=== PATIENT | female | born 1975 | race Caucasian/White ===

== ENCOUNTER 2017-05-15 07:39 | Inpatient (IN) ==
--- NOTE | 2017-05-15 08:02 | Emergency Department Note ---
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 Chest pain Qualifiers: Chest pain type: precordial pain Qualified Code(s): R07.2 - Precordial pain Disposition: Admitted As Inpatient Condition: Fair General Adult HPI - General Chief complaint: ED Chest Pain Stated complaint: CP/Rotator cuff torn Time Seen by Provider: 05/15/17 07:44 Source: patient Mode of arrival: private vehicle Limitations: no limitations Nursing Notes Reviewed: Yes Vital Signs Reviewed: Yes - History of Present Illness Pt Subjective Complaint: chest pain Onset (ago): day(s) (since yesterday morning) Location: chest Radiation: neck Pain Severity: moderate Pain Scale: 8 Quality: aching, dull Consistency: constant Improves with: nothing Worsens with: nothing Associated symptoms: Reports: malaise, nausea/vomiting (nausea). Denies: confusion, cough, diaphoresis, fever/chills, headaches, loss of appetite, rash, seizure, shortness of breath, syncope, weakness Treatments Prior to Arrival: other (percocet) - Related Data Home Medications Medication Instructions Recorded Confirmed Gabapentin [Neurontin] 1,800 mg PO HS 05/15/17 05/15/17 Gabapentin [Neurontin] 600 mg PO BID 05/15/17 05/15/17 Insulin ASPART [Novolog Flexpen] 10 unit SQ TID 05/15/17 05/15/17 Insulin Glargine [Lantus] 40 unit PO QAM 05/15/17 05/15/17 Oxycodone HCl 10 mg PO BID PRN 05/15/17 05/15/17 Allergies Allergy/AdvReac Type Severity Reaction Status Date / Time metformin AdvReac See Verified 05/15/17 11:17 Comments All systems ED: reviewed and negative except as stated. Constitutional: Denies: fever, chills, weakness Eyes: Denies: eye pain, eye discharge, vision change ENT ED: Denies: ear pain, throat pain, congestion, dysphagia Cardiovascular: Reports: as per HPI, chest pain. Denies: palpitations, dyspnea on exertion, orthopnea, edema, syncope Respiratory: Denies: cough, dyspnea, wheezes, hemoptysis, stridor, sputum production Gastrointestinal: Reports: nausea. Denies: abdominal pain, vomiting, diarrhea Musculoskeletal: Reports: arthralgia ("Rotator cuff injury") Integumentary: Denies: rash Neurological: Denies: headache, weakness, numbness, paresthesias, confusion, vertigo Hematological/Lymphatic: Denies: easy bleeding, easy bruising Past Medical History - Past Medical History Attestation: Yes The following information was validated with the patient. Source: patient Medical history: Reports: diabetes, fibromyalgia, hypertension Surgical history: Reports: hysterectomy Psychiatric history: Reports: depression - Social History Smoking Status: Never smoker Smokeless Tobacco Status: No Alcohol use: Reports: none Drug use: Reports: none Physical Exam - General Limitations: no limitations General appearance: alert, in no apparent distress - Head Head exam: atraumatic, normocephalic, normal inspection - Eye Eye exam: Present: normal appearance, PERRL, EOMI. Absent: scleral icterus, conjunctival injection, periorbital swelling - ENT ENT exam: normal exam, normal oropharynx, mucous membranes dry - Neck Neck exam: Present: normal inspection, full ROM, trachea midline. Absent: tenderness, meningismus, lymphadenopathy - Chest Chest inspection: Present: normal inspection, symmetric chest wall rise. Absent : tenderness - Respiratory Respiratory exam: Present: normal lung sounds bilaterally. Absent: respiratory distress, wheezes, stridor - Cardiovascular Cardiovascular exam: Present: regular rate, normal rhythm, normal heart sounds - Abdominal Exam Abdominal exam: Present: soft, Non-Tender. Absent: distention, guarding, rebound, rigidity, mass - Extremities Exam Extremities exam: Present: normal inspection - Back Exam Back exam: Present: normal inspection - Neurological Exam Neurological exam: Present: alert, oriented X3, CN II-XII intact, normal gait - Psychiatric Psychiatric exam: Present: normal affect, normal mood - Skin Skin exam: Present: warm, dry, intact, normal color Course Course Narrative: Patient presents from home for evaluation of chest pain x 24 hours. She has mild dyspnea and cough along with generalized malaise and nausea. She did no take her insulin this morning citing that she did not feel well. She states that her sugar has been high the past week. She denies hemoptysis, dizziness, syncope, headache, weakness, leg swelling or pain. She has no hx of DVT, PE or IL. She denies every having a stress test or heart cath. She denies known family hx of ACS at a young age. ECG is normal. Labs, CXR and pain meds have been ordered. Labs show a glucose of almost 500 with 0.32 serum ketones. Anion gap is 10. More fluids ordered. Insulin ordered. CXR shows Right lung pneumonia v/s effusion. ABX ordered. Case discussed with Dr. Holloway. He has had face to face time with the patient and agrees with the assessment and plan. He recommends admission. Hospitalist contacted. He has accepted the patient. Given the patient's 24 hours of unchanging, constant chest pain with a normal EKG and a normal troponin, I feel it is unlikely that she is experiencing chest pain from ACS. She is being admitted for further evaluation of the pain and pneumonia. Serial troponins will most likely be ordered. - Reevaluation(s) Reevaluation #1: PAtient is still having pain. No RADHA/SOB at this time. Sats are 100% on room air. Pain pill ordered. Time: 10:02 Reevaluation #2: repeat accu check 259 Time: 13:55 Vital Signs Temperature 97.7 F 05/15/17 07:39 Pulse Rate 90 05/15/17 07:39 Respiratory Rate 16 05/15/17 07:39 Blood Pressure 156/106 05/15/17 07:39 O2 Sat by Pulse Oximetry 99 05/15/17 07:39 Temperature 97.7 F 05/15/17 07:39 Pulse Rate 96 05/15/17 11:35 Respiratory Rate 16 05/15/17 11:35 Blood Pressure 128/81 05/15/17 11:35 O2 Sat by Pulse Oximetry 96 05/15/17 11:35 Oxygen Delivery Oxygen Delivery Room Air Medical Decision Making - Lab Data Result diagrams: 05/15/17 08:30 05/15/17 08:30 Lab Results 05/15/17 05/15/17 05/15/17 Range/Units 08:30 08:30 08:30 WBC (4.3-11.1) K/mcL RBC (3.82-4.97) M/mcL Hgb (11.5-15.4) g/dL Hct (35.3-44.9) % MCV (83.0-100.0) fL MCH (28.0-33.3) pg MCHC (31.6-35.5) g/dL RDW (11.5-14.5) % Plt Count (140-400) K/mcL MPV (9.4-12.4) fL Immature Gran % (0-4) % Seg Neutrophils % % Lymphocytes % % Monocytes % % Eosinophils % % Basophils % % Neutrophils # (1.6-8.9) K/mcL Lymphocytes # (0.6-4.6) K/mcL Monocytes # (0.0-1.3) K/mcL Eosinophils # (0.0-0.6) K/mcL Basophils # (0.0-0.2) K/mcL PT 11.0 (9.4-12.1) Seconds INR 1.0 APTT 28.7 (26.0-36.0) Seconds Sodium (136-145) mEq/L Potassium (3.5-4.5) mEq/L Chloride (98-109) mEq/L Carbon Dioxide (19-29) mEq/L BUN (7-20) mg/dL Creatinine (0.57-1.11) mg/dL Est GFR ( Amer) (> 60) Est GFR (Non-Af Amer) (> 60) BUN/Creatinine Ratio (6-26) Glucose (70-99) mg/dL Calculated Osmolality (280-300) Calcium (8.6-10.8) mg/dL Total Bilirubin 0.4 (0.2-1.2) mg/dL Direct Bilirubin 0.2 (0.0-0.5) mg/dL Indirect Bilirubin 0.2 (0.0-1.2) mg/dL AST 10 (5-34) Units/L ALT 14 (0-55) Units/L Alkaline Phosphatase 79 (38-126) Units/L Troponin I (0-0.03) ng/mL Serum Total Protein 6.5 (6.0-8.3) g/dL Albumin 3.1 L (3.5-5.0) g/dL Globulin 3.4 (2.4-3.5) g/dL Albumin/Globulin Ratio 0.9 L (1.1-2.2) Lipase 34 (8-78) Units/L Beta-Hydroxybutyric Acd (0.02-0.27) mmol/L 05/15/17 05/15/17 05/15/17 Range/Units 08:30 08:30 08:30 WBC 6.7 (4.3-11.1) K/mcL RBC 4.99 H (3.82-4.97) M/mcL Hgb 14.8 (11.5-15.4) g/dL Hct 43.2 (35.3-44.9) % MCV 86.6 (83.0-100.0) fL MCH 29.7 (28.0-33.3) pg MCHC 34.3 (31.6-35.5) g/dL RDW 13.9 (11.5-14.5) % Plt Count 198 (140-400) K/mcL MPV 11.1 (9.4-12.4) fL Immature Gran % 0.3 (0-4) % Seg Neutrophils % 70.4 % Lymphocytes % 23.6 % Monocytes % 3.1 % Eosinophils % 2.2 % Basophils % 0.4 % Neutrophils # 4.7 (1.6-8.9) K/mcL Lymphocytes # 1.6 (0.6-4.6) K/mcL Monocytes # 0.2 (0.0-1.3) K/mcL Eosinophils # 0.2 (0.0-0.6) K/mcL Basophils # 0.0 (0.0-0.2) K/mcL PT (9.4-12.1) Seconds INR APTT (26.0-36.0) Seconds Sodium 135 L (136-145) mEq/L Potassium 4.2 (3.5-4.5) mEq/L Chloride 100 (98-109) mEq/L Carbon Dioxide 25 (19-29) mEq/L BUN 14 (7-20) mg/dL Creatinine 0.95 (0.57-1.11) mg/dL Est GFR ( Amer) > 60 (> 60) Est GFR (Non-Af Amer) > 60 (> 60) BUN/Creatinine Ratio 15 (6-26) Glucose 492 H (70-99) mg/dL Calculated Osmolality 302 H (280-300) Calcium 9.0 (8.6-10.8) mg/dL Total Bilirubin (0.2-1.2) mg/dL Direct Bilirubin (0.0-0.5) mg/dL Indirect Bilirubin (0.0-1.2) mg/dL AST (5-34) Units/L ALT (0-55) Units/L Alkaline Phosphatase (38-126) Units/L Troponin I 0.00 (0-0.03) ng/mL Serum Total Protein (6.0-8.3) g/dL Albumin (3.5-5.0) g/dL Globulin (2.4-3.5) g/dL Albumin/Globulin Ratio (1.1-2.2) Lipase (8-78) Units/L Beta-Hydroxybutyric Acd 0.32 H (0.02-0.27) mmol/L
[2017-05-15] MEDS ORDERED: Ondansetron 4 MG/2 ML VIAL IVP ONE (08:20)
[2017-05-15] MEDS ORDERED: Aspirin 81 MG TAB.CHEW PO ONE (08:20)
[2017-05-15] MEDS ORDERED: *HR* Morphine 2 MG/ML SYRINGE IVP ONE (08:20)
[2017-05-15] MEDS ORDERED: Nitroglycerin 0.4 MG TAB.SUBL SL PRN (08:22)
[2017-05-15 08:39] LABS: Basophils % 0.4 %; Eosinophils # 0.2 K/mcL (0.0-0.6); Eosinophils % 2.2 %; Hematocrit 43.2 % (35.3-44.9); Hemoglobin 14.8 g/dL (11.5-15.4); Immature Granulocytes % 0.3 % (0-4); Lymphocytes # 1.6 K/mcL (0.6-4.6); Lymphocytes % 23.6 %; Mean Corpuscular HGB Conc 34.3 g/dL (31.6-35.5); Mean Corpuscular Hemoglobin 29.7 pg (28.0-33.3); Mean Corpuscular Volume 86.6 fL (83.0-100.0); Mean Platelet Volume 11.1 fL (9.4-12.4); Monocytes # 0.2 K/mcL (0.0-1.3); Monocytes % 3.1 %; Neutrophils # 4.7 K/mcL (1.6-8.9); Platelet Count 198 K/mcL (140-400); Red Blood Count 4.99 M/mcL (3.82-4.97); Red Cell Distribution Width 13.9 % (11.5-14.5); Segmented Neutrophils % 70.4 %
[2017-05-15 08:46] LABS: Activated Partial Thrombo Time 28.7 Seconds (26.0-36.0)
[2017-05-15 08:52] LABS: BUN/Creatinine Ratio 15 (6-26); Blood Urea Nitrogen 14 mg/dL (7-20); Carbon Dioxide 25 mEq/L (19-29); Chloride 100 mEq/L (98-109); Glucose 492 mg/dL (70-99); Osmolality,Calculated 302 (280-300); Potassium 4.2 mEq/L (3.5-4.5); Sodium 135 mEq/L (136-145); eGFR For African Americans > 60 (> 60); eGFR For Non-African Americans > 60 (> 60)
[2017-05-15 08:54] LABS: Albumin 3.1 g/dL (3.5-5.0); Albumin/Globulin Ratio 0.9 (1.1-2.2); Bilirubin,Direct 0.2 mg/dL (0.0-0.5); Bilirubin,Indirect 0.2 mg/dL (0.0-1.2); Bilirubin,Total 0.4 mg/dL (0.2-1.2); Globulin 3.4 g/dL (2.4-3.5); Total Protein 6.5 g/dL (6.0-8.3)
[2017-05-15] MEDS ORDERED: 0.9 % Sodium Chloride 1,000 ML IVC ONE (09:51)
[2017-05-15] MEDS ORDERED: Insulin Human Regular 10 UNIT in 0.9 % Sodium Chloride 10 ML IV ONE (10:03)
[2017-05-15 10:10] LABS: Beta-Hydroxybutyric Acid 0.32 mmol/L (0.02-0.27)
[2017-05-15] MEDS ORDERED: Azithromycin 250 MG TABLET PO ONE (10:10)
[2017-05-15] MEDS ORDERED: *HR* OxyCODONE/APAP 5/325 TABLET PO ONE (10:11)
--- NOTE | 2017-05-15 11:11 | Emergency Department Note ---
START Narrative - START START: I examined this patient and my medical decision-making was reviewed with the Resident Physician. I agree with the documented findings, disposition and treatment plan as described except to the extent set forth below. 42-year-old female who presented to the ER with chest pain. Discovered that she had elevated blood sugars and had some ketones present concerning for early DKA. Patient is be evaluated for chest pain standpoint. Her troponin was negative. Chest x-ray showed possible right lower lobe infiltrate. In the setting of these findings as well as the elevated sugar will admit the patient overnight for observation.
[2017-05-15] MEDS ORDERED: Acetaminophen 325 MG TABLET PO PRN (14:32)
[2017-05-15] MEDS ORDERED: Ondansetron 4 MG/2 ML VIAL IVP PRN (14:32)
[2017-05-15] MEDS ORDERED: Naloxone 0.4 MG/ML INJ IVP PRN (14:32)
[2017-05-15] MEDS ORDERED: Pantoprazole 40 MG VIAL IVP SCH (14:45)
--- NOTE | 2017-05-15 15:03 | Internal Med History&Physical ---
<Marcelo Corona - Last Filed: 05/15/17 15:42> Date of Encounter: 05/15/17 Time of Encounter: 13:00 Assessment and Plan (1) Chest pain Current visit: Yes Status: Acute Pt. reports chest pain since yesterday that she describes as sharp and stabbing pressure is constant and not relieved or aggravated by anything. Patient denies previous cardiac history or recent stress test or echo. EKG today shows sinus rhythm with normal ECG. Echocardiogram ordered. Continuous cardiac telemetry. Initial troponin 0.00. Trend x2. Nothing by mouth at midnight. Nuclear pharm stress test ordered in a.m. Consider cardiology consult based on echo and stress test results. Patient to be monitored closely for signs of increasing cardiac and/or respiratory distress. Qualifiers: Chest pain type: other chest pain Qualified Code(s): R07.89 - Other chest pain; R07.8 - Other chest pain (2) Pneumonia Current visit: Yes Status: Acute 1-View CXR of the chest today shows findings suggesting a mild right pleural effusion and patchy right lung base atelectasis versus pneumonia. 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 Blood cultures x 2. Lactic acid. IV 0.9 NS 100 mL/HR. Legionella and strep pneumoniae antigens ordered IVPB azithromycin 500 mg daily and Levaquin 750 mg daily for infection coverage. Pt. does not currently meet sepsis criteria but will monitor pt. and f/u labs for signs of increasing infection, cardiac, and/or respiratory distress. Patient at high risk for further morbidity and sepsis based on current symptoms for pneumonia and chest pain, and risk factors. Inpatient. Qualifiers: Pneumonia type: due to unspecified organism Laterality: right Lung location: lower lobe of lung Qualified Code(s): J18.1 - Lobar pneumonia, unspecified organism (3) HTN (hypertension) Current visit: Yes Status: Chronic Hx of chronic HTN. Pt. states she does not take HTN medication at this time since her BP has been WNL. Monitor pt. and VS. Will add lisinopril if pt. becomes hypertensive. Qualifiers: Hypertension type: essential hypertension Qualified Code(s): I10 - Essential (primary) hypertension (4) HLD (hyperlipidemia) Current visit: Yes Status: Chronic Hx of chronic HLD. Pt. reports she does not currently take a statin. Lipid panel in a.m. labs. Add Lipitor 20 mg HS. Qualifiers: Hyperlipidemia type: pure hypercholesterolemia Qualified Code(s): E78.00 - Pure hypercholesterolemia, unspecified; E78.0 - Pure hypercholesterolemia (5) Diabetes Current visit: Yes Status: Chronic Hx of chronic diabetes. BG 492 on admission. Continue patient's insulin and add low-dose correction insulin sliding scale with hyperglycemic protocol. BG checks before meals at bedtime. A1c in a.m. labs. Qualifiers: Diabetes mellitus type: type 2 Diabetes mellitus complication status: with unspecified complications Diabetes mellitus [facility] insulin use: with [facility] use Qualified Code(s): E11.8 - Type 2 diabetes mellitus with unspecified complications; Z79.4 - half-way (current) use of insulin; Z79.4 - half-way ( current) use of insulin; Z79.4 - half-way (current) use of insulin; Z79.4 - half-way (current) use of insulin (6) Fibromyalgia Current visit: Yes Status: Chronic Hx of chronic fibromyalgia. Continue Neurontin. (7) DVT prophylaxis Current visit: Yes Status: Acute Lovenox 40 mg 0600 daily for DVT prophylaxis. Internal Medicine - H&P: HPI Chief complaint: Chest pain Admitted From: Emergency Dept Plans for Post Hospital Care: Home History of present illness: Ms. 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 Pt. reports there were no alleviating or aggravating factors. She also states that she has a lot of stress in her life and has chronic depression but does not take anything for this. She reports no recent hx of echocardiogram or stress test. Patient reports chest pain/pressure , nausea, weakness, and fatigue, but denies recent illness, fever, chills, vomiting, headache, abdominal pain, palpitations, changes in vision, unusual bleeding, shortness of breath, dizziness, lightheadedness, numbness, tingling, pre-syncope, or syncope. Past Med Surg Social Fam HX - Past Medical History Source: patient, old records reviewed Medical history: diabetes, fibromyalgia, hyperlipidemia, hypertension Psychiatric history: depression - Past Surgical History Surgical History: hysterectomy - Social History Smoking Status: Never smoker Smokeless Tobacco Status: No Alcohol use: none Drug use: none Current living situation: Home, With Family Activity Level: Independent ambulation Recent Out of Country Travel Within the Last 8 Weeks: No Exposure or Possible Exposure to Illness During Travel: No - Family History Father History Unknown: Yes Race: Family Member Ethnicity: Non- Living Status: Still Living Mother Race: Family Member Ethnicity: Non- Living Status: Still Living Hx Family Cardiac Disorders: Yes (MS, HTN, HLD) Hx Family Genitourinary Disorders: Yes (CKD on dialysis) Hx Family Endocrine Disorder: Yes (DM) Brother Race: Family Member Ethnicity: Non- Living Status: Still Living Hx Family Endocrine Disorder: Yes (Cirrhosis) Sister Race: Family Member Ethnicity: Non- Living Status: Still Living Hx Family Cardiac Disorders: Yes (MS, HLD, HTN) Hx Family Genitourinary Disorders: Yes (CKD) Hx Family Endocrine Disorder: Yes (DM) Internal Medicine - H&P: Meds Gabapentin [Neurontin] 1,800 mg PO HS 05/15/17 [History] Gabapentin [Neurontin] 600 mg PO BID 05/15/17 [History] Insulin ASPART [Novolog Flexpen] 10 unit SQ TID 05/15/17 [History] Insulin Glargine [Lantus] 40 unit PO QAM 05/15/17 [History] Oxycodone HCl 10 mg PO BID PRN 05/15/17 [History] 3 Allergy/AdvReac Type Severity Reaction Status Date / Time metformin AdvReac See Verified 05/15/17 11:17 Comments All Systems PM: A 10-system review of systems was performed and is negative for pertinent findings except as documented above in the HPI. - Constitutional Constitutional: as per HPI, fatigue, weakness, no chills, no fever(s), no night sweats - EENT Eyes: no change in vision, no discharge, no pain, no photophobia Ears: no ear discharge, no ear pain, no tinnitus Nose, mouth and throat: no dysphagia, no nasal discharge, no neck pain, no sore throat - Breasts Breasts: as per HPI - Cardiovascular Cardiovascular ROS IM: as per HPI, chest pain - Respiratory Respiratory: no cough, no dyspnea, no wheezing, no excessive phlegm production - Gastrointestinal Gastrointestinal: as per HPI, nausea - Genitourinary Genitourinary: no change in urinary stream, no dysuria, no flank pain, no hematuria Menstruation: as per HPI, post hysterectomy - Musculoskeletal Musculoskeletal ROS IM: myalgias, no numbness, no tingling - Integumentary Integumentary IM: no rash, no unusual bruising - Neurological Neurological ROS: no confusion, no convulsions, no focal weakness, no numbness, no tingling, no tremor(s) - Psychiatric Psychiatric: as per HPI, depression - Endocrine Endocrine IM: as per HPI - Hematologic/Lymphatic Hematologic/Lymphatic: no easy bruising - Allergic/Immunologic Allergic/Immunologic: as per HPI - Constitutional Vitals: Temp Pulse Resp BP Pulse Ox 97.7 F 85 18 139/89 96 05/15/17 07:39 05/15/17 13:24 05/15/17 14:35 05/15/17 14:35 05/15/17 13:24 General appearance: Present: cooperative, mild distress, A&O X 3, pleasant, obese, answers questions appropriately - Head Head exam: Present: atraumatic, normal inspection, normocephalic - Eye Eye exam: Present: PERRL, conjuntiva pink, sclera anicteric Pupils: Present: PERRL - ENT ENT exam: Present: normal exam, normal external ear exam - Neck Neck exam general surgery: Present: normal inspection, supple, trachea midline. Absent: lymphadenopathy - Respiratory Respiratory exam: Present: CTAB. Absent: accessory muscle use, rales, rhonchi, wheezes - Cardiovascular Cardiovascular exam: Present: RRR, +S1, +S2. Absent: diastolic murmur, gallop, rubs, systolic murmur - GI/Abdominal GI/Abdominal exam: Present: normal bowel sounds, soft, no peritoneal signs. Absent: distended, tenderness - Rectal Rectal exam: Present: deferred - Additional comments: exam deferred. - Extremities Exam Extremities exam: Present: warm, radial pulses palpable and symmetrical. Absent : calf tenderness, cyanotic, pedal edema - Back Exam Back exam: Present: normal inspection - Neurological Exam Neurological exam: Present: CN II-XII intact, oriented X3, no focal deficits. Absent: pronater drift, facial droop, speech deficit - Psychiatric Psychiatric exam: Present: flat affect - Skin Skin exam: Present: dry, intact Internal Med - H&P Results - Labs CBC & Chem 7: 05/15/17 08:30 05/15/17 08:30 - EKG Data EKG shows normal: sinus rhythm - EKG Data Prior EKG available for review: no Interpretation IM: normal EKG EKG comments: 05/15/17 15:20 EKG dated 05/15/17 shows sinus rhythm and normal ECG. - Diagnostic Studies Chest x-ray Additional comments: Impressions Chest X-Ray 05/15/17 08:20 IMPRESSION: 1. Findings suggesting a mild right pleural effusion and patchy right lung base atelectasis versus pneumonia. 2. Stable right hemidiaphragm elevation. D/ / 05/15/2017 09:04:09 Sterling Witt MD / timothy Interpreting Provider: Sterling Witt MD <George Solomon P - Last Filed: 05/15/17 18:48> Date of Encounter: 05/15/17 Internal Medicine - H&P: HPI History of present illness: Ms. Gu is a 42 year old female All Systems PM: A 10-system review of systems was performed and is negative for pertinent findings except as documented above in the HPI. - Constitutional Vitals: Temp Pulse Resp BP Pulse Ox 97.8 F 81 18 137/85 97 05/15/17 15:03 05/15/17 15:03 05/15/17 15:03 05/15/17 15:03 05/15/17 15:30 Internal Med - H&P Results - Labs CBC & Chem 7: 05/15/17 08:30 05/15/17 08:30 Labs: Cardiac Enzymes 05/15/17 Range/Units 16:33 Troponin I 0.01 (0-0.03) ng/mL - Attending Attestation I examined this patient and my medical decision-making was reviewed with the Resident Physician. I agree with the documented findings, disposition and treatment plan as described except to the extent set forth below. Chest pain to rule out ACS protocol. I agree with assessment and plan drawn above.
[2017-05-15] MEDS: 0.9 % Sodium Chloride 1,000 ML IVC SCH (15:14)
[2017-05-15] MEDS: Levofloxacin 750 MG/150 ML 750 MG/150 ML BAG IVPB SCH (15:14)
[2017-05-15] MEDS ORDERED: *HR* Dextrose 50 % in Water (Syg) 50 ML SYRINGE IVP PRN (15:28)
[2017-05-15] MEDS ORDERED: Dextrose Gel 15 GM PO PRN ×2 (15:28)
[2017-05-15] MEDS ORDERED: D5% in Water 1,000 ML IVC PRN (15:28)
[2017-05-15] MEDS: *HR* Morphine 2 MG/ML SYRINGE IVP PRN ×2 (16:38→22:33)
[2017-05-15] MEDS: Insulin LISPRO 300 UNITS/3 ML VIAL SQ SCH ×2 (16:41→19:48)
--- NOTE | 2017-05-15 19:39 | Electrocardiograph Report ---
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
[2017-05-15] MEDS: *HR* HYDROcodone/Acet 5/325 mg TABLET PO PRN (19:46)
[2017-05-15] MEDS: Gabapentin 300 MG CAPSULE PO SCH (19:46)
[2017-05-15] MEDS ORDERED: NON-FORMULARY MEDICATION 1 EACH EACH (Insulin Aspart [Novolog Flexpen] 10 UNIT) SQ SCH (21:00)
[2017-05-16] MEDS: 0.9 % Sodium Chloride 1,000 ML IVC SCH (03:53)
[2017-05-16] MEDS: *HR* Morphine 2 MG/ML SYRINGE IVP PRN ×4 (03:54→21:47)
[2017-05-16 04:42] LABS: Basophils % 0.4 %; Eosinophils # 0.2 K/mcL (0.0-0.6); Eosinophils % 2.3 %; Hematocrit 42.4 % (35.3-44.9); Hemoglobin 14.2 g/dL (11.5-15.4); Immature Granulocytes % 0.3 % (0-4); Lymphocytes # 2.3 K/mcL (0.6-4.6); Lymphocytes % 33.2 %; Mean Corpuscular HGB Conc 33.5 g/dL (31.6-35.5); Mean Corpuscular Hemoglobin 29.5 pg (28.0-33.3); Mean Platelet Volume 11.2 fL (9.4-12.4); Monocytes # 0.3 K/mcL (0.0-1.3); Monocytes % 4.2 %; Neutrophils # 4.1 K/mcL (1.6-8.9); Platelet Count 180 K/mcL (140-400); Red Blood Count 4.82 M/mcL (3.82-4.97); Red Cell Distribution Width 14.1 % (11.5-14.5); Segmented Neutrophils % 59.6 %
[2017-05-16 04:53] LABS: Hemoglobin A1C 9.6 %
[2017-05-16 04:59] LABS: Alanine Aminotransferase 11 Units/L (0-55); Albumin 2.7 g/dL (3.5-5.0); Albumin/Globulin Ratio 0.9 (1.1-2.2); Alkaline Phosphatase 69 Units/L (38-126); Aspartate Amino Transferase 9 Units/L (5-34); BUN/Creatinine Ratio 20 (6-26); Bilirubin,Total 0.3 mg/dL (0.2-1.2); Blood Urea Nitrogen 16 mg/dL (7-20); Calcium 8.4 mg/dL (8.6-10.8); Carbon Dioxide 25 mEq/L (19-29); Chloride 107 mEq/L (98-109); Chol/HDL Ratio 6.1 (0-4.9); Cholesterol 208 mg/dL (< 200); Globulin 3.1 g/dL (2.4-3.5); Glucose 297 mg/dL (70-99); HDL Cholesterol 34 mg/dL (40-59); LDL Cholesterol,Calculated 134 mg/dL (0-99); Magnesium 1.5 mg/dL (1.6-2.6); Osmolality,Calculated 304 (280-300); Potassium 3.9 mEq/L (3.5-4.5); Sodium 141 mEq/L (136-145); Total Protein 5.8 g/dL (6.0-8.3); Triglycerides 201 mg/dL (< 150); eGFR For African Americans > 60 (> 60); eGFR For Non-African Americans > 60 (> 60)
[2017-05-16] MEDS: *HR* Enoxaparin 40 MG/0.4 ML SYRINGE SQ SCH (05:37)
[2017-05-16] MEDS ORDERED: Regadenoson 0.4 MG/5 ML SYRINGE IVP ONE (06:30)
[2017-05-16] MEDS ORDERED: NON-FORMULARY MEDICATION 1 EACH EACH (Insulin Glargine [Lantus] 40 UNIT) PO SCH (09:00)
[2017-05-16] MEDS ORDERED: Azithromycin 500 MG in D5% in Water 250 ML IVPB SCH (10:00)
[2017-05-16] MEDS: Levofloxacin 750 MG/150 ML 750 MG/150 ML BAG IVPB SCH (10:05)
[2017-05-16] MEDS: Insulin DETEMIR 100 UNIT/ML X5UNITS SQ SCH (10:07)
[2017-05-16] MEDS: Insulin LISPRO 300 UNITS/3 ML VIAL SQ SCH ×6 (10:07→21:48)
[2017-05-16] MEDS: Aspirin Enteric Coated 81 MG Tablet PO SCH (10:09)
[2017-05-16] MEDS: Gabapentin 300 MG CAPSULE PO SCH ×3 (10:09→21:43)
[2017-05-16] MEDS ORDERED: Fluconazole 100 MG TABLET PO ONE (10:46)
--- NOTE | 2017-05-16 15:27 | Internal Med Progress Note ---
Date of Encounter: 05/16/17 Time of Encounter: 15:25 - Assessment and plan (1) Pneumonia Current Visit: Yes Status: Acute Qualifiers: Pneumonia type: due to unspecified organism Laterality: right Lung location: lower lobe of lung Qualified Code(s): J18.1 - Lobar pneumonia, unspecified organism (2) COPD exacerbation Current Visit: Yes Status: Acute (3) Chest pain Current Visit: Yes Status: Acute Qualifiers: Chest pain type: other chest pain Qualified Code(s): R07.89 - Other chest pain; R07.8 - Other chest pain (4) HTN (hypertension) Current Visit: Yes Status: Chronic Qualifiers: Hypertension type: essential hypertension Qualified Code(s): I10 - Essential (primary) hypertension (5) HLD (hyperlipidemia) Current Visit: Yes Status: Chronic Qualifiers: Hyperlipidemia type: pure hypercholesterolemia Qualified Code(s): E78.00 - Pure hypercholesterolemia, unspecified; E78.0 - Pure hypercholesterolemia (6) Diabetes Current Visit: Yes Status: Chronic Qualifiers: Diabetes mellitus type: type 2 Diabetes mellitus complication status: with unspecified complications Diabetes mellitus [facility] insulin use: with industry consultant use Qualified Code(s): E11.8 - Type 2 diabetes mellitus with unspecified complications; 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 Negative troponin. Echocardiogram showed EF of 60% with normal LV systolic function but diastolic dysfunction and no wall motion abnormality or valvular abnormality. A stress test has been done and results are pending. Also noted to have right-sided pneumonia with right middle lobe infiltrates and effusion. Continue IV antibiotics. Magnesium was noted to low and will be supplemented and recheck. Patient diabetes seems quite uncontrolled with elevated hemoglobin A1c. I will increase her Lantus and Humalog. At this time patient is asymptomatic but she did not describe her chest pain as pleuritic. - Constitutional Vitals: Temp Pulse Resp BP Pulse Ox 98.4 F 82 18 108/72 94 05/16/17 11:00 05/16/17 11:00 05/16/17 11:00 05/16/17 11:00 05/16/17 11:00 General appearance: Present: cooperative, mild distress, A&O X 3, pleasant, obese, answers questions appropriately - Head Head exam: Present: atraumatic, normocephalic - Eye Eye exam: Present: PERRL, conjuntiva pink, sclera anicteric Pupils: Present: PERRL - Neck Neck exam general surgery: Present: supple, trachea midline. Absent: lymphadenopathy - Respiratory Respiratory exam: Present: CTAB. Absent: accessory muscle use, rales, rhonchi, wheezes - Cardiovascular Cardiovascular exam: Present: RRR, +S1, +S2. Absent: diastolic murmur, gallop, rubs, systolic murmur - GI/Abdominal GI/Abdominal exam: Present: normal bowel sounds, soft, no peritoneal signs. Absent: distended, tenderness - Extremities Exam Extremities exam: Present: warm, radial pulses palpable and symmetrical. Absent : calf tenderness, cyanotic, pedal edema - Neurological Exam Neurological exam: Present: CN II-XII intact, oriented X3, no focal deficits. Absent: pronater drift, facial droop, speech deficit - Skin Skin exam: Present: dry, intact Internal Medicine: Result - Labs CBC & Chem 7: 05/16/17 03:50 05/16/17 03:50 Labs: Short CBC 05/16/17 Range/Units 03:50 WBC 6.9 (4.3-11.1) K/mcL Hgb 14.2 (11.5-15.4) g/dL Hct 42.4 (35.3-44.9) % Plt Count 180 (140-400) K/mcL Neutrophils # 4.1 (1.6-8.9) K/mcL BMP 05/16/17 03:50 Sodium 141 Potassium 3.9 Chloride 107 Carbon Dioxide 25 BUN 16 Creatinine 0.81 Glucose 297 H Calcium 8.4 L Cardiac Enzymes 05/15/17 05/15/17 Range/Units 16:33 22:18 Troponin I 0.01 0.00 (0-0.03) ng/mL Liver Function 05/16/17 Range/Units 03:50 Total Bilirubin 0.3 (0.2-1.2) mg/dL AST 9 (5-34) Units/L ALT 11 (0-55) Units/L Alkaline Phosphatase 69 (38-126) Units/L Albumin 2.7 L (3.5-5.0) g/dL - ABG Interpretation ABG results: PT/INR, D-dimer PT 11.0 Seconds (9.4-12.1) 05/15/17 08:30 - Impressions Impressions Echocardiogram 05/16/17 14:38 Impressions: LVEF 60%. Mild left ventricular diastolic dysfunction. Normal right ventricular structure and function. No significant valvular dysfunction. No pulmonary hypertension. Left Ventricular Wall Motion: Rest Echo Findings All wall segments showed normal motion. Findings: Study Quality * Technically adequate exam. ECG Findings * Normal sinus rhythm. Left Ventricle * LVEF 60%. * Normal LV chamber size, wall thickness and function. * Mild left ventricular diastolic dysfunction. Right Ventricle * Normal right ventricular structure and function. Left Atrium * Normal left atrial size. Right Atrium * Normal right atrial size. Aortic Valve * No aortic regurgitation. * Trileaflet aortic valve. * Normal aortic valve structure. * No aortic stenosis. Mitral Valve * Normal mitral valve structure. * No mitral stenosis. * Trace mitral regurgitation. Tricuspid Valve * Tricuspid valve not well visualized. * No tricuspid regurgitation. * Estimated RA pressure is 3 mmHg. Pulmonic Valve * Pulmonic valve is not well visualized. * No pulmonic stenosis. * No pulmonic regurgitation. Pulmonary Artery * Pulmonary artery not well visualized. Aorta * Normally sized aortic root. Pericardium * There is no pericardial effusion present. Interatrial Septum * No evidence of PFO by color Doppler. IVC * Normal IVC dimensions and inspiratory collapse. Consult Discharge Plan - Plan Referrals: NONE,PCP [Primary Care Provider] -
[2017-05-16] MEDS: *HR* HYDROcodone/Acet 5/325 mg TABLET PO PRN (20:11)
[2017-05-17 03:36] LABS: Basophils % 0.3 %; Eosinophils # 0.2 K/mcL (0.0-0.6); Eosinophils % 2.8 %; Hematocrit 36.9 % (35.3-44.9); Immature Granulocytes % 0.3 % (0-4); Lymphocytes # 2.3 K/mcL (0.6-4.6); Lymphocytes % 35.9 %; Mean Corpuscular HGB Conc 33.6 g/dL (31.6-35.5); Mean Corpuscular Hemoglobin 29.6 pg (28.0-33.3); Mean Corpuscular Volume 88.1 fL (83.0-100.0); Mean Platelet Volume 11.7 fL (9.4-12.4); Monocytes # 0.3 K/mcL (0.0-1.3); Monocytes % 4.7 %; Neutrophils # 3.5 K/mcL (1.6-8.9); Platelet Count 199 K/mcL (140-400); Red Blood Count 4.19 M/mcL (3.82-4.97)
[2017-05-17 03:38] LABS: Hemoglobin 12.4 g/dL (11.5-15.4)
[2017-05-17 03:53] LABS: Alanine Aminotransferase 7 Units/L (0-55); Albumin 2.5 g/dL (3.5-5.0); Alkaline Phosphatase 60 Units/L (38-126); Aspartate Amino Transferase 8 Units/L (5-34); BUN/Creatinine Ratio 22 (6-26); Bilirubin,Total 0.2 mg/dL (0.2-1.2); Blood Urea Nitrogen 17 mg/dL (7-20); Calcium 8.3 mg/dL (8.6-10.8); Carbon Dioxide 22 mEq/L (19-29); Chloride 109 mEq/L (98-109); Globulin 2.6 g/dL (2.4-3.5); Glucose 415 mg/dL (70-99); Osmolality,Calculated 303 (280-300); Potassium 4.2 mEq/L (3.5-4.5); Sodium 137 mEq/L (136-145); Total Protein 5.1 g/dL (6.0-8.3); eGFR For African Americans > 60 (> 60); eGFR For Non-African Americans > 60 (> 60)
[2017-05-17] MEDS: *HR* Morphine 2 MG/ML SYRINGE IVP PRN (04:45)
[2017-05-17] MEDS: 0.9 % Sodium Chloride 1,000 ML IVC SCH (04:46)
[2017-05-17] MEDS: *HR* Enoxaparin 40 MG/0.4 ML SYRINGE SQ SCH (06:47)
[2017-05-17] MEDS: Gabapentin 300 MG CAPSULE PO SCH ×2 (07:35→11:48)
[2017-05-17] MEDS: *HR* HYDROcodone/Acet 5/325 mg TABLET PO PRN ×2 (07:35→11:48)
[2017-05-17] MEDS: Aspirin Enteric Coated 81 MG Tablet PO SCH (07:35)
[2017-05-17] MEDS: Insulin LISPRO 300 UNITS/3 ML VIAL SQ SCH ×4 (07:36→11:40)
[2017-05-17] MEDS: Levofloxacin 750 MG/150 ML 750 MG/150 ML BAG IVPB SCH (07:38)
[2017-05-17] MEDS: Insulin DETEMIR 100 UNIT/ML X5UNITS SQ SCH (08:14)
[2017-05-17 10:44] VITALS: BP 136/85
--- NOTE | 2017-05-17 14:20 | Discharge Summary ---
Date of Encounter: 05/17/17 Time of Encounter: 14:04 - Discharge Diagnosis (1) Pneumonia Priority: Primary Status: Acute Qualifiers: Pneumonia type: due to unspecified organism Laterality: right Lung location: lower lobe of lung Qualified Code(s): J18.1 - Lobar pneumonia, unspecified organism (2) COPD exacerbation Priority: Primary Status: Acute (3) Chest pain Priority: Primary Status: Acute Qualifiers: Chest pain type: other chest pain Qualified Code(s): R07.89 - Other chest pain; R07.8 - Other chest pain (4) HTN (hypertension) Priority: Secondary Status: Chronic Qualifiers: Hypertension type: essential hypertension Qualified Code(s): I10 - Essential (primary) hypertension (5) HLD (hyperlipidemia) Priority: Secondary Status: Chronic Qualifiers: Hyperlipidemia type: pure hypercholesterolemia Qualified Code(s): E78.00 - Pure hypercholesterolemia, unspecified; E78.0 - Pure hypercholesterolemia (6) Diabetes Priority: Secondary Status: Chronic Qualifiers: Diabetes mellitus type: type 2 Diabetes mellitus complication status: with unspecified complications Diabetes mellitus nursing home insulin use: with adjunct faculty for medical terminology use Qualified Code(s): E11.8 - Type 2 diabetes mellitus with unspecified complications; 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; Z79.4 - [facility] ( current) use of insulin; Z79.4 - [facility] (current) use of insulin; 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 05/17/17 [Rx] Atorvastatin [Lipitor] 20 mg PO HS #30 tablet 05/17/17 [Rx] Metoprolol [Lopressor] 12.5 mg PO BID #30 tablet 05/17/17 [Rx] Nitroglycerin 0.4 mg SL Q5MIN PRN #25 tab.subl 05/17/17 [Rx] levoFLOXacin [Levaquin] 750 mg PO Q24H #7 tablet 05/17/17 [Rx] Allergies/Adverse Reactions: 3 Allergy/AdvReac Type Severity Reaction Status Date / Time metformin AdvReac See Verified 05/15/17 11:17 Comments Date of admission: 05/15/17 14:58 Primary care physician: PCP NONE Consults: 05/15/17 15:29 Consult to Nutrition [CONS] Routine Comment: Consulting Provider: NUTRITION Reason for Dietary Consult: MST Score Discharging clinician: Jennifer Lyn Anticipated date of discharge: 05/17/17 - Patient Status Disposition: Home, Self-Care Condition: Fair Functional capacity at discharge: independent ambulation Overall status at discharge: patient is progressing back to baseline - Discharge Instructions Instructions: Metoprolol (By mouth), Nitroglycerin (By mouth), Atorvastatin ( By mouth), Levofloxacin (By mouth), Chest Pain (DC), Pneumonia (DC) Follow Up With: Marcelo Molina CNP [Advanced Practice Nurse] - 05/22/17 1:00 pm (Please follow up with your primary care in a week) Vinny Russell [Partnered Physician] - 05/23/17 1:00 pm (please follow up as schedule...) - Diet and Activity Activity: resume usual activities as tolerated Diet: advance to your usual diet Hospital course: Ms. Gu is a 42 year old female Admitted for chest pain. Negative troponin. Echocardiogram showed EF of 60% with normal LV systolic function but diastolic dysfunction and no wall motion abnormality or valvular abnormality. A stress test has been done and perfusion scan is negative as well as the stress portion however there is an apical defect of unclear significance. Patient symptoms have resolved. She will be started on beta michell and aspirin when necessary nitrates for now. She will be referred to cardiology for outpatient consultation for further assessment.. Also noted to have right- sided pneumonia with right middle lobe infiltrates and effusion. Continue antibiotics. Patient diabetes seems quite uncontrolled with elevated hemoglobin A1c. I will increase her Lantus and Humalog. At this time patient is asymptomatic . - Time Spent with Patient Total time spent providing and/or coordinating discharge services: Greater than 30 minutes - Constitutional Vitals: Temp Pulse Resp BP Pulse Ox 98.5 F 90 18 136/85 91 05/17/17 10:36 05/17/17 10:36 05/17/17 10:36 05/17/17 10:36 05/17/17 10:36 General appearance: Present: cooperative, mild distress, A&O X 3, pleasant, obese, answers questions appropriately - Head Head exam: Present: atraumatic, normocephalic - Eye Eye exam: Present: PERRL, conjuntiva pink, sclera anicteric Pupils: Present: PERRL - Neck Neck exam general surgery: Present: supple, trachea midline. Absent: lymphadenopathy - Respiratory Respiratory exam: Present: CTAB. Absent: accessory muscle use, rales, rhonchi, wheezes - Cardiovascular Cardiovascular exam: Present: RRR, +S1, +S2. Absent: diastolic murmur, gallop, rubs, systolic murmur - GI/Abdominal GI/Abdominal exam: Present: normal bowel sounds, soft, no peritoneal signs. Absent: distended, tenderness - Extremities Exam Extremities exam: Present: warm, radial pulses palpable and symmetrical. Absent : calf tenderness, cyanotic, pedal edema - Neurological Exam Neurological exam: Present: CN II-XII intact, oriented X3, no focal deficits. Absent: pronater drift, facial droop, speech deficit - Skin Skin exam: Present: dry, intact
[2017-05-17] MEDS ORDERED: Insulin DETEMIR 100 UNIT/ML X5UNITS SQ SCH (21:00)
[2017-05-18] MEDS ORDERED: levoFLOXacin 750 MG TABLET PO SCH (09:00)
[2017-05-18 19:30] LABS: APTT (LE Anticoag) 38 sec (32-48); Diluted Russell Viper Venom 32 sec (33-44); PT (LE-Anticoag) 11.9 sec (12.0-15.5)
[2017-05-20 08:44] LABS: ANA IgG by ELISA NONE DETECTED (None Detected)
== END 2017-05-17 15:01 | disposition home or self-care (01) | DRG 194 ==
LOC: EMEROO 07:39 → 2NENU 07:39 → 2ANU 14:57
PROVIDERS: ADMIT Internal Medicine; ATTEND Internal Medicine

== ENCOUNTER 2017-05-23 12:44 | Inpatient (IN) ==
--- NOTE | 2017-05-23 13:00 | Emergency Department Note ---
Disposition Clinical Impression: Diabetic ketoacidosis Qualifiers: Diabetes mellitus type: type 1 Diabetes mellitus complication detail: without coma Qualified Code(s): E10.10 - Type 1 diabetes mellitus with ketoacidosis without coma Syncope Qualifiers: Syncope type: unspecified Qualified Code(s): R55 - Syncope and collapse Disposition: Admitted As Inpatient Condition: Fair Referrals: Marcelo Molina CNP [Primary Care Provider] - Forms: ED Satisfaction Letter Time of Disposition: 15:10 General Adult HPI - General Chief complaint: ED Fall Stated complaint: SYNCOPE,CP,HYPERGLYCEMIA Time Seen by Provider: 05/23/17 12:45 Nursing Notes Reviewed: Yes Vital Signs Reviewed: Yes - History of Present Illness HPI Narrative: She has a history of type 1 diabetes and I did review her previous records and recent admission for treatment of pneumonia and presents after she was at a store and had a syncopal episode after she left the store and was sitting in her car. No injuries. Did have preceding lightheadedness. Afterwards she developed a sharp and pleuritic chest pain. Her chest pain is not exertional. It does radiate to the neck. No diaphoresis or dyspnea. Did have some blurred vision. No fever. Does have rhinorrhea and a frothy clear colored sputum cough , no sneezing. No blood in the urine or stool. No pain or swelling of the lower extremities. Does have lower extremity weakness and does feel weak generally but no lateral weakness or numbness of the extremities. No slurred speech or facial droop. She said she does feel confused for the last several days. Her blood sugar was checked prior to arrival which was too high to register. Social history: She did drive here, no smoking or alcohol - Related Data Home Medications Medication Instructions Recorded Confirmed Gabapentin [Neurontin] 1,800 mg PO HS 05/15/17 05/23/17 Gabapentin [Neurontin] 600 mg PO BID 05/15/17 05/23/17 Insulin ASPART [Novolog Flexpen] 10 unit SQ TID 05/15/17 05/23/17 Insulin Glargine [Lantus] 40 unit PO QAM 05/15/17 05/23/17 Previous Rx's Medication Instructions Recorded Aspirin Enteric Coated [Aspirin EC] 81 mg PO DAILY tablet. 05/17/17 Atorvastatin [Lipitor] 20 mg PO HS #30 tablet 05/17/17 Metoprolol [Lopressor] 12.5 mg PO BID #30 tablet 05/17/17 Nitroglycerin 0.4 mg SL Q5MIN PRN #25 tab.subl 05/17/17 levoFLOXacin [Levaquin] 750 mg PO Q24H #7 tablet 05/17/17 Allergies Allergy/AdvReac Type Severity Reaction Status Date / Time metformin AdvReac See Verified 05/15/17 11:17 Comments Review of Systems: As Per HPI Past Medical History - Past Medical History Medical history: Reports: diabetes, fibromyalgia, hyperlipidemia, hypertension Surgical history: Reports: hysterectomy Psychiatric history: Reports: depression - Social History Smoking Status: Never smoker Smokeless Tobacco Status: No Alcohol use: Reports: none Drug use: Reports: none Physical Exam CONSTITUTIONAL: Tired and ill-appearing, well-nourished; A&O X3, in no apparent distress, breathing comfortably HEAD: Normocephalic; atraumatic. EYES: PERRL, EOMI, no scleral icterus NOSE: The nose is normal in appearance without rhinorrhea NECK: Supple without rigidity, no ROSA M RESP: Normal chest excursion with respiration; breath sounds clear and equal bilaterally; no wheezes, rhonchi, or rales CARD: Regular rhythm, without murmurs, rub or gallop ABD: Non-distended; non-tender, soft, without rigidity, rebound or guarding SKIN: Normal for age and race; warm and dry; no apparent lesions, no rash NEUROLOGICAL: Patient is alert and oriented times three. Cranial nerves III- XII are intact. Sensory and motor functions are intact. Strength is 5/5 for flexion and extension in all 4 extremities. Finger to nose testing is equal and normal bilaterally. extremities: Pulses 2+ and equal in all 4 extremities Course Vital Signs Temperature 98.3 F 05/23/17 12:45 Pulse Rate 91 05/23/17 12:45 Respiratory Rate 18 05/23/17 12:45 Blood Pressure 170/90 05/23/17 12:45 O2 Sat by Pulse Oximetry 100 05/23/17 12:45 Temperature 98.3 F 05/23/17 12:45 Pulse Rate 81 05/23/17 14:11 Respiratory Rate 20 05/23/17 14:11 Blood Pressure 164/78 05/23/17 14:11 O2 Sat by Pulse Oximetry 100 05/23/17 12:45 Medical Decision Making - MDM Narrative Medical decision making narrative: IV fluids, labs, CTA of the chest to look for pulmonary embolism with the syncope and pleuritic chest pain after the recent admission. She is mentating well. Is able to give a good history. 1300 I did review the patient's EKG showing normal sinus rhythm with rate of 87. There is some T-wave inversion inferiorly which was present on the previous EKG that I compared it to previous EKG was from 8 days ago. No evidence of arrhythmia. 1302 I did discuss with the community pharmacist who felt the patient could likely blow to the floor depending on a VBG and if the pH was about 7.2 so I did perform the VBG with a pH 7.37 I did speak with Dr. Tapia who accepts the patient for admission to [facility]. and I also did review the CT scan which did not show pulmonary embolism or any evidence of new onset pneumonia so I do not feel that the hyperglycemia is from sepsis. She does have elevated lactate level which is likely from lactic acidosis from her underlying process of diabetic ketoacidosis and the lactate level certainly could be repeated as an inpatient. All the labs were reviewed with both the community pharmacist and the hospitalist and the patient did receive IV fluids, insulin drip and will be admitted. 1509 - Medical Records Medical records reviewed: Yes I reviewed the patient's medical records. - Lab Data Lab results reviewed: Yes I reviewed the patient's lab results. Result diagrams: 05/23/17 13:24 05/23/17 13:24 Lab Results 05/23/17 05/23/17 05/23/17 Range/Units 12:48 12:49 13:24 WBC 5.8 (4.3-11.1) K/mcL RBC 4.78 (3.82-4.97) M/mcL Hgb 14.0 D (11.5-15.4) g/dL Hct 44.2 (35.3-44.9) % MCV 92.5 (83.0-100.0) fL MCH 29.3 (28.0-33.3) pg MCHC 31.7 (31.6-35.5) g/dL RDW 13.7 (11.5-14.5) % Plt Count 163 (140-400) K/mcL MPV 11.4 (9.4-12.4) fL VBG pH (7.32-7.42) pH Units VBG pCO2 (41-51) mmHg VBG pO2 (25-50) mmHg VBG HCO3 (21-27) mEq/L Sodium (136-145) mEq/L Potassium (3.5-4.5) mEq/L Chloride (98-109) mEq/L Carbon Dioxide (19-29) mEq/L BUN (7-20) mg/dL Creatinine (0.57-1.11) mg/dL Est GFR ( Amer) (> 60) Est GFR (Non-Af Amer) (> 60) BUN/Creatinine Ratio (6-26) Glucose (70-99) mg/dL POC Glucose > 600 H* > 600 H* (58-89) Calculated Osmolality (280-300) Lactic Acid (0.5-2.2) mmol/L Calcium (8.6-10.8) mg/dL Total Bilirubin (0.2-1.2) mg/dL Direct Bilirubin (0.0-0.5) mg/dL Indirect Bilirubin (0.0-1.2) mg/dL AST (5-34) Units/L ALT (0-55) Units/L Alkaline Phosphatase (38-126) Units/L Serum Total Protein (6.0-8.3) g/dL Albumin (3.5-5.0) g/dL Globulin (2.4-3.5) g/dL Albumin/Globulin Ratio (1.1-2.2) 05/23/17 05/23/17 05/23/17 Range/Units 13:24 13:40 14:36 WBC (4.3-11.1) K/mcL RBC (3.82-4.97) M/mcL Hgb (11.5-15.4) g/dL Hct (35.3-44.9) % MCV (83.0-100.0) fL MCH (28.0-33.3) pg MCHC (31.6-35.5) g/dL RDW (11.5-14.5) % Plt Count (140-400) K/mcL MPV (9.4-12.4) fL VBG pH 7.37 (7.32-7.42) pH Units VBG pCO2 41 (41-51) mmHg VBG pO2 96 H (25-50) mmHg VBG HCO3 24 (21-27) mEq/L Sodium 133 L (136-145) mEq/L Potassium 4.4 (3.5-4.5) mEq/L Chloride 102 (98-109) mEq/L Carbon Dioxide 18 L (19-29) mEq/L BUN 13 (7-20) mg/dL Creatinine 1.11 (0.57-1.11) mg/dL Est GFR ( Amer) > 60 (> 60) Est GFR (Non-Af Amer) 54 L (> 60) BUN/Creatinine Ratio 12 (6-26) Glucose 746 H* (70-99) mg/dL POC Glucose (58-89) Calculated Osmolality 312 H (280-300) Lactic Acid 4.7 H* (0.5-2.2) mmol/L Calcium 8.6 (8.6-10.8) mg/dL Total Bilirubin 0.2 (0.2-1.2) mg/dL Direct Bilirubin 0.1 (0.0-0.5) mg/dL Indirect Bilirubin 0.1 (0.0-1.2) mg/dL AST 12 (5-34) Units/L ALT 18 (0-55) Units/L Alkaline Phosphatase 83 (38-126) Units/L Serum Total Protein 6.5 (6.0-8.3) g/dL Albumin 3.0 L (3.5-5.0) g/dL Globulin 3.5 (2.4-3.5) g/dL Albumin/Globulin Ratio 0.9 L (1.1-2.2) 05/23/17 Range/Units 15:01 WBC (4.3-11.1) K/mcL RBC (3.82-4.97) M/mcL Hgb (11.5-15.4) g/dL Hct (35.3-44.9) % MCV (83.0-100.0) fL MCH (28.0-33.3) pg MCHC (31.6-35.5) g/dL RDW (11.5-14.5) % Plt Count (140-400) K/mcL MPV (9.4-12.4) fL VBG pH (7.32-7.42) pH Units VBG pCO2 (41-51) mmHg VBG pO2 (25-50) mmHg VBG HCO3 (21-27) mEq/L Sodium (136-145) mEq/L Potassium (3.5-4.5) mEq/L Chloride (98-109) mEq/L Carbon Dioxide (19-29) mEq/L BUN (7-20) mg/dL Creatinine (0.57-1.11) mg/dL Est GFR ( Amer) (> 60) Est GFR (Non-Af Amer) (> 60) BUN/Creatinine Ratio (6-26) Glucose (70-99) mg/dL POC Glucose 590 H* (58-89) Calculated Osmolality (280-300) Lactic Acid (0.5-2.2) mmol/L Calcium (8.6-10.8) mg/dL Total Bilirubin (0.2-1.2) mg/dL Direct Bilirubin (0.0-0.5) mg/dL Indirect Bilirubin (0.0-1.2) mg/dL AST (5-34) Units/L ALT (0-55) Units/L Alkaline Phosphatase (38-126) Units/L Serum Total Protein (6.0-8.3) g/dL Albumin (3.5-5.0) g/dL Globulin (2.4-3.5) g/dL Albumin/Globulin Ratio (1.1-2.2) - Radiology Data Radiology results reviewed: Yes I reviewed the patient's radiology results. Critical Care Time Critical Care Time: Yes Total Critical Care Time: 30 Attestation: 30 minutes of critical care time spent with the patient who came in with significant weakness post-syncopal episode, blood sugar above 700, diabetic ketoacidosis, insulin drip, cardiac monitoring and EKG and multiple consultations 1511
[2017-05-23] MEDS: 0.9 % Sodium Chloride 1,000 ML IVC SCH ×6 (13:04→18:22)
[2017-05-23 13:33] LABS: Hematocrit 44.2 % (35.3-44.9); Mean Corpuscular HGB Conc 31.7 g/dL (31.6-35.5); Mean Corpuscular Hemoglobin 29.3 pg (28.0-33.3); Mean Corpuscular Volume 92.5 fL (83.0-100.0); Mean Platelet Volume 11.4 fL (9.4-12.4); Platelet Count 163 K/mcL (140-400); Red Blood Count 4.78 M/mcL (3.82-4.97); Red Cell Distribution Width 13.7 % (11.5-14.5)
[2017-05-23 13:44] LABS: Alanine Aminotransferase 18 Units/L (0-55); Albumin/Globulin Ratio 0.9 (1.1-2.2); Alkaline Phosphatase 83 Units/L (38-126); Aspartate Amino Transferase 12 Units/L (5-34); BUN/Creatinine Ratio 12 (6-26); Bilirubin,Direct 0.1 mg/dL (0.0-0.5); Bilirubin,Indirect 0.1 mg/dL (0.0-1.2); Bilirubin,Total 0.2 mg/dL (0.2-1.2); Blood Urea Nitrogen 13 mg/dL (7-20); Calcium 8.6 mg/dL (8.6-10.8); Carbon Dioxide 18 mEq/L (19-29); Chloride 102 mEq/L (98-109); Globulin 3.5 g/dL (2.4-3.5); Osmolality,Calculated 312 (280-300); Potassium 4.4 mEq/L (3.5-4.5); Sodium 133 mEq/L (136-145); Total Protein 6.5 g/dL (6.0-8.3); eGFR For African Americans > 60 (> 60); eGFR For Non-African Americans 54 (> 60)
[2017-05-23 13:48] LABS: Glucose 746 mg/dL (70-99)
[2017-05-23] MEDS ORDERED: *HR* HYDROmorphone (PF) 1 MG/ML SYRINGE IVP ONE (13:54)
[2017-05-23] MEDS ORDERED: Ondansetron 4 MG/2 ML VIAL IVP ONE (13:54)
[2017-05-23] MEDS ORDERED: Insulin Human Regular 100 UNIT in 0.9 % Sodium Chloride 100 ML IVC SCH ×2 (14:00→19:15)
[2017-05-23] MEDS ORDERED: Insulin Human Regular 150 UNIT in 0.9 % Sodium Chloride 150 ML IVC SCH (14:15)
[2017-05-23 14:41] LABS: VBG HCO3 24 mEq/L (21-27); VBG PCO2 41 mmHg (41-51); VBG PH 7.37 pH Units (7.32-7.42); VBG PO2 96 mmHg (25-50)
[2017-05-23] MEDS ORDERED: *HR* Dextrose 50 % in Water (Syg) 50 ML SYRINGE IVP PRN ×2 (17:33→19:09)
[2017-05-23] MEDS ORDERED: D5% in 0.45% NACL w KCl 20 MEQ/1,000 ML MLS IVC PRN (17:33)
[2017-05-23] MEDS ORDERED: D5% in 0.45% NACL 1,000 ML IVC PRN (17:33)
[2017-05-23] MEDS ORDERED: Nitroglycerin 0.4 MG TAB.SUBL SL PRN (17:40)
[2017-05-23] MEDS ORDERED: Ondansetron 4 MG/2 ML VIAL IVP PRN (17:42)
[2017-05-23] MEDS ORDERED: *HR* HYDROcodone/Acet 5/325 mg TABLET PO PRN (17:42)
[2017-05-23] MEDS ORDERED: Naloxone 0.4 MG/ML INJ IVP PRN (17:42)
[2017-05-23] MEDS ORDERED: 0.45 % Sodium Chloride w/KCl 20 MEQ/1,000 ML MLS IVC SCH (17:45)
[2017-05-23] MEDS ORDERED: levoFLOXacin 750 MG TABLET PO SCH (17:45)
--- NOTE | 2017-05-23 17:58 | Internal Med History&Physical ---
<Jose Eduardo Bradley - Last Filed: 05/23/17 21:59> Date of Encounter: 05/23/17 Time of Encounter: 17:57 Assessment and Plan (1) Type 2 diabetes mellitus with hyperosmolarity without nonketotic hyperglycemic-hyperosmolar coma (N[facility]HC) Current visit: Yes Status: Acute Hyperglycemia, anion gap of 21 initially. Corrected sodium of 141 and potassium is 4.4 start 0.45 saline with 20 of potassium per protocol start insulin drip, with appropriate IV fluid replacement per protocol Electrolytes panel now Electrolyte replacement protocol every 4 hours Nothing by mouth Every hour Accu-Cheks Start subcutaneous insulin once blood glucose stable Continuous telemetry, continuous O2 monitoring (2) Syncope Current visit: Yes Status: Acute Suspected syncopal event this afternoon. Reports that she was shopping and began to feel fatigued. She went to her car to rest and believes she may have passed out. Denies any prior syncopal events, currently hemodynmically stable , no focal neurological deficits Carotid Doppler ultrasound bilateral Orthostatic vital signs Continuous telemetry to monitor for arrhythmic events Qualifiers: Syncope type: unspecified Qualified Code(s): R55 - Syncope and collapse (3) Chest pain Current visit: Yes Status: Acute Continues to endorse nonexertional sharp chest pain exacerbated with respirations. Reports chest pain radiating bilateral neck, no prior cardiac history. Recent stress test 05/24 negative for ischemia, echocardiogram 05/24 mild diastolic dysfunction with an EF of 60%. Will continue further workup due to continued chest pain. Serial troponins Continuous telemetry CTA completed, negative for PE Morphine for chest pain, oxygen when necessary, sublingual nitroglycerin when necessary,ASA already taken this morning Qualifiers: Chest pain type: other chest pain Qualified Code(s): R07.89 - Other chest pain; R07.8 - Other chest pain (4) HTN (hypertension) Current visit: Yes Status: Chronic Stable, continue beta michell Qualifiers: Hypertension type: essential hypertension Qualified Code(s): I10 - Essential (primary) hypertension (5) HLD (hyperlipidemia) Current visit: Yes Status: Chronic Continue statin Discussed lifestyle modification Qualifiers: Hyperlipidemia type: pure hypercholesterolemia Qualified Code(s): E78.00 - Pure hypercholesterolemia, unspecified; E78.0 - Pure hypercholesterolemia (6) Diabetes Current visit: Yes Status: Chronic Stop home sliding scale insulin coverage while on insulin drip. Resume sliding scale coverage when anion gap less than 11. See plan above Qualifiers: Diabetes mellitus type: type 2 Diabetes mellitus complication status: with unspecified complications Diabetes mellitus psychiatric social worker insulin use: with jail use Qualified Code(s): E11.8 - Type 2 diabetes mellitus with unspecified complications; Z79.4 - alarm mechanism adjuster (current) use of insulin; Z79.4 - group home ( current) use of insulin; Z79.4 - group home (current) use of insulin; Z79.4 - group home (current) use of insulin (7) DVT prophylaxis Current visit: Yes Status: Acute Lovenox 40 mg subcutaneous daily Internal Medicine - H&P: HPI Chief complaint: DK, chest pain, syncopal event today Admitted From: Home Plans for Post Hospital Care: Home History of present illness: Ms. Gu is a 42 year old female with a PMH of 10 2 diabetes, fibromyalgia, HLD, HTN, gastroparesis. She was recently admitted and discharged for pneumonia. She presents today for nausea/vomiting, syncope, chest pain and shortness of breath. She reports that nausea and vomiting began yesterday and has continued throughout today. Chest pain is described as nonexertional, experiences a slight increase in SOB. She was out shopping today and began to feel very fatigued when the car. She reports while in the car she became syncopal. Patient states that she had a previously scheduled PCP appointment today. While at PCP appointment she mentioned her symptoms, she was found to be hyperglycemic with an unmeasurably high blood sugar and was sent to emergency Department. While in the emergency department she was found to be in DKA. Past Med Surg Social Fam HX - Past Medical History Medical history: diabetes, fibromyalgia, GERD, hyperlipidemia, hypertension, migraine Psychiatric history: anxiety, depression, prior suicide attempt - Past Surgical History Surgical History: hysterectomy - Social History Smoking Status: Never smoker Smokeless Tobacco Status: No Alcohol use: none Drug use: none - Family History Father Family Member Ethnicity: Non- Living Status: Still Living Mother Family Member Ethnicity: Non- Living Status: Still Living Hx Family Cardiac Disorders: Yes (OR, HTN, HLD) Hx Family Endocrine Disorder: Yes (DM) Brother Family Member Ethnicity: Non- Living Status: Still Living Hx Family Endocrine Disorder: Yes (Cirrhosis) Sister Family Member Ethnicity: Non- Living Status: Still Living Hx Family Cardiac Disorders: Yes (OR, HLD, HTN) Hx Family Endocrine Disorder: Yes (DM) Internal Medicine - H&P: Meds Gabapentin [Neurontin] 1,800 mg PO HS 05/15/17 [History] Gabapentin [Neurontin] 600 mg PO BID 05/15/17 [History] Insulin ASPART [Novolog Flexpen] 10 unit SQ TID 05/15/17 [History] Insulin Glargine [Lantus] 40 unit PO QAM 05/15/17 [History] Aspirin Enteric Coated [Aspirin EC] 81 mg PO DAILY tablet. 05/17/17 [Rx] Atorvastatin [Lipitor] 20 mg PO HS #30 tablet 05/17/17 [Rx] Metoprolol [Lopressor] 12.5 mg PO BID #30 tablet 05/17/17 [Rx] Nitroglycerin 0.4 mg SL Q5MIN PRN #25 tab.subl 05/17/17 [Rx] levoFLOXacin [Levaquin] 750 mg PO Q24H #7 tablet 05/17/17 [Rx] 3 Allergy/AdvReac Type Severity Reaction Status Date / Time metformin AdvReac See Verified 05/15/17 11:17 Comments All Systems PM: A 10-system review of systems was performed and is negative for pertinent findings except as documented above in the HPI. - Constitutional Constitutional: chills, night sweats, weakness, no fatigue, no fever(s), no falls, no weight gain, no weight loss - EENT Nose, mouth and throat: dry mouth, sore throat, no nasal congestion, no nasal discharge, no post-nasal drip, no throat swelling - Cardiovascular Cardiovascular ROS IM: as per HPI, chest pain, dyspnea, lightheadedness, syncope , no claudication, no diaphoresis, no dyspnea on exertion, no edema, no irregular heart rhythm, no orthopnea, no palpitations, no paroxysmal nocturnal dyspnea - Respiratory Respiratory: cough, dyspnea, no hemoptysis, no wheezing, no stridor, no chest congestion, no excessive phlegm production, no pain with cough - Gastrointestinal Gastrointestinal: abdominal pain, nausea, vomiting, no coffee ground emesis, no diarrhea, no hematemesis, no hematochezia, no melena - Genitourinary Genitourinary: no dysuria, no flank pain - Musculoskeletal Musculoskeletal ROS IM: back pain - Integumentary Integumentary IM: no rash, no unusual bruising - Constitutional Vitals: Temp Pulse Resp BP Pulse Ox 98.4 F 89 14 133/86 96 05/23/17 17:21 05/23/17 17:21 05/23/17 17:21 05/23/17 17:21 05/23/17 17:21 General appearance: Present: cooperative, mild distress, A&O X 3, answers questions appropriately - Head Head exam: Present: atraumatic, normocephalic - Neck Neck exam general surgery: Present: supple, trachea midline. Absent: lymphadenopathy - Respiratory Respiratory exam: Present: CTAB. Absent: accessory muscle use, rales, rhonchi, wheezes - Cardiovascular Cardiovascular exam: Present: RRR, +S1, +S2. Absent: diastolic murmur, gallop, rubs, systolic murmur - GI/Abdominal GI/Abdominal exam: Present: normal bowel sounds, soft, tenderness. Absent: distended, firm, guarding, mass, rebound - Extremities Exam Extremities exam: Present: warm, radial pulses palpable and symmetrical. Absent : calf tenderness, cyanotic, pedal edema - Skin Skin exam: Present: dry, intact Internal Med - H&P Results - Labs CBC & Chem 7: 05/23/17 13:24 05/23/17 19:56 - ABG Interpretation Interpretation: ABG interpreted by me Interpretation: normal - EKG Data -: EKG Interpreted by Myself EKG shows normal: sinus rhythm - EKG Data Prior EKG available for review: no When compared to previous EKG: there is no significant change Interpretation IM: normal EKG - Diagnostic Studies CT scan - chest Status: image reviewed by me Additional comments: CT chest reveals no PE or pulmonary abnormalities <Nacho Anderson - Last Filed: 05/23/17 23:00> Date of Encounter: 05/23/17 Assessment and Plan (1) Diabetes mellitus with hyperosmolarity without hyperglycemic hyperosmolar nonketotic coma Current visit: Yes Status: Acute Internal Medicine - H&P: HPI History of present illness: Ms. Gu is a 42 year old female All Systems PM: A 10-system review of systems was performed and is negative for pertinent findings except as documented above in the HPI. - Constitutional Vitals: Temp Pulse Resp BP Pulse Ox 97.8 F 77 16 126/73 98 05/23/17 19:27 05/23/17 19:27 05/23/17 19:27 05/23/17 19:27 05/23/17 19:27 Internal Med - H&P Results - Labs CBC & Chem 7: 05/23/17 13:24 05/23/17 19:56 Labs: BMP 05/23/17 17:57 Sodium 139 Potassium 4.3 Chloride 109 Carbon Dioxide 22 Cardiac Enzymes 05/23/17 Range/Units 17:57 Troponin I 0.00 (0-0.03) ng/mL - Attending Attestation 42 F Seen and evaluated at bedside with LARON Admitted and being managed for Syncope, HHS with lactic acidosis VBG is normal, PH is normal Patient is not in DKA Overall, she is improving Recent negative cardiac work up Agree with cycling troponin, insulin drip, syncope work up Rest of details as in LARON Bradley' documentation
[2017-05-23 18:55] LABS: Potassium 4.3 mEq/L (3.5-4.5)
[2017-05-23] MEDS ORDERED: Insulin Regular, Human 100 UNIT/ML IV PRN (19:09)
[2017-05-23] MEDS: *HR* Promethazine 25 MG/ML VIAL IVP PRN (19:46)
[2017-05-23] MEDS: *HR* Morphine 2 MG/ML SYRINGE IVP PRN (19:47)
[2017-05-23 20:22] LABS: BUN/Creatinine Ratio 18 (6-26); Blood Urea Nitrogen 13 mg/dL (7-20); Calcium 8.6 mg/dL (8.6-10.8); Carbon Dioxide 19 mEq/L (19-29); Chloride 115 mEq/L (98-109); Glucose 102 mg/dL (70-99); Osmolality,Calculated 294 (280-300); Sodium 142 mEq/L (136-145); eGFR For African Americans > 60 (> 60); eGFR For Non-African Americans > 60 (> 60)
[2017-05-23 20:23] LABS: Potassium 5.5 mEq/L (3.5-4.5)
[2017-05-23] MEDS ORDERED: GABAPENTIN 1800 MG PO SCH (21:00)
[2017-05-23] MEDS ORDERED: D5% in Water 1,000 ML IVC PRN (21:01)
[2017-05-23] MEDS: Insulin DETEMIR 100 UNIT/ML X5UNITS SQ ONE ×2 (21:52→21:59)
[2017-05-23] MEDS: Insulin Human Regular 100 UNIT in 0.9 % Sodium Chloride 100 ML IVC SCH (22:45)
[2017-05-24 01:25] LABS: BUN/Creatinine Ratio 17 (6-26); Blood Urea Nitrogen 13 mg/dL (7-20); Calcium 7.9 mg/dL (8.6-10.8); Carbon Dioxide 23 mEq/L (19-29); Chloride 109 mEq/L (98-109); Glucose 233 mg/dL (70-99); Osmolality,Calculated 294 (280-300); Sodium 138 mEq/L (136-145); eGFR For African Americans > 60 (> 60); eGFR For Non-African Americans > 60 (> 60)
[2017-05-24 01:27] LABS: Potassium 4.1 mEq/L (3.5-4.5)
[2017-05-24] MEDS: *HR* Morphine 2 MG/ML SYRINGE IVP PRN ×2 (03:06→08:49)
[2017-05-24 06:08] LABS: Basophils # 0.1 K/mcL (0.0-0.2); Basophils % 0.7 %; Eosinophils # 0.3 K/mcL (0.0-0.6); Eosinophils % 3.7 %; Hematocrit 39.9 % (35.3-44.9); Hemoglobin 13.3 g/dL (11.5-15.4); Immature Granulocytes % 0.4 % (0-4); Lymphocytes # 2.6 K/mcL (0.6-4.6); Lymphocytes % 38.3 %; Mean Corpuscular HGB Conc 33.3 g/dL (31.6-35.5); Mean Corpuscular Hemoglobin 29.4 pg (28.0-33.3); Mean Corpuscular Volume 88.1 fL (83.0-100.0); Mean Platelet Volume 10.8 fL (9.4-12.4); Monocytes # 0.3 K/mcL (0.0-1.3); Monocytes % 4.6 %; Neutrophils # 3.5 K/mcL (1.6-8.9); Platelet Count 182 K/mcL (140-400); Red Blood Count 4.53 M/mcL (3.82-4.97); Red Cell Distribution Width 14.2 % (11.5-14.5); Segmented Neutrophils % 52.3 %
[2017-05-24] MEDS: Gabapentin 300 MG CAPSULE PO SCH ×2 (06:19→16:51)
[2017-05-24 06:20] LABS: BUN/Creatinine Ratio 18 (6-26); Blood Urea Nitrogen 12 mg/dL (7-20); Calcium 7.9 mg/dL (8.6-10.8); Carbon Dioxide 22 mEq/L (19-29); Chloride 111 mEq/L (98-109); Glucose 107 mg/dL (70-99); Osmolality,Calculated 288 (280-300); Potassium 4.2 mEq/L (3.5-4.5); Sodium 139 mEq/L (136-145); eGFR For African Americans > 60 (> 60); eGFR For Non-African Americans > 60 (> 60)
[2017-05-24] MEDS: *HR* Enoxaparin 40 MG/0.4 ML SYRINGE SQ SCH (06:20)
[2017-05-24] MEDS: Aspirin Enteric Coated 81 MG Tablet PO SCH (08:48)
[2017-05-24] MEDS: *HR* Promethazine 25 MG/ML VIAL IVP PRN (08:49)
[2017-05-24] MEDS ORDERED: Insulin DETEMIR 100 UNIT/ML X5UNITS SQ SCH (09:00)
[2017-05-24] MEDS ORDERED: Dextrose Gel 15 GM PO PRN ×2 (09:48)
[2017-05-24] MEDS ORDERED: D5% in Water 1,000 ML IVC PRN (09:48)
[2017-05-24] MEDS ORDERED: *HR* Dextrose 50 % in Water (Syg) 50 ML SYRINGE IVP PRN (09:48)
[2017-05-24] MEDS: Insulin LISPRO 300 UNITS/3 ML VIAL SQ SCH ×4 (10:25→20:52)
[2017-05-24] MEDS: *HR* OxyCODONE/APAP 5/325 TABLET PO PRN ×2 (16:56→23:56)
--- NOTE | 2017-05-24 17:27 | Internal Med Progress Note ---
<Oscar Murphy - Last Filed: 05/24/17 17:41> Date of Encounter: 05/24/17 Time of Encounter: 11:30 - Assessment and plan (1) Type 2 diabetes mellitus with hyperosmolarity without nonketotic hyperglycemic-hyperosmolar coma (N[facility]) Current Visit: Yes Status: Acute Assessment and plan: Gap on admission 21. Fluids and insulin administered until BS < 250, Gap closed, Co2 > 18. Pt was transitioned to q4h accuchecks med dose SSI, no levemir basal after DKA due to allergy (pt reports weakness and nausea) Continue telemetry (2) Chest pain Current Visit: Yes Status: Acute Assessment and plan: Currently denies chest pain, though feels general fatigue, less than day prior. Negative PE workup, x2 troponins WNL Cont on telemetry Qualifiers: Chest pain type: other chest pain Qualified Code(s): R07.89 - Other chest pain; R07.8 - Other chest pain (3) Syncope Current Visit: Yes Status: Acute Assessment and plan: Carotid Doppler WNL Telemetry has no shows arrhythmias throughout hospital course. Qualifiers: Syncope type: unspecified Qualified Code(s): R55 - Syncope and collapse (4) Diabetes Current Visit: Yes Status: Chronic Qualifiers: Diabetes mellitus type: type 2 Diabetes mellitus complication status: with unspecified complications Diabetes mellitus exterminator helper termite insulin use: with exterminator helper termite use Qualified Code(s): E11.8 - Type 2 diabetes mellitus with unspecified complications; Z79.4 - exterminator helper termite (current) use of insulin; Z79.4 - exterminator helper termite ( current) use of insulin; Z79.4 - exterminator helper termite (current) use of insulin; Z79.4 - detention (current) use of insulin (5) HLD (hyperlipidemia) Current Visit: Yes Status: Chronic Assessment and plan: Takes Atorvastatin 20mg, continue. Qualifiers: Hyperlipidemia type: pure hypercholesterolemia Qualified Code(s): E78.00 - Pure hypercholesterolemia, unspecified; E78.0 - Pure hypercholesterolemia (6) HTN (hypertension) Current Visit: Yes Status: Chronic Assessment and plan: Continue Metoprolol 12.5mg BID Normotensive for past 24 hours. Qualifiers: Hypertension type: essential hypertension Qualified Code(s): I10 - Essential (primary) hypertension (7) DVT prophylaxis Current Visit: Yes Status: Acute Assessment and plan: On lovenox 40mg sq daily - Subjective Interval history: PMH: type 2 diabetic, HLD, HTN, recent admission/discharge for PNA Interval: Presented to ED with N/V, suspected syncope, unwitnessed, shortness of breath. ED found her with elevated gap, non-ketotic, with >600 blood sugar. Worked up for HHS, gap closed. Today: Pt complains of abdominal pain but significant improvement. Does not feel ready to go home, but will try tomorrow morning. - Constitutional Vitals: Temp Pulse Resp BP Pulse Ox 98.4 F 74 14 120/74 96 05/24/17 16:46 05/24/17 16:46 05/24/17 16:46 05/24/17 16:46 05/24/17 16:46 General appearance: Present: cooperative, mild distress, A&O X 3, answers questions appropriately - Head Head exam: Present: atraumatic - Neck Neck exam general surgery: Present: full ROM - Respiratory Respiratory exam: Present: CTAB. Absent: respiratory distress - Cardiovascular Cardiovascular exam: Present: RRR, +S1, +S2. Absent: JVD - GI/Abdominal GI/Abdominal exam: Present: tenderness, no peritoneal signs Internal Medicine: Result - Labs CBC & Chem 7: 05/24/17 05:58 05/24/17 05:58 Labs: Short CBC 05/24/17 Range/Units 05:58 WBC 6.7 (4.3-11.1) K/mcL Hgb 13.3 (11.5-15.4) g/dL Hct 39.9 (35.3-44.9) % Plt Count 182 (140-400) K/mcL Neutrophils # 3.5 (1.6-8.9) K/mcL BMP 05/23/17 05/23/17 05/24/17 17:57 19:56 00:24 Sodium 139 142 138 Potassium 4.3 5.5 H D 4.1 D Chloride 109 115 H 109 Carbon Dioxide 22 19 23 BUN 13 13 Creatinine 0.73 0.75 Glucose 102 H 233 H Calcium 8.6 7.9 L 05/24/17 05:58 Sodium 139 Potassium 4.2 Chloride 111 H Carbon Dioxide 22 BUN 12 Creatinine 0.65 Glucose 107 H Calcium 7.9 L Cardiac Enzymes 05/23/17 05/24/1705/24/17 Range/Units 17:57 00:24 05:58 Troponin I 0.00 0.00 0.01 (0-0.03) ng/mL Consult Discharge Plan - Plan Referrals: Hazel Garcia [Advanced Practice Nurse] - 05/28/17 4:30 pm <Marty Spivey - Last Filed: 05/24/17 18:51> Date of Encounter: 05/24/17 - Assessment and plan (1) Diabetes mellitus with hyperosmolarity without hyperglycemic hyperosmolar nonketotic coma Current Visit: Yes Status: Acute Assessment and plan: Transitioned to subqu insulin today. Continue IV fluids. (2) HTN (hypertension) Current Visit: Yes Status: Chronic Qualifiers: Hypertension type: essential hypertension Qualified Code(s): I10 - Essential (primary) hypertension (3) HLD (hyperlipidemia) Current Visit: Yes Status: Chronic Qualifiers: Hyperlipidemia type: pure hypercholesterolemia Qualified Code(s): E78.00 - Pure hypercholesterolemia, unspecified; E78.0 - Pure hypercholesterolemia (4) Fibromyalgia Current Visit: No Status: Chronic (5) Syncope Current Visit: Yes Status: Acute Qualifiers: Syncope type: unspecified Qualified Code(s): R55 - Syncope and collapse - Constitutional Vitals: Temp Pulse Resp BP Pulse Ox 98.4 F 74 14 120/74 96 05/24/17 16:46 05/24/17 16:46 05/24/17 16:46 05/24/17 16:46 05/24/17 16:46 Internal Medicine: Result - Labs CBC & Chem 7: 05/24/17 05:58 05/24/17 05:58 Labs: Short CBC 05/24/17 Range/Units 05:58 WBC 6.7 (4.3-11.1) K/mcL Hgb 13.3 (11.5-15.4) g/dL Hct 39.9 (35.3-44.9) % Plt Count 182 (140-400) K/mcL Neutrophils # 3.5 (1.6-8.9) K/mcL BMP 05/23/17 05/23/17 05/24/17 17:57 19:56 00:24 Sodium 139 142 138 Potassium 4.3 5.5 H D 4.1 D Chloride 109 115 H 109 Carbon Dioxide 22 19 23 BUN 13 13 Creatinine 0.73 0.75 Glucose 102 H 233 H Calcium 8.6 7.9 L 05/24/17 05:58 Sodium 139 Potassium 4.2 Chloride 111 H Carbon Dioxide 22 BUN 12 Creatinine 0.65 Glucose 107 H Calcium 7.9 L Cardiac Enzymes 05/24/17 05/24/17 Range/Units 00:24 05:58 Troponin I 0.00 0.01 (0-0.03) ng/mL - Attending Attestation I examined this patient and my medical decision-making was reviewed with the Resident Physician on 05/24/17. I agree with the documented findings, disposition and treatment plan as described except to the extent set forth below. Ms Gu is currently admitted for HHNK and hyperglycemia. She remains moderate to high risk due to potential for worsening clinical symptoms. Ms Gu feels "like crud." She has no fever or chills. No dyspnea. Stomach achy. Has been transitioned off insulin drip but cannot get her Lantus in. Tolerating diet at this time. Exam Alert. Comfortable Mucus membranes dry Heart reg No wheeze Abd soft - nontender No edema I/P 1. HHNK 2. Hyperglycemia Further diagnoses and plan as above.
--- NOTE | 2017-05-24 17:57 | Electrocardiograph Report ---
[place] [id number] Test Date: 2017-05-23 Pat Name: Gaby Gu Department: 102 Room: 11 Gender: F Associate Engineer: Edvin : [id number] Requested By: Marty Spivey Order Number: [id number] Reading MD: Juvenal Alvarez MD Measurements Intervals [place] Rate: 87 P: 18 NH: 159 QRS: -7 QRSD: 85 T: -5 QT: 380 QTc: 424 Interpretive Statements SINUS RHYTHM Electronically Signed On 05-24-2017 17:56:05 EST by Juvenal Alvarez MD
[2017-05-24] MEDS: Insulin Human Regular 100 UNIT in 0.9 % Sodium Chloride 100 ML IVC SCH (20:53)
[2017-05-25] MEDS: *HR* Morphine 2 MG/ML SYRINGE IVP PRN (00:36)
[2017-05-25] MEDS: Insulin LISPRO 300 UNITS/3 ML VIAL SQ SCH ×3 (00:37→08:34)
[2017-05-25] MEDS: Gabapentin 300 MG CAPSULE PO SCH (06:09)
[2017-05-25] MEDS: *HR* Enoxaparin 40 MG/0.4 ML SYRINGE SQ SCH (06:09)
[2017-05-25 08:12] LABS: BUN/Creatinine Ratio 23 (6-26); Blood Urea Nitrogen 17 mg/dL (7-20); Calcium 8.6 mg/dL (8.6-10.8); Carbon Dioxide 25 mEq/L (19-29); Chloride 109 mEq/L (98-109); Glucose 137 mg/dL (70-99); Osmolality,Calculated 292 (280-300); Sodium 139 mEq/L (136-145); eGFR For African Americans > 60 (> 60); eGFR For Non-African Americans > 60 (> 60)
[2017-05-25] MEDS: Aspirin Enteric Coated 81 MG Tablet PO SCH (08:35)
[2017-05-25] MEDS ORDERED: LANTUS SQ SCH (09:00)
--- NOTE | 2017-05-25 11:07 | Discharge Summary ---
<CecilioNicolás - Last Filed: 05/25/17 18:27> Date of Encounter: 05/25/17 Time of Encounter: 10:30 - Discharge Diagnosis (1) Type 2 diabetes mellitus with hyperosmolarity without nonketotic hyperglycemic-hyperosmolar coma ([facility]) Priority: Primary Status: Acute Comments: Labs have normalized; DC on home meds (2) Chest pain Priority: Secondary Status: Acute Comments: Repeat EKG and troponin negative this morning Qualifiers: Chest pain type: other chest pain Qualified Code(s): R07.89 - Other chest pain; R07.8 - Other chest pain (3) Syncope Priority: Secondary Status: Acute Qualifiers: Syncope type: unspecified Qualified Code(s): R55 - Syncope and collapse (4) Diabetes Priority: Secondary Status: Chronic Qualifiers: Diabetes mellitus type: type 2 Diabetes mellitus complication status: with unspecified complications Diabetes mellitus terminal clerk insulin use: with senior living use Qualified Code(s): E11.8 - Type 2 diabetes mellitus with unspecified complications; Z79.4 - assisted (current) use of insulin; Z79.4 - moth exterminator ( current) use of insulin; Z79.4 - assisted (current) use of insulin; Z79.4 - moth exterminator (current) use of insulin (5) HLD (hyperlipidemia) Priority: Secondary Status: Chronic Qualifiers: Hyperlipidemia type: pure hypercholesterolemia Qualified Code(s): E78.00 - Pure hypercholesterolemia, unspecified; E78.0 - Pure hypercholesterolemia (6) HTN (hypertension) Priority: Secondary Status: Chronic Qualifiers: Hypertension type: essential hypertension Qualified Code(s): I10 - Essential (primary) hypertension - Discharge Medications Prescriptions: Cefdinir [Omnicef] 300 mg PO BID #10 capsule Home Medications: Gabapentin [Neurontin] 1,800 mg PO HS 05/15/17 [History] Gabapentin [Neurontin] 600 mg PO BID 05/15/17 [History] Insulin ASPART [Novolog Flexpen] 10 unit SQ TID 05/15/17 [History] Insulin Glargine [Lantus] 40 unit PO QAM 05/15/17 [History] Aspirin Enteric Coated [Aspirin EC] 81 mg PO DAILY tablet. 05/17/17 [Rx] Atorvastatin [Lipitor] 20 mg PO HS #30 tablet 05/17/17 [Rx] Metoprolol [Lopressor] 12.5 mg PO BID #30 tablet 05/17/17 [Rx] Nitroglycerin 0.4 mg SL Q5MIN PRN #25 tab.subl 05/17/17 [Rx] levoFLOXacin [Levaquin] 750 mg PO Q24H #7 tablet 05/17/17 [Rx] Cefdinir [Omnicef] 300 mg PO BID #10 capsule 05/25/17 [Rx] Allergies/Adverse Reactions: 3 Allergy/AdvReac Type Severity Reaction Status Date / Time metformin AdvReac See Verified 05/15/17 11:17 Comments Procedures/tests Complete & Pending: Procedures Performed prior 72 hours Category Date Time Status ECG 12 lead ECG [ECG] Routine Y 05/23/17 12:54 Completed EKG [ECG 12 lead ECG] [ECG] Routine Y 05/25/17 10:58 Ordered EV carotid duplex imaging BI Routine Y 05/23/17 17:56 Completed Date of admission: 05/23/17 15:16 Primary care physician: Marcelo Molina CNP Consults: 05/23/17 17:57 Consult to Nutrition [CONS] Routine Comment: Consulting Provider: NUTRITION Reason for Dietary Consult: MST Score Consult to Squadron Worker [CONS] Routine Reason for SW Consult: Advanced Directive Discharging clinician: Nicolás Hernandes Anticipated date of discharge: 05/25/17 - Patient Status Disposition: Home, Self-Care Condition: Fair Functional capacity at discharge: independent ambulation Overall status at discharge: patient is progressing back to baseline - Discharge Instructions Instructions: Cefdinir (By mouth), Diabetes Mellitus Type 2 in Adults (DC) Follow Up With: Hazel Garcia [Advanced Practice Nurse] - 05/28/17 4:30 pm Additional Instructions: Please follow up with her primary care physician within the next week please complete your antibiotics as they have been prescribed may use [id number] medications for symptom relief during this time Please emphasize adequate fluid intake return to the emergency department for further evaluation if you have any new or worsening symptoms as we have discussed resume all home medications please adhere to adequate diabetic diet - Diet and Activity Activity: resume usual activities as tolerated Diet: diabetic diet Interval History: Patient continues to fill generally unwell and has subjective fever despite no documented fever overnight. Patient also states has recurrence of retrosternal chest pressure. Troponins trended negative thus far and EKGs also have been negative. We will repeat the studies this a.m. prior to discharge. Patient is anxious to go home. All lab abnormalities associated with acute complication of diabetes have normalized and I feel the patient is a viable candidate for discharge home at this time. Patient will be discharged today on new course of Cefdinir despite having completed previous course of Levaquin as patient continues to have symptoms. Hospital course: Ms. Gu is a 42 year old female who was recently discharged from the hospital for acute community acquired pneumonia; was treated with course of Levaquin which was completed on readmission date. Prior to admission, patient states continued to feel unwell, fatigued, short of air, and had stated single episode of syncope in her car. Patient presented to the emergency department following aforementioned syncopal episode. Patient also stated she had been having some ongoing retrosternal chest pressure had no apparent palliative or provocative factors. In ED, patient was given IV fluids, CTA of the chest was completed and negative, EKG showed some nonspecific changes, troponin was negative, white count was normal, the VBG showed normal pH/CO2, pseudo- hyponatremia, borderline anion gap, normal osmolality and otherwise unremarkable workup. Patient was admitted to step down unit on insulin drip. Labs normalized over the next 24 hours patient was transitioned to subcutaneous insulin. Though patient does continue to feel generally unwell, patient does not have any concerning indicators of unstable illness/sepsis including variant vital signs or abnormalities on exam. Symptoms prior to discharge include same midline chest pressure; did recheck EKG and troponin prior to discharge both of which were negative. Patient eager to go home and was in good and stable condition overall, despite symptomatology; discharged patient on 5 day alternative course of antibiotics as well as with strict return precautions. Will need close follow-up and reassessment by primary care physician on outpatient basis. - Time Spent with Patient Total time spent providing and/or coordinating discharge services: Less than 30 minutes - Constitutional Vitals: Temp Pulse Resp BP Pulse Ox 98.2 F 72 16 137/88 97 05/25/17 07:33 05/25/17 07:33 05/25/17 07:33 05/25/17 07:33 05/25/17 07:33 General appearance: Present: cooperative, mild distress, A&O X 3, answers questions appropriately Exam: CONSTITUTIONAL: Alert and oriented X3, well-nourished, well appearing, in no apparent distress HEAD: Normocephalic; atraumatic. EYES: PERRL, no scleral icterus. NOSE: The nose is normal in appearance without rhinorrhea RESP: Normal chest excursion with respiration; breath sounds clear and equal bilaterally; no wheezes, rhonchi, or rales CARD: Regular rhythm, without murmurs, rub or gallop ABD: Non-distended; non-tender, soft,without rigidity, rebound or guarding SKIN: Normal for age and race; warm and dry; no apparent lesions <Marty Spivey - Last Filed: 05/25/17 18:52> Date of Encounter: 05/25/17 - Discharge Diagnosis (1) Diabetes mellitus with hyperosmolarity without hyperglycemic hyperosmolar nonketotic coma Priority: Primary Status: Acute (2) HTN (hypertension) Status: Chronic Qualifiers: Hypertension type: essential hypertension Qualified Code(s): I10 - Essential (primary) hypertension (3) HLD (hyperlipidemia) Status: Chronic Qualifiers: Hyperlipidemia type: pure hypercholesterolemia Qualified Code(s): E78.00 - Pure hypercholesterolemia, unspecified; E78.0 - Pure hypercholesterolemia (4) Fibromyalgia Priority: Secondary Status: Chronic (5) Syncope Status: Acute Qualifiers: Syncope type: unspecified Qualified Code(s): R55 - Syncope and collapse Procedures/tests Complete & Pending: Procedures Performed prior 72 hours Category Date Time Status ECG 12 lead ECG [ECG] Routine Y 05/23/17 12:54 Completed EKG [ECG 12 lead ECG] [ECG] Routine Y 05/25/17 10:58 Ordered EV carotid duplex imaging BI Routine Y 05/23/17 17:56 Completed Date of admission: 05/23/17 15:16 Primary care physician: Marcelo Molina CNP Consults: 05/23/17 17:57 Consult to Nutrition [CONS] Routine Comment: Consulting Provider: NUTRITION Reason for Dietary Consult: MST Score Consult to Squadron Worker [CONS] Routine Reason for SW Consult: Advanced Directive Hospital course: Ms. Gu is a 42 year old female - Time Spent with Patient Total time spent providing and/or coordinating discharge services: 39min - Constitutional Vitals: Temp Pulse Resp BP Pulse Ox 98.4 F 75 18 117/79 97 05/25/17 11:38 05/25/17 11:38 05/25/17 11:38 05/25/17 11:38 05/25/17 11:38 - Attending Attestation I examined this patient and my medical decision-making was reviewed with the Resident Physician on 05/25/17. I agree with the documented findings, disposition and treatment plan as described except to the extent set forth below. Ms Gu has been admitted for NK. She has improved and blood sugars are better. She is afebrile with stable vitals and ready for discharge home. Exam Alert. Comfortable Heart reg No wheeze Abd soft Plan D/C home today
[2017-05-25 11:40] VITALS: BP 117/79
--- NOTE | 2017-05-26 19:45 | Electrocardiograph Report ---
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
== END 2017-05-25 13:22 | disposition home or self-care (01) | DRG 638 ==
LOC: EMEROO 12:44 → 2NNU 15:16
PROVIDERS: ADMIT Internal Medicine; ATTEND Internal Medicine

== ENCOUNTER 2017-08-17 16:07 | Inpatient (IN) ==
[2017-08-17] MEDS ORDERED: Aspirin 81 MG TAB.CHEW PO ONE (16:14)
--- NOTE | 2017-08-17 16:20 | Emergency Department Note ---
Disposition Clinical Impression: Chest pain Qualifiers: Chest pain type: unspecified Qualified Code(s): R07.9 - Chest pain, unspecified Diabetes Qualifiers: Diabetes mellitus type: type 2 Diabetes mellitus complication status: without complication Diabetes mellitus jail insulin use: with exterminator termite use Qualified Code(s): E11.9 - Type 2 diabetes mellitus without complications Disposition: Admitted As Inpatient Condition: Fair Referrals: Marcelo Molina CNP [Primary Care Provider] - Forms: ED Satisfaction Letter, Work/School Release Time of Disposition: 17:41 General Adult HPI - General Chief complaint: ED General Medical Stated complaint: RADHA,CP,cough Time Seen by Provider: 08/17/17 16:14 Source: patient Mode of arrival: ambulatory Limitations: no limitations Nursing Notes Reviewed: Yes Vital Signs Reviewed: Yes - History of Present Illness HPI Narrative: 42-year-old female who comes in with cough chest pain shortness of breath. Patient states she's been nauseated and vomited. Patient notes multiple risk factors for coronary artery disease. Patient did not get a flu shot this year. Pt Subjective Complaint: Chest pain shortness of breath cough Onset (ago): day(s) Location: chest Radiation: non-radiation Pain Severity: moderate Pain Scale: 9 Quality: burning, aching Consistency: constant Improves with: nothing Associated symptoms: Reports: chest pain, cough - Related Data Home Medications Medication Instructions Recorded Confirmed Gabapentin [Neurontin] 1,800 mg PO HS 05/15/17 05/23/17 Gabapentin [Neurontin] 600 mg PO BID 05/15/17 05/23/17 Insulin ASPART [Novolog Flexpen] 10 unit SQ TID 05/15/17 05/23/17 Insulin Glargine [Lantus] 40 unit PO QAM 05/15/17 05/23/17 Previous Rx's Medication Instructions Recorded Aspirin Enteric Coated [Aspirin EC] 81 mg PO DAILY tablet. 05/17/17 Atorvastatin [Lipitor] 20 mg PO HS #30 tablet 05/17/17 Metoprolol [Lopressor] 12.5 mg PO BID #30 tablet 05/17/17 Nitroglycerin 0.4 mg SL Q5MIN PRN #25 tab.subl 05/17/17 levoFLOXacin [Levaquin] 750 mg PO Q24H #7 tablet 05/17/17 Cefdinir [Omnicef] 300 mg PO BID #10 capsule 05/25/17 Allergies Allergy/AdvReac Type Severity Reaction Status Date / Time metformin AdvReac See Verified 06/19/17 21:12 Comments All systems ED: reviewed and negative except as stated. Constitutional: Denies: fever, chills, weakness, weight change Eyes: Denies: eye pain, eye discharge, vision change ENT ED: Denies: ear pain, throat pain, dental pain, hearing loss, epistaxis, congestion, dysphagia Cardiovascular: Reports: chest pain, palpitations, dyspnea on exertion. Denies : edema, syncope Respiratory: Denies: cough, dyspnea, wheezes, hemoptysis, stridor Gastrointestinal: Denies: abdominal pain, nausea, vomiting, diarrhea, constipation, hematemesis, melena, hematochezia Genitourinary: Denies: dysuria, frequency, hematuria, discharge Musculoskeletal: Denies: back pain, neck pain, arthralgia, myalgia Integumentary: Denies: rash, abrasion, lesions Neurological: Denies: headache, weakness, numbness, paresthesias, confusion, abnormal gait, vertigo Psychiatric: Denies: anxiety, depression, suicidal thoughts, homicidal thoughts , auditory hallucinations, visual hallucinations Endocrine: Denies: fatigue Hematological/Lymphatic: Denies: easy bleeding, easy bruising Allergic/Immunologic: Denies: facial swelling, urticaria Past Medical History - Past Medical History Medical history: Reports: diabetes, fibromyalgia, GERD, hyperlipidemia, hypertension, migraine Surgical history: Reports: hysterectomy Psychiatric history: Reports: anxiety, depression, prior suicide attempt BUSINESS OFFICE DIRECTOR history: Reports: non-contributory - Social History Smoking Status: Never smoker Smokeless Tobacco Status: No Alcohol use: Reports: none Drug use: Reports: none Physical Exam - General Limitations: no limitations General appearance: alert, in no apparent distress - Head Head exam: atraumatic, normocephalic, normal inspection - Eye Eye exam: Present: normal appearance, PERRL, EOMI - ENT ENT exam: normal exam, normal oropharynx, mucous membranes moist - Neck Neck exam: Present: normal inspection, full ROM, trachea midline - Chest Chest inspection: Present: normal inspection, symmetric chest wall rise - Respiratory Respiratory exam: Present: wheezes, accessory muscle use - Cardiovascular Cardiovascular exam: Present: regular rate, normal rhythm, normal heart sounds - Abdominal Exam Abdominal exam: Present: soft, Non-Tender. Absent: tenderness, distention, guarding, rebound, rigidity - Extremities Exam Extremities exam: Present: normal inspection, full ROM. Absent: tenderness, pedal edema - Expanded Lower Extremity Exam Neurovascular/Tendon exam: Absent: motor deficit, sensory deficit, tendon deficit Gait: observed and normal - Back Exam Back exam: Present: normal inspection, full ROM. Absent: tenderness - Neurological Exam Neurological exam: Present: alert, oriented X3 - Psychiatric Psychiatric exam: Present: normal affect, normal mood - Skin Skin exam: Present: warm, dry, intact, normal color Course - Reevaluation(s) Reevaluation #1: 42-year-old diabetic comes in complaining of chest pain shortness of breath. Workup for her chest pain was negative. However her glucose level is 600 range. We will admit her for IV insulin. Time: 17:38 - Consultations Consultation #1: Discussed with Dr. Bhakta, admit. Time: 17:39 Vital Signs Temperature 98.7 F 08/17/17 16:08 Pulse Rate 100 08/17/17 16:08 Respiratory Rate 18 08/17/17 16:08 Blood Pressure 145/85 08/17/17 16:08 O2 Sat by Pulse Oximetry 98 08/17/17 16:08 Temperature 98.7 F 08/17/17 16:08 Pulse Rate 102 08/17/17 16:57 Respiratory Rate 17 08/17/17 16:57 Blood Pressure 118/85 08/17/17 16:57 O2 Sat by Pulse Oximetry 98 08/17/17 16:57 Oxygen Delivery Oxygen Delivery Room Air Medical Decision Making - Lab Data Result diagrams: 08/17/17 16:38 08/17/17 16:38 Lab Results 08/17/17 08/17/17 08/17/17 Range/Units 16:38 16:38 16:38 WBC 8.5 (4.3-11.1) K/mcL RBC 4.84 (3.82-4.97) M/mcL Hgb 14.3 (11.5-15.4) g/dL Hct 41.4 (35.3-44.9) % MCV 85.5 (83.0-100.0) fL MCH 29.5 (28.0-33.3) pg MCHC 34.5 (31.6-35.5) g/dL RDW 13.3 (11.5-14.5) % Plt Count 215 (140-400) K/mcL MPV 10.9 (9.4-12.4) fL Immature Gran % 0.5 (0-4) % Seg Neutrophils % 76.8 % Lymphocytes % 16.8 % Monocytes % 4.0 % Eosinophils % 1.5 % Basophils % 0.4 % Neutrophils # 6.5 (1.6-8.9) K/mcL Lymphocytes # 1.4 (0.6-4.6) K/mcL Monocytes # 0.3 (0.0-1.3) K/mcL Eosinophils # 0.1 (0.0-0.6) K/mcL Basophils # 0.0 (0.0-0.2) K/mcL PT 10.2 (9.4-12.1) Seconds INR 1.0 APTT 29.2 (26.0-36.0) Seconds Sodium (136-145) mEq/L Potassium (3.5-5.1) mEq/L Chloride (98-107) mEq/L Carbon Dioxide (23-29) mEq/L BUN (6-20) mg/dL Creatinine (0.60-1.20) mg/dL Est GFR ( Amer) (> 60) Est GFR (Non-Af Amer) (> 60) BUN/Creatinine Ratio (6-26) Glucose (70-105) mg/dL Calculated Osmolality (280-300) Lactic Acid (0.5-2.2) mmol/L Calcium (8.6-10.3) mg/dL Troponin I (< 0.04) ng/mL B-Natriuretic Peptide 30 (Less than 100) pg/mL Urine Color (Yellow) Urine Clarity (Clear) Urine pH (5.0-8.0) pH Units Ur Specific [place] (1.010-1.025) Urine Protein (Neg-Trace) mg/dL Urine Glucose (UA) (Normal) mg/dL Urine Ketones (Negative) mg/dL Urine Blood (Negative) Urine Nitrite (Negative) Urine Bilirubin (Negative) Urine Urobilinogen (Normal) mg/dL Ur Leukocyte Esterase (Negative) Urine Microscopic RBC (0-3) per hpf Urine Microscopic WBC (0-3) per hpf Ur Squamous Epith Cells (None-Few) per lpf Urine Bacteria (None-Few) per hpf Hyaline Casts (None-Few) per lpf Ur Culture Indicated? (NO) 08/17/17 08/17/17 08/17/17 Range/Units 16:38 16:38 16:38 WBC (4.3-11.1) K/mcL RBC (3.82-4.97) M/mcL Hgb (11.5-15.4) g/dL Hct (35.3-44.9) % MCV (83.0-100.0) fL MCH (28.0-33.3) pg MCHC (31.6-35.5) g/dL RDW (11.5-14.5) % Plt Count (140-400) K/mcL MPV (9.4-12.4) fL Immature Gran % (0-4) % Seg Neutrophils % % Lymphocytes % % Monocytes % % Eosinophils % % Basophils % % Neutrophils # (1.6-8.9) K/mcL Lymphocytes # (0.6-4.6) K/mcL Monocytes # (0.0-1.3) K/mcL Eosinophils # (0.0-0.6) K/mcL Basophils # (0.0-0.2) K/mcL PT (9.4-12.1) Seconds INR APTT (26.0-36.0) Seconds Sodium 131 L (136-145) mEq/L Potassium 4.4 (3.5-5.1) mEq/L Chloride 100 (98-107) mEq/L Carbon Dioxide 23 (23-29) mEq/L BUN 19 (6-20) mg/dL Creatinine 0.86 (0.60-1.20) mg/dL Est GFR ( Amer) > 60 (> 60) Est GFR (Non-Af Amer) > 60 (> 60) BUN/Creatinine Ratio 22 (6-26) Glucose 657 H* (70-105) mg/dL Calculated Osmolality 305 H (280-300) Lactic Acid 2.0 (0.5-2.2) mmol/L Calcium 8.8 (8.6-10.3) mg/dL Troponin I < 0.03 (< 0.04) ng/mL B-Natriuretic Peptide (Less than 100) pg/mL Urine Color (Yellow) Urine Clarity (Clear) Urine pH (5.0-8.0) pH Units Ur Specific [place] (1.010-1.025) Urine Protein (Neg-Trace) mg/dL Urine Glucose (UA) (Normal) mg/dL Urine Ketones (Negative) mg/dL Urine Blood (Negative) Urine Nitrite (Negative) Urine Bilirubin (Negative) Urine Urobilinogen (Normal) mg/dL Ur Leukocyte Esterase (Negative) Urine Microscopic RBC (0-3) per hpf Urine Microscopic WBC (0-3) per hpf Ur Squamous Epith Cells (None-Few) per lpf Urine Bacteria (None-Few) per hpf Hyaline Casts (None-Few) per lpf Ur Culture Indicated? (NO) 08/17/17 Range/Units 17:00 WBC (4.3-11.1) K/mcL RBC (3.82-4.97) M/mcL Hgb (11.5-15.4) g/dL Hct (35.3-44.9) % MCV (83.0-100.0) fL MCH (28.0-33.3) pg MCHC (31.6-35.5) g/dL RDW (11.5-14.5) % Plt Count (140-400) K/mcL MPV (9.4-12.4) fL Immature Gran % (0-4) % Seg Neutrophils % % Lymphocytes % % Monocytes % % Eosinophils % % Basophils % % Neutrophils # (1.6-8.9) K/mcL Lymphocytes # (0.6-4.6) K/mcL Monocytes # (0.0-1.3) K/mcL Eosinophils # (0.0-0.6) K/mcL Basophils # (0.0-0.2) K/mcL PT (9.4-12.1) Seconds INR APTT (26.0-36.0) Seconds Sodium (136-145) mEq/L Potassium (3.5-5.1) mEq/L Chloride (98-107) mEq/L Carbon Dioxide (23-29) mEq/L BUN (6-20) mg/dL Creatinine (0.60-1.20) mg/dL Est GFR ( Amer) (> 60) Est GFR (Non-Af Amer) (> 60) BUN/Creatinine Ratio (6-26) Glucose (70-105) mg/dL Calculated Osmolality (280-300) Lactic Acid (0.5-2.2) mmol/L Calcium (8.6-10.3) mg/dL Troponin I (< 0.04) ng/mL B-Natriuretic Peptide (Less than 100) pg/mL Urine Color Yellow (Yellow) Urine Clarity Clear (Clear) Urine pH 6.0 (5.0-8.0) pH Units Ur Specific [place] > 1.030 H (1.010-1.025) Urine Protein Negative (Neg-Trace) mg/dL Urine Glucose (UA) >=1000 H (Normal) mg/dL Urine Ketones Negative (Negative) mg/dL Urine Blood Small H (Negative) Urine Nitrite Negative (Negative) Urine Bilirubin Negative (Negative) Urine Urobilinogen Normal (Normal) mg/dL Ur Leukocyte Esterase Negative (Negative) Urine Microscopic RBC 3-5 H (0-3) per hpf Urine Microscopic WBC 0-3 (0-3) per hpf Ur Squamous Epith Cells Moderate H (None-Few) per lpf Urine Bacteria None Seen (None-Few) per hpf Hyaline Casts None Seen (None-Few) per lpf Ur Culture Indicated? NO (NO) - EKG Data EKG #1 EKG attestation: Yes I reviewed and interpreted this EKG. EKG shows normal: sinus rhythm Rate: normal Rhythm: NSR [place]/QRS: normal Interpretation: no acute changes
[2017-08-17 16:50] LABS: Basophils % 0.4 %; Eosinophils # 0.1 K/mcL (0.0-0.6); Eosinophils % 1.5 %; Hematocrit 41.4 % (35.3-44.9); Hemoglobin 14.3 g/dL (11.5-15.4); Immature Granulocytes % 0.5 % (0-4); Lymphocytes # 1.4 K/mcL (0.6-4.6); Lymphocytes % 16.8 %; Mean Corpuscular HGB Conc 34.5 g/dL (31.6-35.5); Mean Corpuscular Hemoglobin 29.5 pg (28.0-33.3); Mean Corpuscular Volume 85.5 fL (83.0-100.0); Mean Platelet Volume 10.9 fL (9.4-12.4); Monocytes # 0.3 K/mcL (0.0-1.3); Neutrophils # 6.5 K/mcL (1.6-8.9); Platelet Count 215 K/mcL (140-400); Red Blood Count 4.84 M/mcL (3.82-4.97); Red Cell Distribution Width 13.3 % (11.5-14.5); Segmented Neutrophils % 76.8 %
[2017-08-17] MEDS: Ipratropium/Albuterol Neb 3 ML IH ONE ×2 (16:50→16:51)
[2017-08-17 16:58] LABS: Prothrombin Time 10.2 Seconds (9.4-12.1)
[2017-08-17 17:00] LABS: Activated Partial Thrombo Time 29.2 Seconds (26.0-36.0)
[2017-08-17 17:12] LABS: BUN/Creatinine Ratio 22 (6-26); Blood Urea Nitrogen 19 mg/dL (6-20); Calcium 8.8 mg/dL (8.6-10.3); Carbon Dioxide 23 mEq/L (23-29); Chloride 100 mEq/L (98-107); Glucose 657 mg/dL (70-105); Osmolality,Calculated 305 (280-300); Potassium 4.4 mEq/L (3.5-5.1); Sodium 131 mEq/L (136-145); eGFR For African Americans > 60 (> 60); eGFR For Non-African Americans > 60 (> 60)
[2017-08-17 17:12] LABS: Bilirubin,Urine Negative (Negative); Blood,Urine Small (Negative); Clarity,Urine Clear (Clear); Color,Urine Yellow (Yellow); Glucose,Urine (UA) >=1000 mg/dL (Normal); Ketones,Urine Negative (Negative); Leukocyte Esterase,Urine Negative (Negative); Nitrite,Urine Negative (Negative); Protein,Urine Negative (Neg-Trace); Specific Gravity,Urine > 1.030 (1.010-1.025); Urobilinogen,Urine Normal (Normal)
[2017-08-17] MEDS ORDERED: Insulin Human Regular 10 UNIT in 0.9 % Sodium Chloride 10 ML IV ONE (17:14)
[2017-08-17] MEDS ORDERED: *HR* Dextrose 50 % in Water (Syg) 50 ML SYRINGE IVP PRN ×2 (17:14→22:29)
[2017-08-17 17:15] LABS: Bacteria,Urine None Seen per hpf (None-Few); Hyaline Casts,Urine None Seen per lpf (None-Few); Squamous Epithelial Cell,Urine Moderate per lpf (None-Few); WBC,Urine 0-3 per hpf (0-3)
[2017-08-17] MEDS ORDERED: Insulin Human Regular 100 UNIT in 0.9 % Sodium Chloride 100 ML IVC SCH (17:15)
[2017-08-17] MEDS ORDERED: Naloxone 0.4 MG/ML INJ IVP PRN (19:52)
--- NOTE | 2017-08-17 20:22 | Internal Med History&Physical ---
<Jose Eduardo Bradley - Last Filed: 08/17/17 20:17> Date of Encounter: 08/17/17 Time of Encounter: 20:17 Assessment and Plan (1) Chest pain of uncertain etiology Current visit: Yes Status: Acute Presents today with Rt sided chest pain, etiology unclear but does not appear to be cardiac. Initial troponin negative, no EKG changes, or ST elevation or depression. She does not appear to be in distress and is hemodynamically stable. I suspect that her chest pain is d/t coughing associated with her URI. She has no prior cardiac history, but she does have metabolic syndrome. -trend troponin -percocet for pain (2) Hyperglycemia due to type 2 diabetes mellitus Current visit: Yes Status: Acute H/o of DM II. She presents today with hyperglycemia. Serum glucose 657, no anion gap acidosis, no ketones, bicarb 23 and BHB 0.24. Appears to be secondary to viral URI and viral gastroenteritis. -Continue insulin gtt -When FSBG less than/equal 200 start sc high sliding scale insulin then discontinue Insulin gtt in 1 hr -IVF 0.9 NS at 100ml/hr -Continue basal insulin at home dose Qualifiers: Diabetes mellitus long-term insulin use: with supervisor intermediates use Qualified Code( s): E11.65 - Type 2 diabetes mellitus with hyperglycemia; Z79.4 - prison ( current) use of insulin; Z79.4 - assistant terminal manager (current) use of insulin; Z79.4 - assistant terminal manager (current) use of insulin; Z79.4 - prison (current) use of insulin (3) URI (upper respiratory infection) Current visit: Yes Status: Suspected URI symptoms including, cough, chest pain worsened by cough, and intermittent shortness of breath. She is currently chest pain free, and in no respiratory distress. She is resting comfortably on room air with an Spo2 of 99% -Rapid influenza -Respiratory infection panel -Duonebs q4h [facility] Qualifiers: URI type: unspecified URI Qualified Code(s): J06.9 - Acute upper respiratory infection, unspecified (4) Viral gastroenteritis Current visit: Yes Status: Acute N/V/D x2-3 days. She is no longer vomiting or having diarrhea but continues to report nausea. -IVF -antiemetics -antipropulsives if her diarrhea returns -ova and parasites (5) DVT prophylaxis Current visit: Yes Status: Acute Heparin 5000 units SC BID Internal Medicine - H&P: HPI Chief complaint: Rt sided CP, dyspnea, palpitations, cough, N/V/D Admitted From: Home Plans for Post Hospital Care: Home History of present illness: Ms. Gu is a 42 year old female with a PMH of diabetes II, fibromyalgia, GERD, hyperlipidemia, hypertension, and migraines. She presents to [facility] today with a 3-day h/o Rt sided non-radiating chest pain described as dull. She is also reporting intermittent shortness of breath, cough, palpitations and N/V/D. She is not currently have N/V/D but she reports having it the last couple of days. She admits to fevers, chills, night sweats, sore throat, cough and nausea. She denies trying any OTC medication for relief. She reports that she is seeking care because her symptoms seem to be getting worse. Her workup revealed hyperglycemia with a serum glucose of 657. Past Med Surg Social Fam HX - Past Medical History Medical history: diabetes, fibromyalgia, GERD, hyperlipidemia, hypertension, migraine Psychiatric history: anxiety, depression, prior suicide attempt - Past Surgical History Surgical History: hysterectomy - Social History Smoking Status: Never smoker Smokeless Tobacco Status: No Alcohol use: none Drug use: none - Family History Father Family Member Ethnicity: Non- Living Status: Still Living Mother Family Member Ethnicity: Non- Living Status: Still Living Hx Family Cardiac Disorders: Yes ([place], HTN, HLD) Hx Family Endocrine Disorder: Yes (DM) Brother Family Member Ethnicity: Non- Living Status: Still Living Hx Family Endocrine Disorder: Yes (Cirrhosis) Sister Family Member Ethnicity: Non- Living Status: Still Living Hx Family Cardiac Disorders: Yes ([place], HLD, HTN) Hx Family Endocrine Disorder: Yes (DM) Internal Medicine - H&P: Meds Gabapentin [Neurontin] 1,800 mg PO HS 05/15/17 [History] Gabapentin [Neurontin] 600 mg PO BID 05/15/17 [History] Insulin ASPART [Novolog Flexpen] 10 unit SQ TID 05/15/17 [History] Insulin Glargine [Lantus] 40 unit PO QAM 05/15/17 [History] Aspirin Enteric Coated [Aspirin EC] 81 mg PO DAILY tablet. 05/17/17 [Rx] Atorvastatin [Lipitor] 20 mg PO HS #30 tablet 05/17/17 [Rx] Metoprolol [Lopressor] 12.5 mg PO BID #30 tablet 05/17/17 [Rx] Nitroglycerin 0.4 mg SL Q5MIN PRN #25 tab.subl 05/17/17 [Rx] levoFLOXacin [Levaquin] 750 mg PO Q24H #7 tablet 05/17/17 [Rx] Cefdinir [Omnicef] 300 mg PO BID #10 capsule 05/25/17 [Rx] 3 Allergy/AdvReac Type Severity Reaction Status Date / Time metformin AdvReac See Verified 06/19/17 21:12 Comments All Systems PM: A 10-system review of systems was performed and is negative for pertinent findings except as documented above in the HPI. - Constitutional Constitutional: as per HPI - EENT Eyes: as per HPI - Cardiovascular Cardiovascular ROS IM: as per HPI - Respiratory Respiratory: as per HPI - Gastrointestinal Gastrointestinal: as per HPI - Genitourinary Genitourinary: no change in urinary stream, no dysuria, no flank pain, no hematuria - Musculoskeletal Musculoskeletal ROS IM: no numbness, no tingling - Integumentary Integumentary IM: no rash, no unusual bruising - Neurological Neurological ROS: no confusion, no convulsions, no focal weakness, no numbness, no tingling, no tremor(s) - Constitutional Vitals: Temp Pulse Resp BP Pulse Ox 98.8 F 108 17 134/79 99 08/17/17 18:22 08/17/17 18:22 08/17/17 18:22 08/17/17 18:22 08/17/17 18:22 General appearance: Present: cooperative, A&O X 3, no acute distress, answers questions appropriately - Head Head exam: Present: atraumatic, normocephalic - Eye Eye exam: Present: PERRL, conjuntiva pink, sclera anicteric Pupils: Present: PERRL - Neck Neck exam general surgery: Present: supple, trachea midline. Absent: lymphadenopathy - Respiratory Respiratory exam: Present: CTAB. Absent: accessory muscle use, rales, rhonchi, wheezes - Cardiovascular Cardiovascular exam: Present: RRR, +S1, +S2. Absent: diastolic murmur, gallop, rubs, systolic murmur - GI/Abdominal GI/Abdominal exam: Present: normal bowel sounds, soft, no peritoneal signs. Absent: distended, tenderness - Extremities Exam Extremities exam: Present: warm, radial pulses palpable and symmetrical. Absent : calf tenderness, cyanotic, pedal edema - Neurological Exam Neurological exam: Present: CN II-XII intact, oriented X3, no focal deficits. Absent: pronater drift, facial droop, speech deficit - Skin Skin exam: Present: dry, intact Internal Med - H&P Results - Labs CBC & Chem 7: 08/17/17 16:38 08/17/17 16:38 - EKG Data -: EKG Interpreted by Myself EKG shows normal: sinus rhythm - Impressions Impressions Chest X-Ray 08/17/17 16:14 IMPRESSION: No radiographic evidence for acute cardiopulmonary disease process. D/ / Joao Pimentel / Joao Pimentel Interpreting Provider: Joao Pimentel <Debbie Chun - Last Filed: 08/17/17 22:02> Date of Encounter: 08/17/17 Internal Medicine - H&P: HPI History of present illness: Ms. Gu is a 42 year old female All Systems PM: A 10-system review of systems was performed and is negative for pertinent findings except as documented above in the HPI. - Constitutional Vitals: Temp Pulse Resp BP Pulse Ox 98.8 F 108 17 134/79 99 08/17/17 18:22 08/17/17 18:22 08/17/17 18:22 08/17/17 18:22 08/17/17 18:22 Internal Med - H&P Results - Labs CBC & Chem 7: 08/17/17 16:38 08/17/17 16:38 - Attending Attestation I have personally performed a face to face evaluation on this patient. I have reviewed and agree with the care plan. History and Exam by me shows: 42 yo with 1 week hx of cough, sore throat, nasal congestion, burning pain in throat, right side chest pain on inspiration, wheezes noted by partner, diarrhea. Found hyperglycemia Hx of fibromylagia - on pain meds Neuropathy diabetes Hx of histoplasma s/p lung resection 2011 EKG personally reviewed with rate 95, NSR General - AAO x 3 Psych - Appropriate affect/speech. No agitation Eyes - YUSUF. Eye lids intact. No scleral icterus Heart - Sinus. RRR. S1 and S2 present. No added HS/murmurs appreciated. No elevated JVD appreciated. Lung - Adequate air entry b/l, No crackles/wheezes appreciated GI - Soft, non-tender. No hepatosplenomegaly/ascites. BS+ - No CVA/suprapubic tenderness or palpable bladder distension Skin - Intact. No rash/petechiae/ecchymosis. ROS 14 point review of systems reviewed as best as possible given presentation. Pertinent positive or negative as per HPI or otherwise reviewed as negative A/P URI - check RVP Chest pain - likely uri - trend trop - tele Hyperglycemia - ISS for now - transition to insulin when able to take PO at baseline, uses 80 U lantus qAM and TID 10 unit
[2017-08-17] MEDS ORDERED: Loperamide 1 MG/5 ML UDC PO PRN (20:36)
[2017-08-17] MEDS: *HR* OxyCODONE/APAP 5/325 TABLET PO PRN (21:05)
[2017-08-17] MEDS ORDERED: Chloraseptic Spray 177 ML BOTTLE MM PRN (21:52)
[2017-08-17] MEDS: 0.9 % Sodium Chloride 1,000 ML IVC SCH (22:21)
[2017-08-17] MEDS: Fluticasone Propionate Nasal 50 MCG/SPRAY BOTTLE NS SCH (22:22)
[2017-08-17] MEDS ORDERED: Dextrose Gel 15 GM/37.5 ML TUBE PO PRN ×2 (22:29)
[2017-08-17] MEDS ORDERED: D5% in Water 1,000 ML IVC PRN (22:29)
[2017-08-17] MEDS: Ondansetron 4 MG/2 ML VIAL IVP PRN (23:23)
[2017-08-17] MEDS: Ipratropium/Albuterol Neb 3 ML IH SCH (23:53)
[2017-08-18 00:01] LABS: Adenovirus Not Detected (Not Detect); Bordetella Pertussis Not Detected (Not Detect); Chlamydophila pneumoniae Not Detected (Not Detect); Coronavirus 229E Not Detected (Not Detect); Coronavirus HKU1 ***DETECTED*** (Not Detect); Coronavirus NL63 Not Detected (Not Detect); Coronavirus OC43 Not Detected (Not Detect); Human Metapneumovirus Not Detected (Not Detect); Human Rhinovirus/Enterovirus Not Detected (Not Detect); Influenza A Subtype 2009 H1 Not Detected (Not Detect); Influenza A Untypeable Not Detected (Not Detect); Influenza B Not Detected (Not Detect); Mycoplasma pneumoniae Not Detected (Not Detect); Parainfluenza Virus 1 Not Detected (Not Detect); Parainfluenza Virus 2 Not Detected (Not Detect); Parainfluenza Virus 3 Not Detected (Not Detect); Parainfluenza Virus 4 Not Detected (Not Detect); Respiratory Syncytial Virus Not Detected (Not Detect)
[2017-08-18] MEDS ORDERED: *HR* OxyCODONE Immed Rel 5 MG TABLET PO ONE (01:05)
[2017-08-18] MEDS: *HR* OxyCODONE/APAP 5/325 TABLET PO PRN (03:37)
[2017-08-18] MEDS: Ipratropium/Albuterol Neb 3 ML IH SCH ×6 (03:57→23:24)
[2017-08-18] MEDS ORDERED: Insulin LISPRO 300 UNITS/3 ML VIAL SQ STA (05:29)
[2017-08-18] MEDS: *HR* Heparin 5,000 UNIT/ML VIAL SQ SCH ×2 (05:51→17:09)
[2017-08-18 07:35] LABS: Hemoglobin 13.4 g/dL (11.5-15.4); Immature Platelets 3.9 % (1.1-6.1); Mean Corpuscular HGB Conc 34.4 g/dL (31.6-35.5); Mean Corpuscular Hemoglobin 29.5 pg (28.0-33.3); Red Blood Count 4.55 M/mcL (3.82-4.97); Red Cell Distribution Width 13.5 % (11.5-14.5)
[2017-08-18 07:40] LABS: Mean Corpuscular Volume 85.7 fL (83.0-100.0)
[2017-08-18] MEDS: Fluticasone Propionate Nasal 50 MCG/SPRAY BOTTLE NS SCH (08:53)
[2017-08-18] MEDS: Insulin LISPRO 300 UNITS/3 ML VIAL SQ SCH ×4 (08:53→20:44)
[2017-08-18] MEDS: 0.9 % Sodium Chloride 1,000 ML IVC SCH ×2 (08:59→20:43)
[2017-08-18] MEDS ORDERED: Nitroglycerin 0.4 MG TAB.SUBL SL PRN ×2 (11:05→22:31)
[2017-08-18] MEDS ORDERED: Ketorolac 15 MG/ML VIAL IVP ONE (11:52)
[2017-08-18] MEDS: Ondansetron 4 MG/2 ML VIAL IVP PRN (14:11)
--- NOTE | 2017-08-18 15:54 | Internal Med Progress Note ---
Date of Encounter: 08/18/17 Time of Encounter: 13:00 - Assessment and plan (1) URI (upper respiratory infection) Current Visit: Yes Status: Suspected Assessment and plan: Symptomatic with cough, SOB and general malaise. Respiratory PCR positive for coronavirus. Chest CTA without evidence of pneumonia. Continue supportive care , antitussives Qualifiers: URI type: unspecified URI Qualified Code(s): J06.9 - Acute upper respiratory infection, unspecified (2) Chest pain Current Visit: Yes Status: Acute Assessment and plan: presented with chest pain that radiated to back. No known CAD. 05/2017 stress test negative for ischemia. Serial troponins negative, EKG without acute ST changes. Chest CTA negative for pulmonary embolism. Suspect chest pain is secondary to URI/viral illness. Hold on further cardiac testing at this time. Qualifiers: Chest pain type: unspecified Qualified Code(s): R07.9 - Chest pain, unspecified (3) Fibromyalgia Current Visit: No Status: Chronic Assessment and plan: per hx. Cont home oxycodone. OARRS verified 08/18/17. (4) Hyperglycemia due to type 2 diabetes mellitus Current Visit: Yes Status: Acute Assessment and plan: per hx. uncontrolled with blood sugars greater than 600. No DKA, hydroxybutyric acid 24. Possibly secondary to acute illness. Continue home long-acting, and SSI. Monitor blood sugar and titrate PRN. Hgb A1c pending Qualifiers: Diabetes mellitus penitentiary insulin use: with penitentiary use Qualified Code( s): E11.65 - Type 2 diabetes mellitus with hyperglycemia; Z79.4 - [facility] ( current) use of insulin; Z79.4 - manager intermediate (current) use of insulin; Z79.4 - [facility] (current) use of insulin; Z79.4 - [facility] (current) use of insulin (5) DVT prophylaxis Current Visit: Yes Status: Acute Assessment and plan: heparin - Subjective Interval history: Seen and examined at bedside. Patient is new to me, information obtained from chart review and patient report. Patient is very tearful during exam. Says she is having chest pain and she does not feel anyone is anything about it. Describes chest pain as someone sitting on her chest that radiates to her back. Reports shortness of breath as well. Chest pain is worse with cough and deep inspiration. Not reproducible. - Constitutional Vitals: Temp Pulse Resp BP Pulse Ox 97.9 F 94 17 122/73 94 08/18/17 12:25 08/18/17 12:25 08/18/17 12:25 08/18/17 12:25 08/18/17 12:25 General appearance: Present: cooperative, mild distress, A&O X 3, no acute distress, answers questions appropriately - Head Head exam: Present: atraumatic, normocephalic - Eye Eye exam: Present: PERRL, conjuntiva pink, sclera anicteric Pupils: Present: PERRL - Neck Neck exam general surgery: Present: supple, trachea midline. Absent: lymphadenopathy - Respiratory Respiratory exam: Present: CTAB. Absent: accessory muscle use, rales, rhonchi, wheezes - Cardiovascular Cardiovascular exam: Present: RRR, +S1, +S2. Absent: diastolic murmur, gallop, rubs, systolic murmur - GI/Abdominal GI/Abdominal exam: Present: normal bowel sounds, soft, no peritoneal signs. Absent: distended, tenderness - Extremities Exam Extremities exam: Present: warm, radial pulses palpable and symmetrical. Absent : calf tenderness, cyanotic, pedal edema - Neurological Exam Neurological exam: Present: CN II-XII intact, oriented X3, no focal deficits. Absent: pronater drift, facial droop, speech deficit - Skin Skin exam: Present: dry, intact Internal Medicine: Result - Labs CBC & Chem 7: 08/18/17 06:56 08/17/17 16:38 Labs: Short CBC 08/18/17 Range/Units 06:56 WBC 10.0 (4.3-11.1) K/mcL Hgb 13.4 (11.5-15.4) g/dL Hct 39.0 (35.3-44.9) % Plt Count 178 (140-400) K/mcL Cardiac Enzymes 08/17/17 08/18/17 Range/Units 22:51 12:23 Troponin I < 0.03 < 0.03 (< 0.04) ng/mL - ABG Interpretation ABG results: PT/INR, D-dimer PT 10.2 Seconds (9.4-12.1) 08/17/17 16:38 - Impressions Impressions Chest CTA 08/18/17 11:52 IMPRESSION: 1. No evidence for acute pulmonary embolism. 2. Scattered bandlike and streaky right upper and lower lobe parenchymal densities not significantly changed from prior representing scarring/atelectasis probably residual of prior pneumonia. 3. A 6 x 9 mm medial right lung apex nodule. Follow-up CT in 6-12 months. RECOMMENDATIONS: Fleischner Society guidelines for follow-up and management of incidentally detected pulmonary nodules: Single Solid Nodule: Nodule size equals 6-8 mm In a low-risk patient, CT at 6-12 months, then consider CT at 18-24 months. In a high-risk patient, CT at 6-12 months, then CT at 18-24 months. - Low risk patients include individuals with minimal or absent history of smoking and other known risk factors. - High risk patients include individuals with a history or smoking or known risk factors. Radiology 2017 http://pubs.rsna.org/doi/full/10.1148/radiol.[email or web address] D/ / Francis Guadarrama MD / Francis Guadarrama MD Interpreting Provider: Francis Guadarrama MD Consult Discharge Plan - Plan Referrals: Marcelo Molina CNP [Primary Care Provider] -
[2017-08-18] MEDS: Benzonatate 100 MG CAPSULE PO PRN (20:42)
[2017-08-18] MEDS ORDERED: Insulin LISPRO 300 UNITS/3 ML VIAL SQ SCH (21:00)
[2017-08-18] MEDS ORDERED: Insulin DETEMIR 100 UNIT/ML X5UNITS SQ SCH (21:00)
[2017-08-18 22:42] LABS: BUN/Creatinine Ratio 31 (6-26); Blood Urea Nitrogen 24 mg/dL (6-20); Calcium 8.6 mg/dL (8.6-10.3); Carbon Dioxide 22 mEq/L (23-29); Chloride 108 mEq/L (98-107); Glucose 370 mg/dL (70-105); Osmolality,Calculated 301 (280-300); Potassium 5.2 mEq/L (3.5-5.1); Sodium 136 mEq/L (136-145); eGFR For African Americans > 60 (> 60); eGFR For Non-African Americans > 60 (> 60)
[2017-08-18] MEDS: *HR* OxyCODONE Immed Rel 5 MG TABLET PO PRN (23:04)
[2017-08-18] MEDS: Gabapentin 300 MG CAPSULE PO SCH (23:04)
[2017-08-18] MEDS: Acetaminophen 325 MG TABLET PO PRN (23:10)
[2017-08-19] MEDS: GuaiFENesin/Codeine Oral Soln 5 ML UDC PO PRN ×2 (00:14→05:50)
[2017-08-19] MEDS: Ipratropium/Albuterol Neb 3 ML IH SCH ×6 (03:20→23:06)
[2017-08-19] MEDS: Benzonatate 100 MG CAPSULE PO PRN (04:10)
[2017-08-19] MEDS: *HR* Heparin 5,000 UNIT/ML VIAL SQ SCH ×2 (05:50→17:39)
[2017-08-19] MEDS: Acetaminophen 325 MG TABLET PO PRN (05:50)
[2017-08-19 05:53] LABS: Hemoglobin A1C 12.4 %
--- NOTE | 2017-08-19 07:43 | Electrocardiograph Report ---
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
[2017-08-19] MEDS: Fluticasone Propionate Nasal 50 MCG/SPRAY BOTTLE NS SCH (08:44)
[2017-08-19] MEDS: Aspirin Enteric Coated 81 MG Tablet PO SCH (08:44)
[2017-08-19] MEDS: Gabapentin 300 MG CAPSULE PO SCH ×3 (08:44→22:07)
[2017-08-19] MEDS: 0.9 % Sodium Chloride 1,000 ML IVC SCH ×3 (08:44→20:05)
[2017-08-19] MEDS: Ondansetron 4 MG/2 ML VIAL IVP PRN ×2 (08:44→19:53)
[2017-08-19] MEDS: Insulin LISPRO 300 UNITS/3 ML VIAL SQ SCH ×4 (08:45→22:11)
[2017-08-19] MEDS: *HR* OxyCODONE Immed Rel 5 MG TABLET PO PRN (10:44)
[2017-08-19 12:37] LABS: BUN/Creatinine Ratio 23 (6-26); Blood Urea Nitrogen 18 mg/dL (6-20); Carbon Dioxide 26 mEq/L (23-29); Chloride 107 mEq/L (98-107); Sodium 138 mEq/L (136-145)
[2017-08-19 12:38] LABS: Calcium 8.7 mg/dL (8.6-10.3); Glucose 315 mg/dL (70-105); Osmolality,Calculated 300 (280-300); eGFR For African Americans > 60 (> 60); eGFR For Non-African Americans > 60 (> 60)
[2017-08-19] MEDS: Levofloxacin 750 MG/150 ML 750 MG/150 ML BAG IVPB SCH (13:49)
[2017-08-19] MEDS: Ibuprofen 400 MG TABLET PO PRN ×2 (13:53→22:07)
--- NOTE | 2017-08-19 14:08 | Internal Med Progress Note ---
Date of Encounter: 08/19/17 Time of Encounter: 14:05 - Assessment and plan (1) URI (upper respiratory infection) Current Visit: Yes Status: Suspected Assessment and plan: Symptomatic with cough, SOB and general malaise. Respiratory PCR positive for coronavirus. Chest CTA without evidence of pneumonia. Patient reports symptoms present for over 10 days; suspect possible bronchitis as well. Start Levaquin, steroid burst. Continue supportive care, antitussives Qualifiers: URI type: unspecified URI Qualified Code(s): J06.9 - Acute upper respiratory infection, unspecified (2) Chest pain Current Visit: Yes Status: Acute Assessment and plan: presented with chest pain that radiated to back. No known CAD. 05/2017 stress test negative for ischemia. Serial troponins negative, EKG without acute ST changes. Chest CTA negative for pulmonary embolism. Suspect chest pain is secondary to URI/viral illness. Hold on further cardiac testing at this time. Qualifiers: Chest pain type: unspecified Qualified Code(s): R07.9 - Chest pain, unspecified (3) Fibromyalgia Current Visit: No Status: Chronic Assessment and plan: per hx. Cont home oxycodone. OARRS verified 08/18/17. (4) Hyperglycemia due to type 2 diabetes mellitus Current Visit: Yes Status: Acute Assessment and plan: per hx. uncontrolled with blood sugars greater than 600. No DKA, hydroxybutyric acid 24. Possibly secondary to acute illness. Continue home long-acting, and SSI. Monitor blood sugar and titrate PRN. Hgb A1c pending Qualifiers: Diabetes mellitus terminal clerk insulin use: with terminal clerk use Qualified Code( s): E11.65 - Type 2 diabetes mellitus with hyperglycemia; Z79.4 - long term care administrator ( current) use of insulin; Z79.4 - nursing home (current) use of insulin; Z79.4 - nursing home (current) use of insulin; Z79.4 - nursing home (current) use of insulin (5) DVT prophylaxis Current Visit: Yes Status: Acute Assessment and plan: heparin - Subjective Interval history: Seen and examined at bedside; she is still complaining of chest pain and shortness of breath. Chest pain is worsened with deep inspiration. Nothing makes better or worse. Overall does not feel well, complaint Gen. weakness and malaise. Feels she needs another night in the hospital. - Constitutional Vitals: Temp Pulse Resp BP Pulse Ox 99.6 F 97 16 127/82 100 08/19/17 13:54 08/19/17 11:40 08/19/17 11:40 08/19/17 11:40 08/19/17 11:40 General appearance: Present: cooperative, mild distress, A&O X 3, no acute distress, answers questions appropriately - Head Head exam: Present: atraumatic, normocephalic - Eye Eye exam: Present: PERRL, conjuntiva pink, sclera anicteric Pupils: Present: PERRL - Neck Neck exam general surgery: Present: supple, trachea midline. Absent: lymphadenopathy - Respiratory Respiratory exam: Present: CTAB. Absent: accessory muscle use, rales, rhonchi, wheezes - Cardiovascular Cardiovascular exam: Present: RRR, +S1, +S2. Absent: diastolic murmur, gallop, rubs, systolic murmur - GI/Abdominal GI/Abdominal exam: Present: normal bowel sounds, soft, no peritoneal signs. Absent: distended, tenderness - Extremities Exam Extremities exam: Present: warm, radial pulses palpable and symmetrical. Absent : calf tenderness, cyanotic, pedal edema - Neurological Exam Neurological exam: Present: CN II-XII intact, oriented X3, no focal deficits. Absent: pronater drift, facial droop, speech deficit - Skin Skin exam: Present: dry, intact Internal Medicine: Result - Labs CBC & Chem 7: 08/18/17 06:56 08/19/17 09:58 Labs: BMP 08/18/17 08/19/17 22:10 09:58 Sodium 136 138 Potassium 5.2 H 4.0 Chloride 108 H 107 Carbon Dioxide 22 L 26 BUN 24 H 18 Creatinine 0.77 0.80 Glucose 370 H 315 H Calcium 8.6 8.7 - ABG Interpretation ABG results: PT/INR, D-dimer PT 10.2 Seconds (9.4-12.1) 08/17/17 16:38 - Impressions Impressions Chest CTA 08/18/17 11:52 IMPRESSION: 1. No evidence for acute pulmonary embolism. 2. Scattered bandlike and streaky right upper and lower lobe parenchymal densities not significantly changed from prior representing scarring/atelectasis probably residual of prior pneumonia. 3. A 6 x 9 mm medial right lung apex nodule. Follow-up CT in 6-12 months. RECOMMENDATIONS: Fleischner Society guidelines for follow-up and management of incidentally detected pulmonary nodules: Single Solid Nodule: Nodule size equals 6-8 mm In a low-risk patient, CT at 6-12 months, then consider CT at 18-24 months. In a high-risk patient, CT at 6-12 months, then CT at 18-24 months. - Low risk patients include individuals with minimal or absent history of smoking and other known risk factors. - High risk patients include individuals with a history or smoking or known risk factors. Radiology 2017 http://pubs.rsna.org/doi/full/10.1148/radiol.4171491112 D/ / Francis Guadarrama MD / Francis Guadarrama MD Interpreting Provider: Francis Guadarrama MD Consult Discharge Plan - Plan Referrals: Marcelo Molina CNP [Primary Care Provider] -
--- NOTE | 2017-08-19 17:26 | Electrocardiograph Report ---
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
[2017-08-19] MEDS ORDERED: Insulin DETEMIR 100 UNIT/ML X5UNITS SQ SCH (21:00)
[2017-08-19] MEDS ORDERED: Gabapentin 300 MG CAPSULE PO SCH (21:00)
[2017-08-19] MEDS ORDERED: Ketorolac 30 MG/ML VIAL IVP PRN (23:21)
[2017-08-20] MEDS: *HR* OxyCODONE Immed Rel 5 MG TABLET PO PRN ×3 (00:26→21:05)
[2017-08-20] MEDS: Ipratropium/Albuterol Neb 3 ML IH SCH ×6 (04:13→23:45)
[2017-08-20] MEDS: *HR* Heparin 5,000 UNIT/ML VIAL SQ SCH ×2 (05:51→17:26)
[2017-08-20] MEDS: 0.9 % Sodium Chloride 1,000 ML IVC SCH (06:17)
[2017-08-20] MEDS: GuaiFENesin/Codeine Oral Soln 5 ML UDC PO PRN ×2 (06:18→14:37)
[2017-08-20] MEDS: Levofloxacin 750 MG/150 ML 750 MG/150 ML BAG IVPB SCH (08:20)
[2017-08-20] MEDS: Gabapentin 300 MG CAPSULE PO SCH ×3 (08:20→21:05)
[2017-08-20] MEDS: Fluticasone Propionate Nasal 50 MCG/SPRAY BOTTLE NS SCH (08:20)
[2017-08-20] MEDS: Aspirin Enteric Coated 81 MG Tablet PO SCH (08:20)
[2017-08-20] MEDS: Insulin LISPRO 300 UNITS/3 ML VIAL SQ SCH ×6 (08:21→21:12)
[2017-08-20] MEDS: Ibuprofen 400 MG TABLET PO PRN ×2 (11:51→22:24)
[2017-08-20] MEDS ORDERED: Insulin DETEMIR 100 UNIT/ML X5UNITS SQ ONE (15:15)
[2017-08-20] MEDS: Ketorolac 30 MG/ML VIAL IVP PRN (15:22)
--- NOTE | 2017-08-20 15:22 | Internal Med Progress Note ---
Date of Encounter: 08/20/17 Time of Encounter: 11:00 - Assessment and plan (1) Chest pain Current Visit: Yes Status: Acute Assessment and plan: presented with chest pain that radiated to back. No known CAD. 05/2017 stress test negative for ischemia. Serial troponins negative, EKG without acute ST changes. Chest CTA negative for pulmonary embolism. Suspect chest pain is secondary to URI/viral illness. Hold on further cardiac testing at this time. 08/20/17- her chest pain is better but she does feel anxious as mentioned above she has negative serial troponins and most likely etiology is her viral infection. She has tested positive coronavirus. Encourage hydration Qualifiers: Chest pain type: unspecified Qualified Code(s): R07.9 - Chest pain, unspecified (2) Hyperglycemia due to type 2 diabetes mellitus Current Visit: Yes Status: Acute Assessment and plan: per hx. uncontrolled with blood sugars greater than 600. No DKA, hydroxybutyric acid 24. Possibly secondary to acute illness. Continue home long-acting, and SSI. Monitor blood sugar and titrate PRN. Hgb A1c pending 08/20/17-A1C is greater than 12 indicating poor outpatient control. She does state that she is allergic to Levemir can does not want to try it in-house but only claims take symptoms like headaches, nausea reviews of Levemir. I have discussed with pharmacy and we are going to try Levemir again. I will give her low-dose today and titrate to 80 units starting tomorrow adjust insulin sliding scale to high-dose and monitor Accu checks on a daily basis she is high risk for going into DKA given her high sugars Qualifiers: Diabetes mellitus technician terminal and repeater insulin use: with technician terminal and repeater use Qualified Code( s): E11.65 - Type 2 diabetes mellitus with hyperglycemia; Z79.4 - longterm ( current) use of insulin; Z79.4 - longterm (current) use of insulin; Z79.4 - marine oil terminal superintendent (current) use of insulin; Z79.4 - longterm (current) use of insulin (3) URI (upper respiratory infection) Current Visit: Yes Status: Acute Assessment and plan: Symptomatic with cough, SOB and general malaise. Respiratory PCR positive for coronavirus. Chest CTA without evidence of pneumonia. Patient reports symptoms present for over 10 days; suspect possible bronchitis as well. Start Levaquin, steroid burst. Continue supportive care, antitussives 08/20/17 positive for coronavirus. Continue supportive treatment and aggressive hydration. Could stop Levaquin after total of 5 days Qualifiers: URI type: unspecified URI Qualified Code(s): J06.9 - Acute upper respiratory infection, unspecified - Time Spent With Patient Greater than 35 minutes (Greater than 50% time spent in [id number]-[id number] counseling) - Subjective Interval history: Complains that she is not really feeling better she states that she has been having a headache scale of 6/10 since yesterday also claims that she is allergic to Levemir did not have any new fevers overnight - Constitutional Vitals: Temp Pulse Resp BP Pulse Ox 97.5 F L 97 16 102/60 93 08/20/17 15:16 08/20/17 15:16 08/20/17 15:16 08/20/17 15:16 08/20/17 15:16 General appearance: Present: cooperative, mild distress, A&O X 3, no acute distress, answers questions appropriately Exam: General , Alert , oriented, moderate distress anxious HEENT- PERRLA. EOMI CVS- S1S2 N, No Murmurs, Rubs, gallops, No JVD RS- CTA Bilaterally. No rales no Rhonchi heard Abdomen- Soft NT ND, bowel sounds heard across all 4 quadrants Neuro- No Focal deficits appreciated, CN 2-12 intact, Motors- power 5/5 UE, 5/5 LE Bilaterally, Sensations intact Extremeties- no Clubbing/ edema/ wounds seen Internal Medicine: Result - Labs CBC & Chem 7: 08/18/17 06:56 08/19/17 09:58 - ABG Interpretation ABG results: PT/INR, D-dimer PT 10.2 Seconds (9.4-12.1) 08/17/17 16:38 Consult Discharge Plan - Plan Referrals: Marcelo Molina BUSINESS OPERATIONS MANAGER [Primary Care Provider] -
[2017-08-20] MEDS: Ondansetron 4 MG/2 ML VIAL IVP PRN (19:00)
[2017-08-20] MEDS: Melatonin 3 MG TABLET PO PRN (23:17)
[2017-08-21] MEDS: Ipratropium/Albuterol Neb 3 ML IH SCH ×5 (04:11→20:47)
[2017-08-21] MEDS: *HR* Heparin 5,000 UNIT/ML VIAL SQ SCH ×2 (06:43→18:27)
[2017-08-21] MEDS: *HR* OxyCODONE Immed Rel 5 MG TABLET PO PRN ×2 (09:27→18:18)
[2017-08-21] MEDS: Gabapentin 300 MG CAPSULE PO SCH ×3 (09:28→20:58)
[2017-08-21] MEDS: Aspirin Enteric Coated 81 MG Tablet PO SCH (09:28)
[2017-08-21] MEDS: Fluticasone Propionate Nasal 50 MCG/SPRAY BOTTLE NS SCH (09:28)
[2017-08-21] MEDS: Levofloxacin 750 MG/150 ML 750 MG/150 ML BAG IVPB SCH (09:29)
[2017-08-21] MEDS: Insulin LISPRO 300 UNITS/3 ML VIAL SQ SCH ×7 (09:32→20:56)
[2017-08-21] MEDS: Insulin DETEMIR 100 UNIT/ML X5UNITS SQ SCH (09:38)
[2017-08-21] MEDS: Ketorolac 30 MG/ML VIAL IVP PRN (09:39)
[2017-08-21] MEDS: GuaiFENesin/Codeine Oral Soln 5 ML UDC PO PRN ×2 (12:25→18:18)
[2017-08-21] MEDS ORDERED: Acetaminophen/Butalbital/CaffeineTABLET PO ONE (14:23)
[2017-08-21 15:05] LABS: Basophils % 0.3 %; Eosinophils # 0.2 K/mcL (0.0-0.6); Eosinophils % 2.7 %; Hematocrit 36.2 % (35.3-44.9); Immature Granulocytes % 0.8 % (0-4); Lymphocytes # 1.8 K/mcL (0.6-4.6); Lymphocytes % 29.5 %; Mean Corpuscular HGB Conc 32.6 g/dL (31.6-35.5); Mean Corpuscular Hemoglobin 29.8 pg (28.0-33.3); Mean Corpuscular Volume 91.4 fL (83.0-100.0); Mean Platelet Volume 10.5 fL (9.4-12.4); Monocytes # 0.3 K/mcL (0.0-1.3); Monocytes % 4.5 %; Neutrophils # 3.7 K/mcL (1.6-8.9); Platelet Count 166 K/mcL (140-400); Red Blood Count 3.96 M/mcL (3.82-4.97); Red Cell Distribution Width 13.8 % (11.5-14.5); Segmented Neutrophils % 62.2 %
[2017-08-21 15:11] LABS: Hemoglobin 11.8 g/dL (11.5-15.4)
[2017-08-21] MEDS: Loratadine 10 MG TABLET PO SCH (15:11)
[2017-08-21 15:40] LABS: Calcium 8.6 mg/dL (8.6-10.3); Carbon Dioxide 26 mEq/L (23-29); Chloride 108 mEq/L (98-107); Potassium 4.5 mEq/L (3.5-5.1); Sodium 139 mEq/L (136-145)
[2017-08-21 15:45] LABS: BUN/Creatinine Ratio 32 (6-26); Blood Urea Nitrogen 24 mg/dL (6-20); Glucose 177 mg/dL (70-105); Osmolality,Calculated 296 (280-300); eGFR For African Americans > 60 (> 60); eGFR For Non-African Americans > 60 (> 60)
--- NOTE | 2017-08-21 18:05 | Internal Med Progress Note ---
Date of Encounter: 08/21/17 Time of Encounter: 14:00 - Assessment and plan (1) Chest pain Current Visit: Yes Status: Acute Assessment and plan: Chest pain most likely musculoskeletal in nature. Patient has URI symptoms with cough. Pain is reproducible with deep inspiration. Chest x-ray is negative. Chest CTA negative for PE. Patient is aware of 6.9 mm medial right lung nodule and reports that the pain is from this. Patient will need a follow-up with CT in 6-12 months. TTE in May, showed preserved ejection fraction with mild LV DAMON and no significant valvular dysfunction. Stress test at the same time showed a gated EF of 69%, small size, mild intensity, fixed apical inferior defect consistent with artifact and was negative for ischemia or infarct. Patient has no leukocytosis or fever. We will continue to treat chest pain with anti-inflammatory medications. Qualifiers: Chest pain type: unspecified Qualified Code(s): R07.9 - Chest pain, unspecified (2) URI (upper respiratory infection) Current Visit: Yes Status: Acute Assessment and plan: Patient with URI symptoms and is positive for chronic virus. Continue supportive treatment. Patient reports headache for 4 days, also reports sinus tenderness to palpation. I have added Claritin and Flonase as well as patient continuing her Levaquin, and Robitussin. Qualifiers: URI type: unspecified URI Qualified Code(s): J06.9 - Acute upper respiratory infection, unspecified (3) Hyperglycemia due to type 2 diabetes mellitus Current Visit: Yes Status: Acute Assessment and plan: Chronic. Uncontrolled, A1c 12.4%. 08/21/17- Levemir has been titrated to 80 units. Fasting blood glucose this morning was 274 by Accu-Chek, 177 by serum chemistry. adjust insulin sliding scale to high-dose and monitor Accu checks on a daily basis. Continue diabetic diet. she is high risk for going into DKA given her high sugars Qualifiers: Diabetes mellitus superintendent marine oil terminal insulin use: with chcf use Qualified Code( s): E11.65 - Type 2 diabetes mellitus with hyperglycemia; Z79.4 - USP ( current) use of insulin; Z79.4 - technician terminal and repeater (current) use of insulin; Z79.4 - USP (current) use of insulin; Z79.4 - technician terminal and repeater (current) use of insulin (4) Fibromyalgia Current Visit: No Status: Chronic Assessment and plan: per hx. Cont home oxycodone. OARRS verified 08/18/17 BY another INSTITUTIONAL ASSET MANAGER. Patient will continue home medications after discharge. (5) HLD (hyperlipidemia) Current Visit: No Status: Chronic Qualifiers: Hyperlipidemia type: pure hypercholesterolemia Qualified Code(s): E78.00 - Pure hypercholesterolemia, unspecified; E78.0 - Pure hypercholesterolemia (6) HTN (hypertension) Current Visit: Yes Status: Chronic Assessment and plan: Chronic. Well controlled. Continue home medications. Qualifiers: Hypertension type: essential hypertension Qualified Code(s): I10 - Essential (primary) hypertension (7) DVT prophylaxis Current Visit: Yes Status: Acute Assessment and plan: heparin subcutaneous twice a day. - Time Spent With Patient less than 15 minutes - Subjective Interval history: Patient was seen and assessed the bedside at 1400. Patient reports global headache for 4 days but has been basically unrelieved by medications we have given her. She reports that she normally takes Toprol at home for high-grade prevention. Patient reports 01/14 midsternal and right chest pain, she blames this on pulmonary nodules. Patient states that she has been speaking with her case assistant through her waiver program, they are recommending that she go to [facility] after discharge to have her blood sugars monitored. I will check attempted to discuss this with social work tomorrow, added to consultation tonight. Her chest pain is reproducible with deep inspiration. She reports productive cough with green sputum. She denies any abdominal pain, nausea, vomiting, diarrhea. She denies any vision changes and states that she is legally blind. She denies any neck pain or dizziness. - Constitutional Vitals: Temp Pulse Resp BP Pulse Ox 99.3 F 96 15 110/66 97 08/21/17 16:35 08/21/17 16:35 08/21/17 16:35 08/21/17 16:35 08/21/17 16:35 General appearance: Present: cooperative, mild distress, A&O X 3, no acute distress, obese, answers questions appropriately - Head Head exam: Present: atraumatic, normal inspection, normocephalic - Eye Eye exam: Present: normal appearance, conjuntiva pink, sclera anicteric - Neck Neck exam general surgery: Present: normal inspection, supple, trachea midline. Absent: lymphadenopathy, tenderness - Respiratory Respiratory exam: Present: chest wall tenderness, CTAB. Absent: accessory muscle use, rales, respiratory distress, rhonchi, wheezes - Cardiovascular Cardiovascular exam: Present: RRR, +S1, +S2. Absent: diastolic murmur, gallop, rubs, systolic murmur - GI/Abdominal GI/Abdominal exam: Present: normal bowel sounds, soft. Absent: distended, hepatomegaly, tenderness - Extremities Exam Extremities exam: Present: normal capillary refill, normal inspection, warm, radial pulses palpable and symmetrical. Absent: calf tenderness, cyanotic, pedal edema, tenderness - Neurological Exam Neurological exam: Present: alert, oriented X3, no focal deficits. Absent: facial droop, speech deficit - Skin Skin exam: Present: dry, intact, normal color, warm. Absent: rash Internal Medicine: Result - Labs CBC & Chem 7: 08/21/17 14:52 08/21/17 14:52 Labs: Short CBC 08/21/17 Range/Units 14:52 WBC 6.0 (4.3-11.1) K/mcL Hgb 11.8 D (11.5-15.4) g/dL Hct 36.2 (35.3-44.9) % Plt Count 166 (140-400) K/mcL Neutrophils # 3.7 (1.6-8.9) K/mcL BMP 08/21/17 14:52 Sodium 139 Potassium 4.5 Chloride 108 H Carbon Dioxide 26 BUN 24 H Creatinine 0.76 Glucose 177 H Calcium 8.6 - ABG Interpretation ABG results: PT/INR, D-dimer PT 10.2 Seconds (9.4-12.1) 08/17/17 16:38 Consult Discharge Plan - Plan Referrals: Marcelo Molina CNP [Primary Care Provider] -
[2017-08-21] MEDS: Ondansetron 4 MG/2 ML VIAL IVP PRN (21:09)
[2017-08-22] MEDS: Ketorolac 30 MG/ML VIAL IVP PRN ×2 (00:16→20:03)
[2017-08-22] MEDS: Melatonin 3 MG TABLET PO PRN ×2 (00:25→23:26)
[2017-08-22] MEDS: Ipratropium/Albuterol Neb 3 ML IH SCH ×7 (00:27→23:36)
[2017-08-22] MEDS: *HR* OxyCODONE Immed Rel 5 MG TABLET PO PRN ×2 (03:30→17:38)
[2017-08-22] MEDS: *HR* Heparin 5,000 UNIT/ML VIAL SQ SCH ×2 (05:56→17:37)
[2017-08-22 06:48] LABS: Basophils % 0.6 %; Eosinophils # 0.2 K/mcL (0.0-0.6); Eosinophils % 2.9 %; Hematocrit 33.8 % (35.3-44.9); Hemoglobin 11.2 g/dL (11.5-15.4); Immature Granulocytes % 0.9 % (0-4); Lymphocytes % 29.2 %; Mean Corpuscular HGB Conc 33.1 g/dL (31.6-35.5); Mean Corpuscular Hemoglobin 29.8 pg (28.0-33.3); Mean Corpuscular Volume 89.9 fL (83.0-100.0); Mean Platelet Volume 10.5 fL (9.4-12.4); Monocytes # 0.3 K/mcL (0.0-1.3); Monocytes % 4.6 %; Neutrophils # 4.3 K/mcL (1.6-8.9); Platelet Count 181 K/mcL (140-400); Red Blood Count 3.76 M/mcL (3.82-4.97); Red Cell Distribution Width 13.8 % (11.5-14.5); Segmented Neutrophils % 61.8 %
[2017-08-22 07:29] LABS: BUN/Creatinine Ratio 35 (6-26); Blood Urea Nitrogen 29 mg/dL (6-20); Calcium 8.3 mg/dL (8.6-10.3); Carbon Dioxide 25 mEq/L (23-29); Chloride 107 mEq/L (98-107); Glucose 296 mg/dL (70-105); Osmolality,Calculated 299 (280-300); Potassium 4.8 mEq/L (3.5-5.1); Sodium 136 mEq/L (136-145); eGFR For African Americans > 60 (> 60); eGFR For Non-African Americans > 60 (> 60)
[2017-08-22] MEDS: Aspirin Enteric Coated 81 MG Tablet PO SCH (08:34)
[2017-08-22] MEDS: Loratadine 10 MG TABLET PO SCH (08:35)
[2017-08-22] MEDS: Gabapentin 300 MG CAPSULE PO SCH ×3 (08:39→20:03)
[2017-08-22] MEDS: Fluticasone Propionate Nasal 50 MCG/SPRAY BOTTLE NS SCH (08:39)
[2017-08-22] MEDS: Levofloxacin 750 MG/150 ML 750 MG/150 ML BAG IVPB SCH (08:44)
[2017-08-22] MEDS: Insulin LISPRO 300 UNITS/3 ML VIAL SQ SCH ×7 (08:47→21:37)
[2017-08-22] MEDS: Ibuprofen 400 MG TABLET PO PRN (08:53)
[2017-08-22] MEDS: Ondansetron 4 MG/2 ML VIAL IVP PRN (08:54)
[2017-08-22] MEDS: Insulin DETEMIR 100 UNIT/ML X5UNITS SQ SCH ×2 (09:29→20:08)
[2017-08-22] MEDS ORDERED: Insulin DETEMIR 100 UNIT/ML X5UNITS SQ SCH (12:00)
--- NOTE | 2017-08-22 18:32 | Internal Med Progress Note ---
Date of Encounter: 08/22/17 Time of Encounter: 11:30 - Assessment and plan (1) Chest pain Current Visit: Yes Status: Acute Assessment and plan: Patient denies chest pain today. Chest pain most likely musculoskeletal in nature. Patient has URI symptoms with cough. Pain is reproducible with deep inspiration. Chest x-ray is negative. Chest CTA negative for PE. Patient is aware of 6.9 mm medial right lung nodule and reports that the pain is from this. Patient will need a follow-up with CT in 6-12 months. TTE in May, showed preserved ejection fraction with mild LV DAMON and no significant valvular dysfunction. Stress test at the same time showed a gated EF of 69%, small size, mild intensity, fixed apical inferior defect consistent with artifact and was negative for ischemia or infarct. Patient has no leukocytosis or fever. We will continue to treat chest pain with anti-inflammatory medications. Qualifiers: Chest pain type: unspecified Qualified Code(s): R07.9 - Chest pain, unspecified (2) URI (upper respiratory infection) Current Visit: Yes Status: Acute Assessment and plan: Patient with URI symptoms and is positive for chronic virus. Continue supportive treatment. Patient reports headache for 4 days, also reports sinus tenderness to palpation. I have added Claritin and Flonase as well as patient continuing her Levaquin, and Robitussin. Qualifiers: URI type: unspecified URI Qualified Code(s): J06.9 - Acute upper respiratory infection, unspecified (3) Hyperglycemia due to type 2 diabetes mellitus Current Visit: Yes Status: Acute Assessment and plan: Chronic. Uncontrolled, A1c 12.4%. 08/22/17- Levemir has been divided into 40 mg in the morning and 40 mg at bedtime. Fasting blood glucose this morning was 270 by Accu-Chek, 296 by serum chemistry. Accu-Chek's remained around 200 the whole day. adjust insulin sliding scale to high-dose and monitor Accu checks on a daily basis. Continue diabetic diet. I have ensured with the patient and primary nurse that she is eating an ADA diet. Continue to cover with sliding scale insulin and looking discharge tomorrow. Qualifiers: Diabetes mellitus superintendent marine oil terminal insulin use: with alf use Qualified Code( s): E11.65 - Type 2 diabetes mellitus with hyperglycemia; Z79.4 - prison ( current) use of insulin; Z79.4 - buttermaker continuous churn (current) use of insulin; Z79.4 - prison (current) use of insulin; Z79.4 - prison (current) use of insulin (4) Fibromyalgia Current Visit: No Status: Chronic Assessment and plan: Chronic. Cont home oxycodone. OARRS verified 08/18/17 BY another RISK MANAGEMENT DIRECTOR. Patient will continue home medications after discharge. (5) HLD (hyperlipidemia) Current Visit: Yes Status: Chronic Assessment and plan: Chronic. Continue home dose of Lipitor. Qualifiers: Hyperlipidemia type: pure hypercholesterolemia Qualified Code(s): E78.00 - Pure hypercholesterolemia, unspecified; E78.0 - Pure hypercholesterolemia (6) HTN (hypertension) Current Visit: Yes Status: Chronic Assessment and plan: Chronic. Well controlled. Continue home medications. Qualifiers: Hypertension type: essential hypertension Qualified Code(s): I10 - Essential (primary) hypertension (7) DVT prophylaxis Current Visit: Yes Status: Acute Assessment and plan: Heparin SQ BID. I have encouraged ambulation and pt getting up to bedside. - Subjective Interval history: Patient was seen and assessed the bedside at 1130. Pt denies chest pain, n/v/d , abdominal pain, dizziness, headache, or SOB. Pt is aware that we are keeping her another night to change her insulin and try to get better control prior to discharge. - Constitutional Vitals: Temp Pulse Resp BP Pulse Ox 98.0 F 87 18 123/81 99 08/22/17 15:34 08/22/17 15:34 08/22/17 15:34 08/22/17 15:34 08/22/17 15:34 General appearance: Present: cooperative, mild distress, A&O X 3, pleasant, no acute distress, obese, answers questions appropriately - Head Head exam: Present: atraumatic, normal inspection, normocephalic - Eye Eye exam: Present: normal appearance, conjuntiva pink, sclera anicteric - Neck Neck exam general surgery: Present: supple, trachea midline. Absent: lymphadenopathy, tenderness - Respiratory Respiratory exam: Present: decreased breath sounds, CTAB. Absent: accessory muscle use, chest wall tenderness, rales, respiratory distress, rhonchi, wheezes - Cardiovascular Cardiovascular exam: Present: RRR, +S1, +S2. Absent: diastolic murmur, gallop, rubs, systolic murmur - GI/Abdominal GI/Abdominal exam: Present: normal bowel sounds, soft, no peritoneal signs. Absent: distended, hepatomegaly, tenderness - Extremities Exam Extremities exam: Present: normal capillary refill, warm, radial pulses palpable and symmetrical. Absent: calf tenderness, cyanotic, pedal edema, tenderness - Neurological Exam Neurological exam: Present: alert, oriented X3, no focal deficits. Absent: facial droop, speech deficit - Skin Skin exam: Present: dry, intact, normal color, warm. Absent: rash Internal Medicine: Result - Labs CBC & Chem 7: 08/22/17 06:27 08/22/17 06:27 Labs: Short CBC 08/22/17 Range/Units 06:27 WBC 7.0 (4.3-11.1) K/mcL Hgb 11.2 L (11.5-15.4) g/dL Hct 33.8 L (35.3-44.9) % Plt Count 181 (140-400) K/mcL Neutrophils # 4.3 (1.6-8.9) K/mcL BMP 08/22/17 06:27 Sodium 136 Potassium 4.8 Chloride 107 Carbon Dioxide 25 BUN 29 H Creatinine 0.82 Glucose 296 H Calcium 8.3 L - ABG Interpretation ABG results: PT/INR, D-dimer PT 10.2 Seconds (9.4-12.1) 08/17/17 16:38 Consult Discharge Plan - Plan Referrals: Marcelo Molina CNP [Primary Care Provider] -
[2017-08-23] MEDS: *HR* OxyCODONE Immed Rel 5 MG TABLET PO PRN ×3 (02:18→23:46)
[2017-08-23] MEDS: Ipratropium/Albuterol Neb 3 ML IH SCH ×6 (04:11→23:19)
[2017-08-23] MEDS: *HR* Heparin 5,000 UNIT/ML VIAL SQ SCH ×2 (05:29→18:03)
[2017-08-23] MEDS: Fluticasone Propionate Nasal 50 MCG/SPRAY BOTTLE NS SCH (08:50)
[2017-08-23] MEDS: Insulin DETEMIR 100 UNIT/ML X5UNITS SQ SCH (08:50)
[2017-08-23] MEDS: Levofloxacin 750 MG/150 ML 750 MG/150 ML BAG IVPB SCH (08:50)
[2017-08-23] MEDS: Aspirin Enteric Coated 81 MG Tablet PO SCH (08:51)
[2017-08-23] MEDS: Loratadine 10 MG TABLET PO SCH (08:51)
[2017-08-23] MEDS: Insulin LISPRO 300 UNITS/3 ML VIAL SQ SCH ×8 (08:52→23:40)
[2017-08-23] MEDS: Gabapentin 300 MG CAPSULE PO SCH ×3 (08:52→21:14)
[2017-08-23] MEDS: Ondansetron 4 MG/2 ML VIAL IVP PRN ×2 (08:55→17:58)
[2017-08-23] MEDS: Ketorolac 30 MG/ML VIAL IVP PRN ×2 (08:55→17:57)
[2017-08-23] MEDS ORDERED: Insulin DETEMIR 100 UNIT/ML X5UNITS SQ SCH ×2 (09:00→21:00)
[2017-08-23 09:32] LABS: BUN/Creatinine Ratio 36 (6-26); Blood Urea Nitrogen 28 mg/dL (6-20); Calcium 8.6 mg/dL (8.6-10.3); Carbon Dioxide 29 mEq/L (23-29); Chloride 101 mEq/L (98-107); Glucose 393 mg/dL (70-105); Osmolality,Calculated 302 (280-300); Potassium 4.6 mEq/L (3.5-5.1); Sodium 135 mEq/L (136-145); eGFR For African Americans > 60 (> 60); eGFR For Non-African Americans > 60 (> 60)
[2017-08-23] MEDS: Ibuprofen 400 MG TABLET PO PRN ×2 (12:05→21:14)
--- NOTE | 2017-08-23 13:19 | Discharge Summary ---
Date of Encounter: 08/23/17 Time of Encounter: 10:15 - Discharge Diagnosis (1) Chest pain Priority: Primary Status: Acute Comments: Patient denies chest pain today. Chest pain most likely musculoskeletal in nature. Patient has URI symptoms with cough. Pain is reproducible with deep inspiration. Pt has cough and admits that pain is from cough. Chest x-ray is negative. Chest CTA negative for PE. Patient is aware of 6.9 mm medial right lung nodule and will f/u outpatient for monitoring. Patient will need a follow-up with CT in 6-12 months. TTE in May, showed preserved ejection fraction with mild LV DAMON and no significant valvular dysfunction. Stress test at the same time showed a gated EF of 69%, small size, mild intensity, fixed apical inferior defect consistent with artifact and was negative for ischemia or infarct. Patient has no leukocytosis or fever. We will continue to treat chest pain with anti-inflammatory medications. Qualifiers: Chest pain type: unspecified Qualified Code(s): R07.9 - Chest pain, unspecified (2) URI (upper respiratory infection) Priority: Secondary Status: Acute Comments: Continue supportive treatment, Claritin, Flonase, Robitussin for cough, fluids. Qualifiers: URI type: unspecified URI Qualified Code(s): J06.9 - Acute upper respiratory infection, unspecified (3) Hyperglycemia due to type 2 diabetes mellitus Priority: Secondary Status: Acute Comments: Pt with uncontrolled diabetes, A1c 12.4%. Pt admits that she is non-compliant with medications and with diet. She states that due to her vision loss that she is not able to do her grocery shopping and her daughter does her shopping and does not buy ADA diet compliant foods. Pt states that she has been speaking with her waiver CM to be [facility] in [facility] for monitoring of blood sugar and for diabetes education. Pt states that at home she was taking 10units of Novolog with meals and states that she does not understand "how all of this works." Levemir has been divided into 40mg SQ BID and there was little change in blood glucose. She also has high dose corrective coverage SSI that appears to cover well throughout the day. I have increased the at bedtime dose of Levemir to 50 mg. We will continue to monitor. Pt reports that her family brought her pancakes last night and charge nurse reports that she had [employer] and Milk during the night. Pt is non- compliant with diet even here. Recommend that pt go to ECF for monitoring and education. Continue Levemir and SSI Accuchecks changed to q2h for closer monitoring and more opportunity for correction. Qualifiers: Diabetes mellitus mcfp insulin use: with long lines operator use Qualified Code( s): E11.65 - Type 2 diabetes mellitus with hyperglycemia; Z79.4 - care home ( current) use of insulin; Z79.4 - laborer marine terminal (current) use of insulin; Z79.4 - laborer marine terminal (current) use of insulin; Z79.4 - care home (current) use of insulin (4) Fibromyalgia Priority: Secondary Status: Chronic Comments: Chronic. Continue home medications. (5) HLD (hyperlipidemia) Priority: Secondary Status: Chronic Comments: Chronic. Continue home medications. Qualifiers: Hyperlipidemia type: pure hypercholesterolemia Qualified Code(s): E78.00 - Pure hypercholesterolemia, unspecified; E78.0 - Pure hypercholesterolemia (6) HTN (hypertension) Priority: Secondary Status: Chronic Comments: Chronic. Continue home medications. Qualifiers: Hypertension type: essential hypertension Qualified Code(s): I10 - Essential (primary) hypertension (7) DVT prophylaxis Priority: Secondary Status: Acute Comments: Heparin SQ every 12 hours. Pt has been ambulatory. - Discharge Medications Prescriptions: OxyCODONE Immed Rel [Roxicodone 10 MG] 10 mg PO BID PRN 1 Days #2 tablet PRN Reason: Pain Home Medications: Gabapentin [Neurontin] 1,800 mg PO HS 05/15/17 [History] Gabapentin [Neurontin] 600 mg PO BID 05/15/17 [History] Insulin ASPART [Novolog Flexpen] 10 unit SQ TID 05/15/17 [History] Atorvastatin [Lipitor] 20 mg PO HS #30 tablet 05/17/17 [Rx] Metoprolol [Lopressor] 12.5 mg PO BID #30 tablet 05/17/17 [Rx] Nitroglycerin 0.4 mg SL Q5MIN PRN #25 tab.subl 05/17/17 [Rx] Docusate [Colace] 100 mg PO DAILY 08/18/17 [History] Docusate Sodium [Dok] 100 mg PO DAILY 08/19/17 [History] Ibuprofen [Motrin] 800 mg PO Q8HR PRN 08/19/17 [History] Polyethylene Glycol 3350 [MiraLAX Powder Bulk 17.9 Oz] 1 scoop PO DAILY [History] Scopolamine Patch [Transderm-Scop] 1.5 mg TD Q72H PRN 08/19/17 [History] Aspirin Enteric Coated [Aspirin EC] 81 mg PO DAILY tablet. 08/23/17 [Rx] Benzonatate [Tessalon] 200 mg PO TID PRN capsule 08/23/17 [Rx] Chloraseptic E[place]zen [Chloraseptic] 2 spray MM QID PRN bottle 08/23/17 [Rx] Fluticasone Propionate Nasal [Flonase] 50 mcg NS DAILY bottle 08/23/17 [Rx] Insulin DETEMIR [Levemir] 40 unit SQ DAILY #0 [id number] 08/23/17 [Rx] Insulin DETEMIR [Levemir] 50 unit SQ HS #0 [id number] 08/23/17 [Rx] Ipratropium/Albuterol Neb [Duoneb] 3 ml IH [id number] inhsol 08/23/17 [Rx] Loperamide [Imodium] 1 mg PO QID PRN udc 08/23/17 [Rx] Loratadine [Claritin] 10 mg PO DAILY tablet 08/23/17 [Rx] Melatonin 3 mg PO HS PRN tablet 08/23/17 [Rx] OxyCODONE Immed Rel [Roxicodone 10 MG] 10 mg PO BID PRN 1 Days #2 tablet [Rx] Allergies/Adverse Reactions: 3 Allergy/AdvReac Type Severity Reaction Status Date / Time insulin detemir AdvReac Nausea Verified 08/19/17 13:44 metformin AdvReac See Verified 06/19/17 21:12 Comments Date of admission: 08/20/17 18:44 Primary care physician: Marcelo Molina CNP Discharging clinician: Triny Daniels Anticipated date of discharge: 08/23/17 - Patient Status Disposition: Transfer SNF Condition: Fair Functional capacity at discharge: independent ambulation Overall status at discharge: patient is back to baseline - Discharge Instructions Follow Up With: Marcelo Molina CNP [Primary Care Provider] - 08/27/17 10:30 am Additional Instructions: Please follow up with your PCP in the next 7-10 days Return to the ER as needed for any other problems or concerns Take your medications as directed - Diet and Activity Activity: increase activity as tolerated Diet: diabetic diet, low fat, low cholesterol Hospital course: Ms. Gu is a 42 year old female with past medical history significant for diabetes, hypertension, hyperlipidemia, blindness. Patient presented with chest pain, was found to be related to URI symptoms. Patient also found to be noncompliant diabetic. She is requesting to go to prison on discharge. child abuse worker is working on it at this time. I question patient's ability to care for herself and probably manage her diabetes once she is discharged. Patient, if denied by nursing homes, may have to go home on home health. He does live at home with her daughter. Her labs and vitals are stable and within normal limits. Patient is appropriate for discharge. - Time Spent with Patient Total time spent providing and/or coordinating discharge services: - Constitutional Vitals: Temp Pulse Resp BP Pulse Ox 97.8 F 81 17 114/76 95 08/23/17 11:48 08/23/17 11:48 08/23/17 11:48 08/23/17 11:48 08/23/17 11:48 General appearance: Present: cooperative, mild distress, A&O X 3, pleasant, no acute distress, obese, answers questions appropriately - Head Head exam: Present: atraumatic, normal inspection, normocephalic - Eye Eye exam: Present: normal appearance, conjuntiva pink, sclera anicteric - Neck Neck exam general surgery: Present: supple, trachea midline. Absent: lymphadenopathy, tenderness - Respiratory Respiratory exam: Present: CTAB. Absent: accessory muscle use, chest wall tenderness, rales, rhonchi, wheezes - Cardiovascular Cardiovascular exam: Present: RRR, +S1, +S2. Absent: diastolic murmur, gallop, rubs, systolic murmur - GI/Abdominal GI/Abdominal exam: Present: normal bowel sounds, soft, no peritoneal signs. Absent: distended, hepatomegaly, tenderness - Extremities Exam Extremities exam: Present: normal capillary refill, normal inspection, warm, radial pulses palpable and symmetrical. Absent: calf tenderness, cyanotic, pedal edema, tenderness - Neurological Exam Neurological exam: Present: alert, normal gait, oriented X3, no focal deficits, strengths equal and symetr throughout. Absent: facial droop, speech deficit - Skin Skin exam: Present: dry, intact, normal color, warm. Absent: rash
[2017-08-23] MEDS ORDERED: D5% in Water 1,000 ML IVC PRN (13:52)
[2017-08-23] MEDS ORDERED: *HR* Dextrose 50 % in Water (Syg) 50 ML SYRINGE IVP PRN (13:52)
[2017-08-23] MEDS ORDERED: Dextrose Gel 15 GM/37.5 ML TUBE PO PRN ×2 (13:52)
[2017-08-24] MEDS: GuaiFENesin/Codeine Oral Soln 5 ML UDC PO PRN ×2 (02:43→14:51)
[2017-08-24] MEDS: Ipratropium/Albuterol Neb 3 ML IH SCH ×3 (04:29→11:48)
[2017-08-24 04:49] LABS: BUN/Creatinine Ratio 32 (6-26); Blood Urea Nitrogen 25 mg/dL (6-20); Calcium 8.5 mg/dL (8.6-10.3); Carbon Dioxide 30 mEq/L (23-29); Chloride 105 mEq/L (98-107); Glucose 253 mg/dL (70-105); Osmolality,Calculated 303 (280-300); Potassium 4.8 mEq/L (3.5-5.1); Sodium 140 mEq/L (136-145); eGFR For African Americans > 60 (> 60); eGFR For Non-African Americans > 60 (> 60)
[2017-08-24] MEDS: *HR* Heparin 5,000 UNIT/ML VIAL SQ SCH (06:18)
[2017-08-24] MEDS: Ketorolac 30 MG/ML VIAL IVP PRN (06:25)
[2017-08-24] MEDS: Aspirin Enteric Coated 81 MG Tablet PO SCH (08:32)
[2017-08-24] MEDS: Insulin LISPRO 300 UNITS/3 ML VIAL SQ SCH ×4 (08:32→12:50)
[2017-08-24] MEDS: Levofloxacin 750 MG/150 ML 750 MG/150 ML BAG IVPB SCH (08:33)
[2017-08-24] MEDS: Gabapentin 300 MG CAPSULE PO SCH ×2 (08:33→14:51)
[2017-08-24] MEDS: Loratadine 10 MG TABLET PO SCH (08:33)
[2017-08-24] MEDS: Ondansetron 4 MG/2 ML VIAL IVP PRN (08:43)
[2017-08-24] MEDS ORDERED: Insulin DETEMIR 100 UNIT/ML X5UNITS SQ SCH ×3 (09:00→21:00)
--- NOTE | 2017-08-24 10:25 | Physician Discharge Referral ---
ExtendedCare Referral Info Transfer To: [facility] Provider in Charge after Transfer: PCP Institutional Level of Care: Skilled - Diagnosis (1) Chest pain Priority: Primary Status: Acute (2) URI (upper respiratory infection) Priority: Secondary Status: Resolved (3) Hyperglycemia due to type 2 diabetes mellitus Priority: Secondary Status: Chronic (4) Fibromyalgia Priority: Secondary Status: Chronic (5) HLD (hyperlipidemia) Priority: Secondary Status: Chronic (6) HTN (hypertension) Priority: Secondary Status: Chronic (7) DVT prophylaxis Priority: Secondary Status: Acute Prognosis: Good Aware of Diagnosis: Patient Aware of Prognosis: Patient - Transfer Medications Prescriptions: OxyCODONE Immed Rel [Roxicodone 10 MG] 10 mg PO BID PRN 1 Days #2 tablet PRN Reason: Pain Home Medications: Gabapentin [Neurontin] 1,800 mg PO HS 05/15/17 [History] Gabapentin [Neurontin] 600 mg PO BID 05/15/17 [History] Insulin ASPART [Novolog Flexpen] 10 unit SQ TID 05/15/17 [History] Atorvastatin [Lipitor] 20 mg PO HS #30 tablet 05/17/17 [Rx] Metoprolol [Lopressor] 12.5 mg PO BID #30 tablet 05/17/17 [Rx] Nitroglycerin 0.4 mg SL Q5MIN PRN #25 tab.subl 05/17/17 [Rx] Docusate [Colace] 100 mg PO DAILY 08/18/17 [History] Docusate Sodium [Dok] 100 mg PO DAILY 08/19/17 [History] Ibuprofen [Motrin] 800 mg PO Q8HR PRN 08/19/17 [History] Polyethylene Glycol 3350 [MiraLAX Powder Bulk 17.9 Oz] 1 scoop PO DAILY [History] Scopolamine Patch [Transderm-Scop] 1.5 mg TD Q72H PRN 08/19/17 [History] Aspirin Enteric Coated [Aspirin EC] 81 mg PO DAILY tablet. 08/23/17 [Rx] Benzonatate [Tessalon] 200 mg PO TID PRN capsule 08/23/17 [Rx] Chloraseptic Jordan [Chloraseptic] 2 spray MM QID PRN bottle 08/23/17 [Rx] Fluticasone Propionate Nasal [Flonase] 50 mcg NS DAILY bottle 08/23/17 [Rx] Insulin DETEMIR [Levemir] 40 unit SQ DAILY #0 [id number] 08/23/17 [Rx] Insulin DETEMIR [Levemir] 50 unit SQ HS #0 [id number] 08/23/17 [Rx] Ipratropium/Albuterol Neb [Duoneb] 3 ml IH [id number] inhsol 08/23/17 [Rx] Loperamide [Imodium] 1 mg PO QID PRN udc 08/23/17 [Rx] Loratadine [Claritin] 10 mg PO DAILY tablet 08/23/17 [Rx] Melatonin 3 mg PO HS PRN tablet 08/23/17 [Rx] OxyCODONE Immed Rel [Roxicodone 10 MG] 10 mg PO BID PRN 1 Days #2 tablet [Rx] Allergies/Adverse Reactions: 3 Allergy/AdvReac Type Severity Reaction Status Date / Time insulin detemir AdvReac Nausea Verified 08/19/17 13:44 metformin AdvReac See Verified 06/19/17 21:12 Comments - Respiratory Orders Smoking Cessation: Smoking cessation has been advised. For more information, call the [place] Tobacco Quit Line at 9-182-GVQD-NOW. - Lab Orders Lab Orders: 2 Step Mantoux Test per State regulation, CBC, U/A, [place] [address], CXR yearly, Other (include drug levels w/frequency) (A1c every 3 months) - Ancillary Orders May go on JOVANNI w/family/respon libertarian w/meds at nurse discretion PRN, May consult with Dentist, Museum Registrar, Ingot Header PRN - Advance Directives Living Will: No Power of Casting Trucker: No Code Status: Full Code CERTIFICATION: I certify that the transfer of the above named patient to an Extended Care Facility is necessary for the continuing treatment of the diagnosis listed. The above information is true and accurate reflection of patient's current condition. Confidential - Redisclosure prohibited without a patient's written consent.
--- NOTE | 2017-08-24 10:29 | Internal Med Progress Note ---
Date of Encounter: 08/24/17 Time of Encounter: 10:10 - Assessment and plan (1) Chest pain Current Visit: Yes Status: Acute Assessment and plan: Denies. Chest x-ray is negative. Chest CTA negative for PE. Patient is aware of 6.9 mm medial right lung nodule and reports that the pain is from this. Patient will need a follow-up with CT in 6-12 months. TTE in May, showed preserved ejection fraction with mild LV DAMON and no significant valvular dysfunction. Stress test at the same time showed a gated EF of 69%, small size, mild intensity, fixed apical inferior defect consistent with artifact and was negative for ischemia or infarct. Patient has no leukocytosis or fever. Antiiflammatories for pain. Qualifiers: Chest pain type: unspecified Qualified Code(s): R07.9 - Chest pain, unspecified (2) URI (upper respiratory infection) Current Visit: Yes Status: Resolved Assessment and plan: Patient with URI symptoms and is positive for chronic virus. Continue supportive treatment. I have added Claritin and Flonase as well as patient continuing Robitussin. Levaquin stopped. Qualifiers: URI type: unspecified URI Qualified Code(s): J06.9 - Acute upper respiratory infection, unspecified (3) Hyperglycemia due to type 2 diabetes mellitus Current Visit: Yes Status: Chronic Assessment and plan: Chronic. Uncontrolled, A1c 12.4%. 08/24/17- Levemir was changed to 40 mg in the morning and 50 mg at bedtime. Night dose of Levemir wasn't given. Unable to ascertain appropriate blood sugar due to missed dose. Continue current insulin regimen. Continue diabetic diet. I have ensured with the patient and primary nurse that she is eating an ADA diet. No snacks after 1900 Qualifiers: Diabetes mellitus terminal manager insulin use: with terminal manager use Qualified Code( s): E11.65 - Type 2 diabetes mellitus with hyperglycemia; Z79.4 - residential ( current) use of insulin; Z79.4 - residential (current) use of insulin; Z79.4 - residential (current) use of insulin; Z79.4 - residential (current) use of insulin (4) Fibromyalgia Current Visit: No Status: Chronic Assessment and plan: Chronic. Cont home dose of oxycodone. OARRS verified 08/18/17 BY another TELECOMM[employer]ICATION[employer] CABLE JOINTER. Patient will continue home medications after discharge. (5) HLD (hyperlipidemia) Current Visit: Yes Status: Chronic Assessment and plan: Chronic. Continue home dose of Lipitor. Qualifiers: Hyperlipidemia type: pure hypercholesterolemia Qualified Code(s): E78.00 - Pure hypercholesterolemia, unspecified; E78.0 - Pure hypercholesterolemia (6) HTN (hypertension) Current Visit: Yes Status: Chronic Assessment and plan: Chronic. Well controlled. Continue home medications. Qualifiers: Hypertension type: essential hypertension Qualified Code(s): I10 - Essential (primary) hypertension (7) DVT prophylaxis Current Visit: Yes Status: Acute Assessment and plan: Heparin SQ BID. I have encouraged ambulation and pt getting up to bedside. - Time Spent With Patient less than 15 minutes - Subjective Interval history: Patient was seen and assessed the bedside at 1010. Pt denies chest pain, n/v/d , abdominal pain, dizziness, headache, or SOB. Pt is pleasant, awake, alert, and is aware that she has been accepted to [facility]. - Constitutional Vitals: Temp Pulse Resp BP Pulse Ox 98.1 F 87 16 111/73 96 08/24/17 07:07 08/24/17 07:07 08/24/17 07:07 08/24/17 07:07 08/24/17 07:07 General appearance: Present: cooperative, mild distress, A&O X 3, pleasant, no acute distress, obese, answers questions appropriately - Head Head exam: Present: atraumatic, normal inspection, normocephalic - Eye Eye exam: Present: normal appearance, conjuntiva pink, sclera anicteric - Neck Neck exam general surgery: Present: normal inspection, supple, trachea midline. Absent: lymphadenopathy, tenderness - Respiratory Respiratory exam: Present: CTAB, respiratory distress. Absent: accessory muscle use, rales, rhonchi, wheezes - Cardiovascular Cardiovascular exam: Present: RRR, +S1, +S2. Absent: diastolic murmur, gallop, rubs, systolic murmur - GI/Abdominal GI/Abdominal exam: Present: hepatomegaly, normal bowel sounds, soft. Absent: distended, tenderness - Extremities Exam Extremities exam: Present: normal capillary refill, normal inspection, warm, radial pulses palpable and symmetrical. Absent: calf tenderness, cyanotic, pedal edema, tenderness - Neurological Exam Neurological exam: Present: alert, oriented X3, no focal deficits. Absent: facial droop, speech deficit - Skin Skin exam: Present: dry, intact, normal color, warm. Absent: rash Internal Medicine: Result - Labs CBC & Chem 7: 08/22/17 06:27 08/24/17 03:42 Labs: BMP 08/24/17 03:42 Sodium 140 Potassium 4.8 Chloride 105 Carbon Dioxide 30 H BUN 25 H Creatinine 0.79 Glucose 253 H Calcium 8.5 L - ABG Interpretation ABG results: PT/INR, D-dimer PT 10.2 Seconds (9.4-12.1) 08/17/17 16:38 Consult Discharge Plan - Plan Additional Instructions: Please follow up with your PCP in the next 7-10 days Return to the ER as needed for any other problems or concerns Take your medications as directed Referrals: Marcelo Molina CNP [Primary Care Provider] - 08/27/17 10:30 am Prescriptions: OxyCODONE Immed Rel [Roxicodone 10 MG] 10 mg PO BID PRN 1 Days #2 tablet PRN Reason: Pain
[2017-08-24 12:24] VITALS: BP 120/74
[2017-08-24] MEDS: Fluticasone Propionate Nasal 50 MCG/SPRAY BOTTLE NS SCH (12:48)
[2017-08-24] MEDS: *HR* OxyCODONE Immed Rel 5 MG TABLET PO PRN (12:57)
[2017-08-26 07:46] LABS: Ova & Parasite Stain NEGATIVE (Negative)
--- NOTE | 2017-08-28 02:02 | Electrocardiograph Report ---
[place] [id number] Test Date: 2017-08-23 Pat Name: Gaby Gu Department: 113 Room: [facility] Gender: F Certified Nursing Attendant: PETRA : 1975 Requested By: Shaista Villegas Order Number: [id number] Reading MD: Taya Connell Measurements Intervals [place] Rate: 80 P: 18 SD: 154 QRS: 2 QRSD: 86 T: -8 QT: 383 QTc: 420 Interpretive Statements SINUS RHYTHM Electronically Signed On 08-28-2017 2:01:34 EST by Taya Connell
== END 2017-08-24 15:45 | DRG 313 ==
LOC: EMEROO 16:07 → 3BNU 16:07
PROVIDERS: ADMIT Internal Medicine; ATTEND Registered Nurse

== ENCOUNTER 2020-08-02 20:47 | Observation (INO) ==
[2020-08-02] MEDS ORDERED: Isovue-370 500 ML BOTTLE IVP ONE (21:11)
[2020-08-02] MEDS ORDERED: 0.9 % Sodium Chloride 1,000 ML IVC ONE (21:12)
[2020-08-02] MEDS ORDERED: Famotidine 20 MG/2 ML VIAL IVP ONE (21:12)
[2020-08-02] MEDS ORDERED: Ondansetron 4 MG/2 ML VIAL IVP ONE (21:12)
[2020-08-02 21:39] LABS: Basophils # 0.1 K/mcL (0.0-0.2); Basophils % 0.7 %; Eosinophils # 0.3 K/mcL (0.0-0.6); Eosinophils % 2.7 %; Hematocrit 40.4 % (35.3-44.9); Hemoglobin 13.5 g/dL (11.5-15.4); Immature Granulocytes % 0.4 % (0-4); Lymphocytes % 21.4 %; Mean Corpuscular HGB Conc 33.4 g/dL (31.6-35.5); Mean Corpuscular Hemoglobin 29.4 pg (28.0-33.3); Mean Platelet Volume 10.1 fL (9.4-12.4); Monocytes # 0.4 K/mcL (0.0-1.3); Monocytes % 3.8 %; Neutrophils # 6.5 K/mcL (1.6-8.9); Platelet Count 218 K/mcL (140-400); Red Blood Count 4.59 M/mcL (3.82-4.97); Red Cell Distribution Width 12.3 % (11.5-14.5); White Blood Count 9.2 K/mcL (4.3-11.1)
[2020-08-02 21:53] LABS: Bilirubin,Urine Negative (Negative); Blood,Urine Moderate (Negative); Clarity,Urine Clear (Clear); Color,Urine Light-Yellow (Yellow); Glucose,Urine (UA) 500 mg/dL (Normal); Hyaline Casts,Urine Few per lpf (None Seen); Ketones,Urine Negative (Negative); Leukocyte Esterase,Urine Negative (Negative); Mucus,Urine Few per lpf (None-Few); Nitrite,Urine Negative (Negative); Protein,Urine >=600 mg/dL (Neg-Trace); Specific Gravity,Urine 1.022 (1.010-1.025); Squamous Epithelial Cell,Urine Few per hpf (None-Few); Urobilinogen,Urine Normal (Normal); WBC,Urine 0-3 per hpf (0-3)
[2020-08-02] MEDS ORDERED: Morphine Sulfate 2 MG/ML SYRINGE IVP ONE (22:04)
[2020-08-02 22:28] LABS: Alanine Aminotransferase 15 Units/L (7-52); Albumin 3.1 g/dL (3.5-5.7); Albumin/Globulin Ratio 1.1 (1.1-2.2); Alkaline Phosphatase 62 Units/L (34-104); Aspartate Amino Transferase 15 Units/L (13-39); BUN/Creatinine Ratio 21 (6-26); Bilirubin,Indirect 0.3 mg/dL (0.0-1.0); Bilirubin,Total 0.3 mg/dL (0.3-1.0); Blood Urea Nitrogen 17 mg/dL (6-20); Calcium 8.3 mg/dL (8.6-10.3); Carbon Dioxide 24 mEq/L (23-29); Chloride 104 mEq/L (98-107); Globulin 2.7 g/dL (2.4-3.5); Glucose 179 mg/dL (70-105); Lipase 168 Units/L (11-82); Osmolality,Calculated 290 (280-300); Potassium 3.9 mEq/L (3.5-5.1); Sodium 137 mEq/L (136-145); Total Protein 5.8 g/dL (6.4-8.9); Troponin I < 0.03 ng/mL (< 0.04); eGFR For African Americans > 60 (> 60); eGFR For Non-African Americans > 60 (> 60)
[2020-08-03] MEDS ORDERED: Morphine Sulfate 2 MG/ML SYRINGE IVP ONE (00:28)
[2020-08-03 02:12] LABS: Amphetamine Screen,Urine Negative ng/mL (Cutoff=1000); Barbiturate Screen,Urine Negative ng/mL (Cutoff=200); Benzodiazepines Screen,Urine Negative ng/mL (Cutoff=200); Cannabinoid Screen,Urine Negative ng/mL (Cutoff = 50); Cocaine Screen,Urine Negative ng/mL (Cutoff= 300); Opiate Screen,Urine Positive ng/mL (Cutoff=300); Phencyclidine Screen,Urine Negative ng/mL (Cutoff=25)
[2020-08-03 02:23] LABS: Ethanol < 10 mg/dL (Less than 10)
[2020-08-03] MEDS ORDERED: Naloxone 0.4 MG/ML INJ IVP PRN (02:48)
[2020-08-03] MEDS: Ketorolac 15 MG/ML VIAL IVP PRN ×2 (04:09→17:16)
[2020-08-03] MEDS: Ringers Solution, Lactated 1,000 ML IVC SCH ×4 (04:09→20:23)
[2020-08-03] MEDS: Ondansetron ODT 4 MG TAB.RAPDIS SL PRN ×2 (04:09→20:32)
[2020-08-03] MEDS ORDERED: *HR* HYDROmorphone (PF) 1 MG/ML SYRINGE IVP ONE (05:40)
[2020-08-03] MEDS ORDERED: Prochlorperazine 10 MG/2 ML VIAL IVP ONE (05:42)
[2020-08-03 06:04] LABS: Basophils % 0.5 %; Eosinophils # 0.2 K/mcL (0.0-0.6); Eosinophils % 2.8 %; Hematocrit 36.3 % (35.3-44.9); Hemoglobin 12.2 g/dL (11.5-15.4); Immature Granulocytes % 0.3 % (0-4); Lymphocytes # 2.1 K/mcL (0.6-4.6); Lymphocytes % 28.2 %; Mean Corpuscular HGB Conc 33.6 g/dL (31.6-35.5); Mean Corpuscular Hemoglobin 29.8 pg (28.0-33.3); Mean Corpuscular Volume 88.5 fL (83.0-100.0); Mean Platelet Volume 10.1 fL (9.4-12.4); Monocytes # 0.4 K/mcL (0.0-1.3); Neutrophils # 4.7 K/mcL (1.6-8.9); Platelet Count 205 K/mcL (140-400); Red Cell Distribution Width 12.5 % (11.5-14.5); Segmented Neutrophils % 63.2 %; White Blood Count 7.4 K/mcL (4.3-11.1)
[2020-08-03 06:17] LABS: Prothrombin Time 12.1 Seconds (9.4-12.1)
[2020-08-03 06:24] LABS: BUN/Creatinine Ratio 21 (6-26); Blood Urea Nitrogen 14 mg/dL (6-20); Calcium 8.2 mg/dL (8.6-10.3); Carbon Dioxide 26 mEq/L (23-29); Chloride 107 mEq/L (98-107); Chol/HDL Ratio 6.3 (0-4.9); Cholesterol 214 mg/dL (< 200); Glucose 91 mg/dL (70-105); HDL Cholesterol 34 mg/dL (40-59); LDL Cholesterol,Calculated 142 mg/dL (< 100); Lipase 104 Units/L (11-82); Magnesium 1.6 mg/dL (1.6-2.6); Osmolality,Calculated 290 (280-300); Phosphorous 4.6 mg/dL (2.7-4.5); Potassium 3.7 mEq/L (3.5-5.1); Sodium 140 mEq/L (136-145); Triglycerides 190 mg/dL (< 150); eGFR For African Americans > 60 (> 60); eGFR For Non-African Americans > 60 (> 60)
[2020-08-03] MEDS ORDERED: D5% in Water 1,000 ML IVC PRN (07:41)
[2020-08-03] MEDS ORDERED: Dextrose Gel 15 GM/37.5 ML TUBE PO PRN ×2 (07:41)
[2020-08-03] MEDS ORDERED: *HR* Dextrose 50 % in Water (Vial) 50 ML VIAL IVP PRN (07:41)
[2020-08-03 08:30] LABS: Estimated Average Glucose 335 mg/dl; Hemoglobin A1C 13.3 %
[2020-08-03] MEDS: *HR* HYDROcodone/Acet 5/325 mg TABLET PO PRN ×2 (09:58→20:32)
[2020-08-03] MEDS: Insulin LISPRO 300 UNITS/3 ML VIAL SUBQ SCH ×2 (13:37→17:18)
[2020-08-03] MEDS ORDERED: Insulin LISPRO 300 UNITS/3 ML VIAL SUBQ SCH (21:00)
[2020-08-03] MEDS: lisinopriL 20 MG TABLET PO SCH (21:21)
[2020-08-04] MEDS: *HR* HYDROcodone/Acet 5/325 mg TABLET PO PRN (03:00)
[2020-08-04] MEDS ORDERED: *HR* HYDROmorphone (PF) 1 MG/ML SYRINGE IVP ONE (04:39)
[2020-08-04] MEDS: Ringers Solution, Lactated 1,000 ML IVC SCH (04:57)
[2020-08-04 05:44] LABS: Basophils % 0.5 %; Eosinophils # 0.2 K/mcL (0.0-0.6); Eosinophils % 3.5 %; Hematocrit 34.6 % (35.3-44.9); Hemoglobin 11.5 g/dL (11.5-15.4); Immature Granulocytes % 0.5 % (0-4); Lymphocytes # 2.1 K/mcL (0.6-4.6); Lymphocytes % 32.2 %; Mean Corpuscular HGB Conc 33.2 g/dL (31.6-35.5); Mean Corpuscular Hemoglobin 30.3 pg (28.0-33.3); Mean Corpuscular Volume 91.1 fL (83.0-100.0); Mean Platelet Volume 10.1 fL (9.4-12.4); Monocytes # 0.3 K/mcL (0.0-1.3); Monocytes % 4.4 %; Neutrophils # 3.9 K/mcL (1.6-8.9); Platelet Count 193 K/mcL (140-400); Red Cell Distribution Width 12.5 % (11.5-14.5); Segmented Neutrophils % 58.9 %; White Blood Count 6.6 K/mcL (4.3-11.1)
[2020-08-04 06:04] LABS: Alanine Aminotransferase 22 Units/L (7-52); Albumin 2.8 g/dL (3.5-5.7); Albumin/Globulin Ratio 1.3 (1.1-2.2); Alkaline Phosphatase 68 Units/L (34-104); Aspartate Amino Transferase 19 Units/L (13-39); BUN/Creatinine Ratio 23 (6-26); Bilirubin,Total 0.2 mg/dL (0.3-1.0); Blood Urea Nitrogen 15 mg/dL (6-20); Calcium 7.7 mg/dL (8.6-10.3); Carbon Dioxide 26 mEq/L (23-29); Chloride 111 mEq/L (98-107); Globulin 2.2 g/dL (2.4-3.5); Glucose 193 mg/dL (70-105); Lipase 125 Units/L (11-82); Osmolality,Calculated 298 (280-300); Potassium 4.1 mEq/L (3.5-5.1); Sodium 141 mEq/L (136-145); eGFR For African Americans > 60 (> 60); eGFR For Non-African Americans > 60 (> 60)
[2020-08-04 06:38] VITALS: BP 159/88
[2020-08-04] MEDS: Insulin LISPRO 300 UNITS/3 ML VIAL SUBQ SCH (08:06)
[2020-08-04] MEDS: lisinopriL 20 MG TABLET PO SCH (08:06)
== END 2020-08-04 12:07 | disposition home or self-care (01) ==
LOC: 2ANU 20:47 → EMEROOARM 20:47 → SUATTDRO 08-03 02:25 → 2ANU 08-03 03:21
PROVIDERS: ADMIT Student in an Organized Health Care Education/Training Program; ATTEND Family Medicine

== ENCOUNTER 2020-11-05 20:48 | Inpatient (IN) ==
[2020-11-05 21:49] LABS: Basophils # 0.1 K/mcL (0.0-0.2); Basophils % 0.7 %; Eosinophils # 0.2 K/mcL (0.0-0.6); Eosinophils % 1.9 %; Hematocrit 39.8 % (35.3-44.9); Hemoglobin 13.8 g/dL (11.5-15.4); Immature Granulocytes % 0.4 % (0-4); Lymphocytes # 2.5 K/mcL (0.6-4.6); Lymphocytes % 27.6 %; Mean Corpuscular HGB Conc 34.7 g/dL (31.6-35.5); Mean Corpuscular Hemoglobin 30.2 pg (28.0-33.3); Mean Corpuscular Volume 87.1 fL (83.0-100.0); Mean Platelet Volume 11.2 fL (9.4-12.4); Monocytes # 0.5 K/mcL (0.0-1.3); Neutrophils # 5.9 K/mcL (1.6-8.9); Platelet Count 255 K/mcL (140-400); Red Blood Count 4.57 M/mcL (3.82-4.97); Red Cell Distribution Width 12.8 % (11.5-14.5); Segmented Neutrophils % 64.4 %; White Blood Count 9.2 K/mcL (4.3-11.1)
[2020-11-05 22:04] LABS: Alanine Aminotransferase 15 Units/L (7-52); Albumin 3.2 g/dL (3.5-5.7); Albumin/Globulin Ratio 1.1 (1.1-2.2); Alkaline Phosphatase 73 Units/L (34-104); Aspartate Amino Transferase 11 Units/L (13-39); BUN/Creatinine Ratio 16 (6-26); Bilirubin,Indirect 0.3 mg/dL (0.0-1.0); Bilirubin,Total 0.3 mg/dL (0.3-1.0); Blood Urea Nitrogen 23 mg/dL (6-20); Calcium 8.6 mg/dL (8.6-10.3); Carbon Dioxide 23 mEq/L (23-29); Chloride 98 mEq/L (98-107); Globulin 2.9 g/dL (2.4-3.5); Glucose 468 mg/dL (70-105); Lipase 36 Units/L (11-82); Osmolality,Calculated 300 (280-300); Potassium 4.5 mEq/L (3.5-5.1); Sodium 133 mEq/L (136-145); Total Protein 6.1 g/dL (6.4-8.9); Troponin I < 0.03 ng/mL (< 0.04); eGFR For African Americans 48 (> 60); eGFR For Non-African Americans 40 (> 60)
[2020-11-05] MEDS ORDERED: Ketorolac 15 MG/ML VIAL IVP ONE (23:04)
[2020-11-05] MEDS ORDERED: Aspirin Enteric Coated 325 MG Tablet PO STA (23:04)
[2020-11-05] MEDS ORDERED: Melatonin 3 MG TABLET PO PRN (23:47)
[2020-11-05] MEDS ORDERED: Acetaminophen 325 MG TABLET PO PRN (23:47)
[2020-11-05] MEDS ORDERED: Naloxone 0.4 MG/ML INJ IVP PRN (23:47)
[2020-11-06] MEDS: Nitroglycerin 0.4 MG TAB.SUBL SL PRN ×3 (01:10→01:34)
[2020-11-06] MEDS ORDERED: 0.9 % Sodium Chloride 1,000 ML IVC ONE (01:18)
[2020-11-06] MEDS ORDERED: Insulin Human Regular 10 UNIT in 0.9 % Sodium Chloride 10 ML IV ONE ×2 (01:18→05:13)
[2020-11-06 02:24] LABS: Basophils # 0.1 K/mcL (0.0-0.2); Basophils % 0.7 %; Eosinophils # 0.2 K/mcL (0.0-0.6); Eosinophils % 2.2 %; Hematocrit 35.7 % (35.3-44.9); Immature Granulocytes % 0.4 % (0-4); Lymphocytes # 2.4 K/mcL (0.6-4.6); Mean Corpuscular HGB Conc 33.6 g/dL (31.6-35.5); Mean Corpuscular Hemoglobin 29.9 pg (28.0-33.3); Mean Platelet Volume 10.9 fL (9.4-12.4); Monocytes # 0.2 K/mcL (0.0-1.3); Monocytes % 2.9 %; Neutrophils # 4.7 K/mcL (1.6-8.9); Platelet Count 222 K/mcL (140-400); Red Blood Count 4.01 M/mcL (3.82-4.97); Red Cell Distribution Width 12.6 % (11.5-14.5); Segmented Neutrophils % 61.8 %; White Blood Count 7.6 K/mcL (4.3-11.1)
[2020-11-06] MEDS ORDERED: D5% in Water 1,000 ML IVC PRN (02:25)
[2020-11-06] MEDS ORDERED: Dextrose Gel 15 GM/37.5 ML TUBE PO PRN ×2 (02:25)
[2020-11-06] MEDS ORDERED: *HR* Dextrose 50 % in Water (Vial) 50 ML VIAL IVP PRN (02:25)
[2020-11-06] MEDS: Morphine Sulfate 2 MG/ML SYRINGE IVP PRN ×3 (02:42→20:18)
[2020-11-06 02:47] LABS: Alanine Aminotransferase 12 Units/L (7-52); Albumin 2.9 g/dL (3.5-5.7); Albumin/Globulin Ratio 1.3 (1.1-2.2); Alkaline Phosphatase 72 Units/L (34-104); Aspartate Amino Transferase 8 Units/L (13-39); BUN/Creatinine Ratio 23 (6-26); Bilirubin,Total 0.2 mg/dL (0.3-1.0); Blood Urea Nitrogen 29 mg/dL (6-20); Calcium 8.1 mg/dL (8.6-10.3); Carbon Dioxide 24 mEq/L (23-29); Chloride 99 mEq/L (98-107); Globulin 2.3 g/dL (2.4-3.5); Glucose 632 mg/dL (70-105); Magnesium 1.8 mg/dL (1.6-2.6); Osmolality,Calculated 309 (280-300); Phosphorous 4.5 mg/dL (2.7-4.5); Potassium 4.3 mEq/L (3.5-5.1); Sodium 132 mEq/L (136-145); Total Protein 5.2 g/dL (6.4-8.9); Troponin I < 0.03 ng/mL (< 0.04); eGFR For African Americans 56 (> 60); eGFR For Non-African Americans 47 (> 60)
[2020-11-06] MEDS: *HR* Heparin 5,000 UNIT/ML VIAL SQ SCH ×2 (05:52→17:45)
[2020-11-06] MEDS ORDERED: Insulin LISPRO 300 UNITS/3 ML VIAL SUBQ SCH ×2 (06:00→21:00)
[2020-11-06] MEDS ORDERED: Regadenoson 0.4 MG/5 ML SYRINGE IVP ONE (08:25)
[2020-11-06] MEDS ORDERED: Perflutren Lipid Microsphere 1.3 ML in 0.9 % Sodium Chloride 8.7 ML IVP PRN (10:39)
[2020-11-06] MEDS: Aspirin 81 MG TAB.CHEW PO SCH (10:50)
[2020-11-06] MEDS: amLODIPine 5 MG TABLET PO SCH (10:50)
[2020-11-06] MEDS: 0.9 % Sodium Chloride 1,000 ML IVC SCH (10:52)
[2020-11-06] MEDS: Isosorbide MONOnitrate (24 HR) 30 MG TAB.ER.24H PO SCH (13:50)
[2020-11-06] MEDS: Insulin DETEMIR 100 UNIT/ML X5UNITS SUBQ SCH (13:51)
[2020-11-06] MEDS: Insulin LISPRO 300 UNITS/3 ML VIAL SUBQ SCH ×2 (13:53→17:44)
[2020-11-06] MEDS: Ondansetron 4 MG/2 ML VIAL IVP PRN (20:33)
[2020-11-07 00:36] LABS: Hematocrit 36.5 % (35.3-44.9); Mean Corpuscular HGB Conc 33.4 g/dL (31.6-35.5); Mean Corpuscular Hemoglobin 29.5 pg (28.0-33.3); Mean Corpuscular Volume 88.4 fL (83.0-100.0); Mean Platelet Volume 10.7 fL (9.4-12.4); Platelet Count 234 K/mcL (140-400); Red Blood Count 4.13 M/mcL (3.82-4.97); Red Cell Distribution Width 12.9 % (11.5-14.5); White Blood Count 7.4 K/mcL (4.3-11.1)
[2020-11-07 00:38] LABS: Hemoglobin 12.2 g/dL (11.5-15.4)
[2020-11-07 00:56] LABS: Alanine Aminotransferase 12 Units/L (7-52); Albumin 2.8 g/dL (3.5-5.7); Albumin/Globulin Ratio 1.1 (1.1-2.2); Alkaline Phosphatase 56 Units/L (34-104); Aspartate Amino Transferase 11 Units/L (13-39); BUN/Creatinine Ratio 32 (6-26); Bilirubin,Total 0.2 mg/dL (0.3-1.0); Blood Urea Nitrogen 32 mg/dL (6-20); Calcium 7.9 mg/dL (8.6-10.3); Carbon Dioxide 25 mEq/L (23-29); Chloride 103 mEq/L (98-107); Globulin 2.5 g/dL (2.4-3.5); Glucose 321 mg/dL (70-105); Osmolality,Calculated 301 (280-300); Potassium 4.1 mEq/L (3.5-5.1); Sodium 136 mEq/L (136-145); Total Protein 5.3 g/dL (6.4-8.9); eGFR For African Americans > 60 (> 60); eGFR For Non-African Americans > 60 (> 60)
[2020-11-07] MEDS: 0.9 % Sodium Chloride 1,000 ML IVC SCH ×2 (02:17→21:15)
[2020-11-07] MEDS: Insulin LISPRO 300 UNITS/3 ML VIAL SUBQ SCH ×4 (03:09→21:27)
[2020-11-07] MEDS: Morphine Sulfate 2 MG/ML SYRINGE IVP PRN ×4 (03:17→21:44)
[2020-11-07] MEDS: *HR* Heparin 5,000 UNIT/ML VIAL SQ SCH ×2 (05:20→17:08)
[2020-11-07] MEDS: Aspirin 81 MG TAB.CHEW PO SCH (08:23)
[2020-11-07] MEDS: amLODIPine 5 MG TABLET PO SCH (08:23)
[2020-11-07] MEDS: Isosorbide MONOnitrate (24 HR) 30 MG TAB.ER.24H PO SCH (08:23)
[2020-11-07] MEDS: Ondansetron 4 MG/2 ML VIAL IVP PRN (08:24)
[2020-11-07] MEDS: Insulin DETEMIR 100 UNIT/ML X5UNITS SUBQ SCH ×2 (08:32→16:16)
[2020-11-07] MEDS ORDERED: 0.9 % Sodium Chloride 2,000 ML ONE (12:25)
[2020-11-07] MEDS ORDERED: ISOVUE-370 200 ML INFUS..BTL ONE (12:26)
[2020-11-07] MEDS ORDERED: Nitroglycerin 1,000 MCG/5 ML VIAL IV ONE (12:26)
[2020-11-07] MEDS ORDERED: *HR* Heparin 10,000 UNIT/10 ML VIAL ONE (12:26)
[2020-11-07] MEDS ORDERED: Heparin 1,000 UNITS/500 mL 500 ML ONE (12:26)
[2020-11-07] MEDS ORDERED: *HR* Midazolam HCl 2 MG/2 ML VIAL ONE (12:59)
[2020-11-07] MEDS ORDERED: *HR* FentaNYL (PF) 100 MCG/2 ML VIAL ONE (13:00)
[2020-11-07] MEDS: carvediloL 6.25 MG TABLET PO SCH (17:11)
[2020-11-07] MEDS ORDERED: Insulin LISPRO 300 UNITS/3 ML VIAL SUBQ SCH (21:00)
[2020-11-08] MEDS: Morphine Sulfate 2 MG/ML SYRINGE IVP PRN ×2 (00:29→07:50)
[2020-11-08 05:23] LABS: Hematocrit 32.2 % (35.3-44.9); Hemoglobin 11.1 g/dL (11.5-15.4); Mean Corpuscular HGB Conc 34.5 g/dL (31.6-35.5); Mean Corpuscular Hemoglobin 30.3 pg (28.0-33.3); Mean Platelet Volume 10.8 fL (9.4-12.4); Platelet Count 200 K/mcL (140-400); Red Blood Count 3.66 M/mcL (3.82-4.97); Red Cell Distribution Width 12.9 % (11.5-14.5); White Blood Count 6.9 K/mcL (4.3-11.1)
[2020-11-08 05:41] LABS: Alanine Aminotransferase 12 Units/L (7-52); Albumin 2.6 g/dL (3.5-5.7); Albumin/Globulin Ratio 1.2 (1.1-2.2); Alkaline Phosphatase 51 Units/L (34-104); Aspartate Amino Transferase 12 Units/L (13-39); BUN/Creatinine Ratio 27 (6-26); Bilirubin,Total 0.2 mg/dL (0.3-1.0); Blood Urea Nitrogen 21 mg/dL (6-20); Calcium 7.8 mg/dL (8.6-10.3); Carbon Dioxide 25 mEq/L (23-29); Chloride 106 mEq/L (98-107); Globulin 2.2 g/dL (2.4-3.5); Glucose 304 mg/dL (70-105); Osmolality,Calculated 298 (280-300); Potassium 4.2 mEq/L (3.5-5.1); Sodium 137 mEq/L (136-145); Total Protein 4.8 g/dL (6.4-8.9); eGFR For African Americans > 60 (> 60); eGFR For Non-African Americans > 60 (> 60)
[2020-11-08] MEDS: *HR* Heparin 5,000 UNIT/ML VIAL SQ SCH ×2 (05:47→17:22)
[2020-11-08 06:54] LABS: Estimated Average Glucose 324 mg/dl; Hemoglobin A1C 12.9 %
[2020-11-08] MEDS ORDERED: Insulin LISPRO 300 UNITS/3 ML VIAL SUBQ SCH (07:30)
[2020-11-08] MEDS ORDERED: Isovue-370 500 ML BOTTLE IVP ONE (07:44)
[2020-11-08] MEDS: carvediloL 6.25 MG TABLET PO SCH (07:49)
[2020-11-08] MEDS: Isosorbide MONOnitrate (24 HR) 60 MG TAB.ER.24H PO SCH (07:49)
[2020-11-08] MEDS: amLODIPine 5 MG TABLET PO SCH (07:49)
[2020-11-08] MEDS: Aspirin 81 MG TAB.CHEW PO SCH (07:49)
[2020-11-08] MEDS: Insulin LISPRO 300 UNITS/3 ML VIAL SUBQ SCH ×4 (07:51→20:13)
[2020-11-08] MEDS ORDERED: carvediloL 25 MG TABLET PO SCH (08:00)
[2020-11-08] MEDS ORDERED: lisinopriL 20 MG TABLET PO SCH ×2 (09:00→13:51)
[2020-11-08] MEDS ORDERED: 0.9 % Sodium Chloride 1,000 ML IVC ONE (13:25)
[2020-11-08] MEDS ORDERED: amLODIPine 5 MG TABLET PO SCH (13:50)
[2020-11-08] MEDS ORDERED: Ketorolac 30 MG/ML VIAL IVP PRN (16:16)
[2020-11-08] MEDS ORDERED: Morphine Sulfate 2 MG/ML SYRINGE IVP ONE (20:47)
[2020-11-08] MEDS ORDERED: Insulin DETEMIR 100 UNIT/ML X5UNITS SUBQ SCH ×2 (21:00)
[2020-11-08] MEDS: Calcium Gluconate 1gm/50mL 1 GM/50 ML BAG IVPB SCH (23:54)
[2020-11-09] MEDS: Calcium Gluconate 1gm/50mL 1 GM/50 ML BAG IVPB SCH (00:51)
[2020-11-09 05:17] LABS: Hemoglobin 10.9 g/dL (11.5-15.4); Mean Corpuscular HGB Conc 34.1 g/dL (31.6-35.5); Mean Corpuscular Hemoglobin 30.7 pg (28.0-33.3); Mean Corpuscular Volume 90.1 fL (83.0-100.0); Platelet Count 200 K/mcL (140-400); Red Blood Count 3.55 M/mcL (3.82-4.97); White Blood Count 6.5 K/mcL (4.3-11.1)
[2020-11-09] MEDS: *HR* Heparin 5,000 UNIT/ML VIAL SQ SCH (05:24)
[2020-11-09 05:38] LABS: Alanine Aminotransferase 16 Units/L (7-52); Albumin 2.7 g/dL (3.5-5.7); Albumin/Globulin Ratio 1.2 (1.1-2.2); Alkaline Phosphatase 58 Units/L (34-104); Aspartate Amino Transferase 13 Units/L (13-39); BUN/Creatinine Ratio 42 (6-26); Bilirubin,Total 0.2 mg/dL (0.3-1.0); Blood Urea Nitrogen 31 mg/dL (6-20); Calcium 8.5 mg/dL (8.6-10.3); Carbon Dioxide 22 mEq/L (23-29); Chloride 108 mEq/L (98-107); Globulin 2.2 g/dL (2.4-3.5); Glucose 279 mg/dL (70-105); Osmolality,Calculated 299 (280-300); Potassium 4.4 mEq/L (3.5-5.1); Sodium 136 mEq/L (136-145); Total Protein 4.9 g/dL (6.4-8.9); eGFR For African Americans > 60 (> 60); eGFR For Non-African Americans > 60 (> 60)
[2020-11-09 07:17] VITALS: BP 145/73
[2020-11-09] MEDS: Isosorbide MONOnitrate (24 HR) 60 MG TAB.ER.24H PO SCH (08:51)
[2020-11-09] MEDS: Aspirin 81 MG TAB.CHEW PO SCH (08:51)
[2020-11-09] MEDS: Insulin LISPRO 300 UNITS/3 ML VIAL SUBQ SCH ×2 (08:52→11:21)
== END 2020-11-09 12:05 | disposition home or self-care (01) | DRG 287 ==
LOC: EMEROOARM 20:48 → 3BNU 20:48 → SUATTDRO 23:21 → 3BNU 23:45 → SUATTDRO 11-06 15:45
PROVIDERS: ADMIT Family Medicine; ATTEND Nurse Practitioner

== ENCOUNTER 2021-05-05 03:17 | Inpatient (IN) ==
[2021-05-05 03:47] LABS: Basophils # 0.1 K/mcL (0.0-0.2); Basophils % 0.7 %; Eosinophils # 0.2 K/mcL (0.0-0.6); Eosinophils % 3.4 %; Hematocrit 37.1 % (35.3-44.9); Hemoglobin 12.8 g/dL (11.5-15.4); Immature Granulocytes % 0.3 % (0-4); Lymphocytes # 2.2 K/mcL (0.6-4.6); Lymphocytes % 32.8 %; Mean Corpuscular HGB Conc 34.5 g/dL (31.6-35.5); Mean Corpuscular Hemoglobin 30.6 pg (28.0-33.3); Mean Corpuscular Volume 88.8 fL (83.0-100.0); Mean Platelet Volume 10.8 fL (9.4-12.4); Monocytes # 0.3 K/mcL (0.0-1.3); Monocytes % 3.7 %; Platelet Count 260 K/mcL (140-400); Red Blood Count 4.18 M/mcL (3.82-4.97); Red Cell Distribution Width 12.7 % (11.5-14.5); Segmented Neutrophils % 59.1 %; White Blood Count 6.8 K/mcL (4.3-11.1)
[2021-05-05 04:08] LABS: BUN/Creatinine Ratio 30 (6-26); Blood Urea Nitrogen 28 mg/dL (6-20); Carbon Dioxide 25 mEq/L (23-29); Chloride 104 mEq/L (98-107); Glucose 293 mg/dL (70-105); Osmolality,Calculated 300 (280-300); Potassium 3.5 mEq/L (3.5-5.1); Sodium 137 mEq/L (136-145); Troponin I 0.03 ng/mL (< 0.04); eGFR For African Americans > 60 (> 60); eGFR For Non-African Americans > 60 (> 60)
[2021-05-05] MEDS ORDERED: Isovue-370 500 ML BOTTLE IVP ONE (04:08)
[2021-05-05 05:20] LABS: Adenovirus Not Detected (Not Detect); Bordetella Pertussis Not Detected (Not Detect); Chlamydophila pneumoniae Not Detected (Not Detect); Coronavirus 229E Not Detected (Not Detect); Coronavirus HKU1 Not Detected (Not Detect); Coronavirus NL63 Not Detected (Not Detect); Coronavirus OC43 Not Detected (Not Detect); Human Metapneumovirus Not Detected (Not Detect); Human Rhinovirus/Enterovirus Not Detected (Not Detect); Influenza A Subtype 2009 H1 Not Detected (Not Detect); Influenza B Not Detected (Not Detect); Mycoplasma pneumoniae Not Detected (Not Detect); Parainfluenza Virus 1 Not Detected (Not Detect); Parainfluenza Virus 2 Not Detected (Not Detect); Parainfluenza Virus 3 Not Detected (Not Detect); Parainfluenza Virus 4 Not Detected (Not Detect); Respiratory Syncytial Virus Not Detected (Not Detect); SARS-CoV-2 Not Detected (Not Detect)
[2021-05-05] MEDS ORDERED: Aspirin 81 MG TAB.CHEW PO ONE (07:58)
[2021-05-05] MEDS ORDERED: Aspirin 325 MG TABLET PO ONE (08:13)
[2021-05-05] MEDS ORDERED: *HR* Heparin 5,000 UNIT/ML VIAL IVP ONE (08:26)
[2021-05-05] MEDS ORDERED: *HR* Heparin 5,000 UNIT/ML VIAL IVP PRN ×2 (08:26)
[2021-05-05] MEDS ORDERED: Ondansetron 4 MG/2 ML VIAL IVP PRN (08:40)
[2021-05-05] MEDS ORDERED: Naloxone 0.4 MG/ML INJ IVP PRN (08:40)
[2021-05-05] MEDS ORDERED: Nitroglycerin 0.4 MG TAB.SUBL SL PRN (08:53)
[2021-05-05] MEDS: Heparin 25,000UNIT/250ML 1/2NS 25,000 UNIT/250 ML IV.SOLN IVC SCH (08:58)
[2021-05-05] MEDS ORDERED: Dextrose Gel 15 GM/37.5 ML TUBE PO PRN ×2 (09:16)
[2021-05-05] MEDS ORDERED: *HR* Dextrose 50 % in Water (Syg) 50 ML SYRINGE IVP PRN (09:16)
[2021-05-05] MEDS ORDERED: D5% in Water 1,000 ML IVC PRN (09:16)
[2021-05-05 09:17] LABS: INR 0.9; Prothrombin Time 9.7 Seconds (9.4-12.1)
[2021-05-05 09:20] LABS: Heparin anti-factor XA UFH < 0.04 IU/mL (0.30-0.70)
[2021-05-05] MEDS ORDERED: Perflutren Lipid Microsphere 1.3 ML in 0.9 % Sodium Chloride 8.7 ML IVP PRN (09:40)
[2021-05-05] MEDS: Metoprolol XL (24 HR) Succ 25 MG TAB.ER.24H PO SCH (10:20)
[2021-05-05] MEDS: Isosorbide MONOnitrate (24 HR) 30 MG TAB.ER.24H PO SCH (10:20)
[2021-05-05] MEDS ORDERED: *HR* OxyCODONE Immed Rel 5 MG TABLET PO PRN (10:30)
[2021-05-05] MEDS: Ipratropium/Albuterol Neb 3 ML IH SCH ×4 (11:38→23:06)
[2021-05-05] MEDS: amLODIPine 5 MG TABLET PO SCH (11:41)
[2021-05-05] MEDS: Insulin LISPRO 300 UNITS/3 ML VIAL SUBQ SCH ×3 (12:36→21:06)
[2021-05-05] MEDS: Morphine Sulfate 2 MG/ML SYRINGE IVP PRN (18:54)
[2021-05-05] MEDS: Gabapentin 300 MG CAPSULE PO SCH (21:05)
[2021-05-06] MEDS: Heparin 25,000UNIT/250ML 1/2NS 25,000 UNIT/250 ML IV.SOLN IVC SCH (00:46)
[2021-05-06 01:22] LABS: Basophils % 0.6 %; Eosinophils # 0.2 K/mcL (0.0-0.6); Eosinophils % 3.6 %; Hematocrit 32.9 % (35.3-44.9); Hemoglobin 11.1 g/dL (11.5-15.4); Immature Granulocytes % 0.4 % (0-4); Lymphocytes # 1.8 K/mcL (0.6-4.6); Mean Corpuscular HGB Conc 33.7 g/dL (31.6-35.5); Mean Corpuscular Hemoglobin 30.5 pg (28.0-33.3); Mean Corpuscular Volume 90.4 fL (83.0-100.0); Monocytes # 0.2 K/mcL (0.0-1.3); Platelet Count 202 K/mcL (140-400); Red Blood Count 3.64 M/mcL (3.82-4.97); Segmented Neutrophils % 57.4 %; White Blood Count 5.2 K/mcL (4.3-11.1)
[2021-05-06 01:42] LABS: BUN/Creatinine Ratio 24 (6-26); Blood Urea Nitrogen 18 mg/dL (6-20); Calcium 7.5 mg/dL (8.6-10.3); Carbon Dioxide 25 mEq/L (23-29); Chloride 109 mEq/L (98-107); Glucose 288 mg/dL (70-105); Magnesium 1.7 mg/dL (1.6-2.6); Osmolality,Calculated 300 (280-300); Potassium 3.7 mEq/L (3.5-5.1); Sodium 139 mEq/L (136-145); eGFR For African Americans > 60 (> 60); eGFR For Non-African Americans > 60 (> 60)
[2021-05-06] MEDS: Morphine Sulfate 2 MG/ML SYRINGE IVP PRN ×2 (03:00→09:08)
[2021-05-06] MEDS: Ipratropium/Albuterol Neb 3 ML IH SCH ×6 (03:49→23:47)
[2021-05-06] MEDS: Insulin LISPRO 300 UNITS/3 ML VIAL SUBQ SCH ×4 (08:59→20:58)
[2021-05-06] MEDS: amLODIPine 5 MG TABLET PO SCH (08:59)
[2021-05-06] MEDS: Metoprolol XL (24 HR) Succ 25 MG TAB.ER.24H PO SCH (08:59)
[2021-05-06] MEDS: Aspirin 81 MG TAB.CHEW PO SCH (08:59)
[2021-05-06] MEDS: Gabapentin 300 MG CAPSULE PO SCH ×2 (08:59→21:21)
[2021-05-06] MEDS: Isosorbide MONOnitrate (24 HR) 30 MG TAB.ER.24H PO SCH (08:59)
[2021-05-06] MEDS ORDERED: Azithromycin 500 MG in 0.9 % Sodium Chloride 250 ML IVPB SCH (09:00)
[2021-05-06] MEDS: cefTRIAXone 1,000 MG in 0.9 % Sodium Chloride Mini Bag 100 ML IVPB SCH (10:34)
[2021-05-06 12:28] LABS: Estimated Average Glucose 306 mg/dl; Hemoglobin A1C 12.3 %
[2021-05-06] MEDS: lisinopriL 5 MG TABLET PO SCH (12:51)
[2021-05-06] MEDS: *HR* OxyCODONE Immed Rel 5 MG TABLET PO PRN (16:52)
[2021-05-06] MEDS ORDERED: Gabapentin 300 MG CAPSULE PO SCH (21:00)
[2021-05-06] MEDS ORDERED: Morphine Sulfate 2 MG/ML SYRINGE IVP ONE (21:42)
[2021-05-07] MEDS: Heparin 25,000UNIT/250ML 1/2NS 25,000 UNIT/250 ML IV.SOLN IVC SCH (01:22)
[2021-05-07 03:01] LABS: Hematocrit 34.3 % (35.3-44.9); Hemoglobin 11.6 g/dL (11.5-15.4); Mean Corpuscular HGB Conc 33.8 g/dL (31.6-35.5); Mean Corpuscular Hemoglobin 30.9 pg (28.0-33.3); Mean Corpuscular Volume 91.2 fL (83.0-100.0); Mean Platelet Volume 11.2 fL (9.4-12.4); Platelet Count 236 K/mcL (140-400); Red Blood Count 3.76 M/mcL (3.82-4.97); White Blood Count 6.4 K/mcL (4.3-11.1)
[2021-05-07 03:20] LABS: Alanine Aminotransferase 17 Units/L (7-52); Albumin 2.9 g/dL (3.5-5.7); Albumin/Globulin Ratio 1.2 (1.1-2.2); Alkaline Phosphatase 60 Units/L (34-104); Aspartate Amino Transferase 15 Units/L (13-39); BUN/Creatinine Ratio 22 (6-26); Bilirubin,Total 0.2 mg/dL (0.3-1.0); Blood Urea Nitrogen 19 mg/dL (6-20); Calcium 8.3 mg/dL (8.6-10.3); Carbon Dioxide 26 mEq/L (23-29); Chloride 109 mEq/L (98-107); Globulin 2.4 g/dL (2.4-3.5); Glucose 225 mg/dL (70-105); Osmolality,Calculated 303 (280-300); Potassium 4.1 mEq/L (3.5-5.1); Sodium 142 mEq/L (136-145); Total Protein 5.3 g/dL (6.4-8.9); eGFR For African Americans > 60 (> 60); eGFR For Non-African Americans > 60 (> 60)
[2021-05-07] MEDS: Ipratropium/Albuterol Neb 3 ML IH SCH ×3 (05:04→11:20)
[2021-05-07 07:49] VITALS: TEMP 98.4
[2021-05-07] MEDS: Insulin LISPRO 300 UNITS/3 ML VIAL SUBQ SCH (08:10)
[2021-05-07] MEDS: cefTRIAXone 1,000 MG in 0.9 % Sodium Chloride Mini Bag 100 ML IVPB SCH (08:12)
[2021-05-07] MEDS: amLODIPine 5 MG TABLET PO SCH (08:14)
[2021-05-07] MEDS: Gabapentin 300 MG CAPSULE PO SCH (08:14)
[2021-05-07] MEDS: lisinopriL 5 MG TABLET PO SCH (08:14)
[2021-05-07] MEDS: *HR* OxyCODONE Immed Rel 5 MG TABLET PO PRN (08:15)
[2021-05-07] MEDS: Metoprolol XL (24 HR) Succ 25 MG TAB.ER.24H PO SCH (08:15)
[2021-05-07] MEDS: Isosorbide MONOnitrate (24 HR) 30 MG TAB.ER.24H PO SCH (08:15)
[2021-05-07] MEDS: Aspirin 81 MG TAB.CHEW PO SCH (08:15)
[2021-05-08] MEDS ORDERED: Dextrose Gel 15 GM/37.5 ML TUBE PO PRN ×2 (01:55)
[2021-05-08] MEDS ORDERED: D5% in Water 1,000 ML IVC PRN (01:55)
[2021-05-08] MEDS ORDERED: Nitroglycerin 0.4 MG TAB.SUBL SL PRN (01:55)
[2021-05-08] MEDS ORDERED: *HR* Dextrose 50 % in Water (Syg) 50 ML SYRINGE IVP PRN (01:55)
[2021-05-08] MEDS ORDERED: Acetaminophen 325 MG TABLET PO PRN (01:57)
[2021-05-08] MEDS ORDERED: Ketorolac 15 MG/ML VIAL IVP ONE (02:52)
[2021-05-08] MEDS ORDERED: Insulin LISPRO 300 UNITS/3 ML VIAL SUBQ SCH (07:30)
[2021-05-08 07:57] VITALS: BP 154/80; PULSE 83; O2SAT 92
[2021-05-08] MEDS ORDERED: Aspirin 81 MG TAB.CHEW PO SCH (09:00)
[2021-05-08] MEDS ORDERED: Isosorbide MONOnitrate (24 HR) 30 MG TAB.ER.24H PO SCH (09:00)
[2021-05-08] MEDS ORDERED: levoFLOXacin 750 MG TABLET PO SCH (09:00)
[2021-05-08] MEDS ORDERED: Metoprolol XL (24 HR) Succ 25 MG TAB.ER.24H PO SCH (09:00)
[2021-05-08] MEDS ORDERED: lisinopriL 5 MG TABLET PO SCH (09:00)
[2021-05-08] MEDS ORDERED: Furosemide 20 MG TABLET PO SCH (09:00)
== END 2021-05-07 12:03 | disposition home or self-care (01) | DRG 280 ==
LOC: EMEROOARM 03:17 → 3BNU 03:17 → SUATTDRO 08:48 → 3BNU 09:35 → UNDODISIN 05-07 12:03 → 3BNU 05-08 01:26
PROVIDERS: ADMIT Family Medicine; ATTEND Registered Nurse

== ENCOUNTER 2021-06-13 15:19 | Observation (INO) ==
[2021-06-13] MEDS ORDERED: 0.9 % Sodium Chloride 1,000 ML ONE ×2 (15:44→15:45)
[2021-06-13] MEDS ORDERED: 0.9 % Sodium Chloride 1,000 ML IV ONE ×3 (15:45→16:43)
[2021-06-13] MEDS ORDERED: Aspirin 81 MG TAB.CHEW PO ONE (15:45)
[2021-06-13] MEDS ORDERED: Nitroglycerin 0.4 MG TAB.SUBL SL ONE (15:45)
[2021-06-13] MEDS: Nitroglycerin 0.4 MG TAB.SUBL SL PRN ×3 (15:46→15:57)
[2021-06-13] MEDS ORDERED: 0.9 % Sodium Chloride 500 ML IV ONE (15:49)
[2021-06-13 16:03] LABS: Basophils # 0.1 K/mcL (0.0-0.2); Basophils % 0.8 %; Eosinophils # 0.2 K/mcL (0.0-0.6); Eosinophils % 2.3 %; Hematocrit 40.7 % (35.3-44.9); Hemoglobin 14.1 g/dL (11.5-15.4); Immature Granulocytes % 0.3 % (0-4); Lymphocytes # 1.9 K/mcL (0.6-4.6); Lymphocytes % 21.7 %; Mean Corpuscular HGB Conc 34.6 g/dL (31.6-35.5); Mean Corpuscular Hemoglobin 29.8 pg (28.0-33.3); Mean Platelet Volume 11.7 fL (9.4-12.4); Monocytes # 0.3 K/mcL (0.0-1.3); Monocytes % 3.8 %; Neutrophils # 6.3 K/mcL (1.6-8.9); Platelet Count 306 K/mcL (140-400); Red Blood Count 4.73 M/mcL (3.82-4.97); Red Cell Distribution Width 12.6 % (11.5-14.5); Segmented Neutrophils % 71.1 %; White Blood Count 8.8 K/mcL (4.3-11.1)
[2021-06-13] MEDS ORDERED: 0.9 % Sodium Chloride 500 ML ONE (16:03)
[2021-06-13 16:26] LABS: BUN/Creatinine Ratio 17 (6-26); Blood Urea Nitrogen 20 mg/dL (6-20); Calcium 8.8 mg/dL (8.6-10.3); Carbon Dioxide 25 mEq/L (23-29); Chloride 97 mEq/L (98-107); Glucose 598 mg/dL (70-105); Osmolality,Calculated 300 (280-300); Potassium 4.4 mEq/L (3.5-5.1); Sodium 130 mEq/L (136-145); Troponin I < 0.03 ng/mL (< 0.04); eGFR For African Americans > 60 (> 60); eGFR For Non-African Americans 51 (> 60)
[2021-06-13 16:31] LABS: INR 0.9; Prothrombin Time 10.4 Seconds (9.4-12.1)
[2021-06-13 16:34] LABS: Activated Partial Thrombo Time 30.5 Seconds (26.0-36.0)
[2021-06-13] MEDS ORDERED: Isovue-370 500 ML BOTTLE IVP ONE (16:42)
[2021-06-13] MEDS ORDERED: Melatonin 3 MG TABLET PO PRN (20:39)
[2021-06-13] MEDS ORDERED: Ibuprofen 400 MG TABLET PO PRN (20:39)
[2021-06-13] MEDS ORDERED: Naloxone 0.4 MG/ML INJ IVP PRN (20:39)
[2021-06-13] MEDS ORDERED: Ondansetron ODT 4 MG TAB.RAPDIS SL PRN (20:39)
[2021-06-13] MEDS ORDERED: *HR* LORazepam 1 MG TABLET PO ONE (20:45)
[2021-06-13] MEDS ORDERED: D5% in Water 1,000 ML IVC PRN (21:44)
[2021-06-13] MEDS ORDERED: Dextrose Gel 15 GM/37.5 ML TUBE PO PRN ×2 (21:44)
[2021-06-13] MEDS ORDERED: *HR* Dextrose 50 % in Water (Syg) 50 ML SYRINGE IVP PRN (21:44)
[2021-06-13] MEDS ORDERED: Insulin LISPRO 300 UNITS/3 ML VIAL SUBQ SCH (21:45)
[2021-06-13] MEDS ORDERED: Furosemide 20 MG TABLET PO PRN (22:52)
[2021-06-13] MEDS ORDERED: Gabapentin 300 MG CAPSULE PO SCH ×2 (23:00→23:45)
[2021-06-13] MEDS: Gabapentin 300 MG CAPSULE PO SCH (23:26)
[2021-06-14 03:10] LABS: Hematocrit 32.8 % (35.3-44.9); Hemoglobin 11.4 g/dL (11.5-15.4); Mean Corpuscular HGB Conc 34.8 g/dL (31.6-35.5); Mean Corpuscular Hemoglobin 29.5 pg (28.0-33.3); Mean Corpuscular Volume 84.8 fL (83.0-100.0); Mean Platelet Volume 11.2 fL (9.4-12.4); Platelet Count 241 K/mcL (140-400); Red Blood Count 3.87 M/mcL (3.82-4.97); Red Cell Distribution Width 12.6 % (11.5-14.5); White Blood Count 7.5 K/mcL (4.3-11.1)
[2021-06-14 03:25] LABS: BUN/Creatinine Ratio 22 (6-26); Blood Urea Nitrogen 20 mg/dL (6-20); Calcium 7.9 mg/dL (8.6-10.3); Carbon Dioxide 26 mEq/L (23-29); Chloride 103 mEq/L (98-107); Glucose 398 mg/dL (70-105); Magnesium 1.8 mg/dL (1.6-2.6); Osmolality,Calculated 297 (280-300); Potassium 3.7 mEq/L (3.5-5.1); Sodium 134 mEq/L (136-145); eGFR For African Americans > 60 (> 60); eGFR For Non-African Americans > 60 (> 60)
[2021-06-14] MEDS ORDERED: Regadenoson 0.4 MG/5 ML SYRINGE IVP ONE (05:58)
[2021-06-14] MEDS: Gabapentin 300 MG CAPSULE PO SCH (06:14)
[2021-06-14] MEDS: Insulin LISPRO 300 UNITS/3 ML VIAL SUBQ SCH ×2 (08:46→11:41)
[2021-06-14] MEDS ORDERED: amLODIPine 5 MG TABLET PO SCH (09:00)
[2021-06-14] MEDS ORDERED: Aspirin 81 MG TAB.CHEW PO SCH (09:00)
[2021-06-14] MEDS ORDERED: Insulin DETEMIR 100 UNIT/ML X5UNITS SUBQ ONE (09:42)
[2021-06-14] MEDS ORDERED: Isosorbide MONOnitrate (24 HR) 30 MG TAB.ER.24H PO SCH (09:45)
[2021-06-14] MEDS ORDERED: Metoprolol XL (24 HR) Succ 25 MG TAB.ER.24H PO SCH (09:45)
[2021-06-14 10:54] VITALS: BP 148/78; PULSE 81; TEMP 97.4; O2SAT 98
[2021-06-15] MEDS ORDERED: lisinopriL 5 MG TABLET PO SCH (09:00)
[2021-06-18] MEDS ORDERED: (Dulaglutide [Trulicity] 1.5 MG/0.5 ML Pen.Injctr) SQ SCH (22:52)
== END 2021-06-14 15:38 | disposition home or self-care (01) ==
LOC: EMEROOARM 15:19 → 3BNU 15:19 → SUATTDRO 18:49 → 3BNU 19:33
PROVIDERS: ADMIT Internal Medicine; ATTEND Nurse Practitioner

== ENCOUNTER 2021-08-30 16:24 | Inpatient (IN) ==
[2021-08-30 17:52] LABS: Basophils % 0.5 %; Eosinophils # 0.2 K/mcL (0.0-0.6); Eosinophils % 2.5 %; Hematocrit 40.2 % (35.3-44.9); Immature Granulocytes % 0.4 % (0-4); Lymphocytes # 1.9 K/mcL (0.6-4.6); Lymphocytes % 25.6 %; Mean Corpuscular HGB Conc 34.8 g/dL (31.6-35.5); Mean Corpuscular Hemoglobin 30.2 pg (28.0-33.3); Mean Corpuscular Volume 86.8 fL (83.0-100.0); Mean Platelet Volume 11.3 fL (9.4-12.4); Monocytes # 0.3 K/mcL (0.0-1.3); Monocytes % 4.1 %; Neutrophils # 4.9 K/mcL (1.6-8.9); Platelet Count 259 K/mcL (140-400); Red Blood Count 4.63 M/mcL (3.82-4.97); Red Cell Distribution Width 13.1 % (11.5-14.5); Segmented Neutrophils % 66.9 %; White Blood Count 7.3 K/mcL (4.3-11.1)
[2021-08-30 18:00] LABS: Estimated Average Glucose 312 mg/dl; Hemoglobin A1C 12.5 %
[2021-08-30 18:14] LABS: Amphetamine Screen,Urine Negative ng/mL (Cutoff=1000); Barbiturate Screen,Urine Negative ng/mL (Cutoff=200); Benzodiazepines Screen,Urine Negative ng/mL (Cutoff=200); Cannabinoid Screen,Urine Positive ng/mL (Cutoff = 50); Cocaine Screen,Urine Negative ng/mL (Cutoff= 300); Opiate Screen,Urine Negative ng/mL (Cutoff=300); Phencyclidine Screen,Urine Negative ng/mL (Cutoff=25)
[2021-08-30 18:21] LABS: Acetaminophen < 10 mcg/mL (10-20); Alanine Aminotransferase 13 Units/L (7-52); Albumin 3.2 g/dL (3.5-5.7); Albumin/Globulin Ratio 1.2 (1.1-2.2); Alkaline Phosphatase 60 Units/L (34-104); Aspartate Amino Transferase 14 Units/L (13-39); BUN/Creatinine Ratio 17 (6-26); Bilirubin,Indirect 0.3 mg/dL (0.0-1.0); Bilirubin,Total 0.3 mg/dL (0.3-1.0); Blood Urea Nitrogen 20 mg/dL (6-20); Calcium 8.9 mg/dL (8.6-10.3); Carbon Dioxide 27 mEq/L (23-29); Chloride 95 mEq/L (98-107); Chol/HDL Ratio 8.5 (0-4.9); Cholesterol 364 mg/dL (< 200); Ethanol < 10 mg/dL (Less than 10); Globulin 2.6 g/dL (2.4-3.5); Glucose 543 mg/dL (70-105); HDL Cholesterol 43 mg/dL (40-59); Osmolality,Calculated 297 (280-300); Potassium 4.4 mEq/L (3.5-5.1); Salicylate < 2.5 mg/dL (15.0-30.0); Sodium 130 mEq/L (136-145); Total Protein 5.8 g/dL (6.4-8.9); Triglycerides 499 mg/dL (< 150); eGFR For African Americans 58 (> 60); eGFR For Non-African Americans 48 (> 60)
[2021-08-30 18:29] LABS: Bilirubin,Urine Negative (Negative); Blood,Urine Small (Negative); Clarity,Urine Clear (Clear); Color,Urine Light-Yellow (Yellow); Glucose,Urine (UA) >=1000 mg/dL (Normal); Ketones,Urine Negative (Negative); Leukocyte Esterase,Urine Negative (Negative); Nitrite,Urine Negative (Negative); Protein,Urine >=300 mg/dL (Neg-Trace); Specific Gravity,Urine > 1.030 (1.010-1.025); Squamous Epithelial Cell,Urine Moderate per hpf (None-Few); Urobilinogen,Urine Normal (Normal)
[2021-08-30] MEDS ORDERED: Isovue-370 500 ML BOTTLE IVP ONE (18:29)
[2021-08-30] MEDS: 0.9 % Sodium Chloride 2,000 ML IV ONE ×2 (18:39→20:20)
[2021-08-30 18:56] LABS: Thyroid Stimulating Hormone 1.774 mcIU/mL (0.340-5.600)
[2021-08-30 19:09] LABS: VBG HCO3 28 mEq/L (21-27); VBG PCO2 53 mmHg (41-51); VBG PH 7.33 pH Units (7.32-7.42); VBG PO2 46 mmHg (25-50)
[2021-08-30] MEDS ORDERED: Ibuprofen 600 MG TABLET PO ONE (20:16)
[2021-08-30] MEDS ORDERED: Insulin Regular, Human 100 UNIT/ML SUBQ ONE (21:39)
[2021-08-31] MEDS ORDERED: Gabapentin 400 MG CAPSULE PO ONE (01:30)
[2021-08-31] MEDS ORDERED: Gabapentin 300 MG CAPSULE PO ONE (01:45)
[2021-08-31] MEDS ORDERED: *HR* LORazepam 2 MG/ML VIAL IM ONE (03:27)
[2021-08-31] MEDS ORDERED: lisinopriL 5 MG TABLET PO STA (04:29)
[2021-08-31] MEDS ORDERED: amLODIPine 5 MG TABLET PO STA (04:29)
[2021-08-31 04:34] LABS: Influenza A PCR Negative (Negative); Influenza B PCR Negative (Negative); Resp. Syncytial Virus PCR Negative (Negative)
[2021-08-31 05:14] LABS: SARS-CoV-2 by PCR (In House) Negative (Negative)
[2021-08-31] MEDS ORDERED: Insulin NPH 100 UNIT/ML (x5UNIT) SUBQ ONE (07:31)
[2021-08-31] MEDS ORDERED: Insulin Regular, Human 100 UNIT/ML SUBQ ONE (08:23)
[2021-08-31] MEDS ORDERED: *HR* Insulin Regular U-500 500 UNIT/ML SUBQ SCH (08:30)
[2021-08-31] MEDS ORDERED: Naloxone 0.4 MG/ML INJ IVP PRN (12:20)
[2021-08-31] MEDS ORDERED: Dextrose Gel 15 GM/37.5 ML TUBE PO PRN ×2 (12:21)
[2021-08-31] MEDS ORDERED: D5% in Water 1,000 ML IVC PRN (12:21)
[2021-08-31] MEDS ORDERED: *HR* Dextrose 50 % in Water (Syg) 50 ML SYRINGE IVP PRN (12:21)
[2021-08-31] MEDS ORDERED: 0.9 % Sodium Chloride 1,000 ML IVC SCH (13:00)
[2021-08-31] MEDS: Gabapentin 400 MG CAPSULE PO SCH (17:00)
[2021-08-31] MEDS: *HR* Heparin 5,000 UNIT/ML VIAL SQ SCH ×2 (17:00→21:14)
[2021-08-31] MEDS: Insulin LISPRO 300 UNITS/3 ML VIAL SUBQ SCH ×4 (17:01→21:15)
[2021-08-31] MEDS: Insulin DETEMIR 100 UNIT/ML X5UNITS SUBQ SCH (17:11)
[2021-08-31 17:55] LABS: BUN/Creatinine Ratio 19 (6-26); Blood Urea Nitrogen 18 mg/dL (6-20); Calcium 8.4 mg/dL (8.6-10.3); Carbon Dioxide 23 mEq/L (23-29); Chloride 105 mEq/L (98-107); Glucose 315 mg/dL (70-105); Magnesium 1.8 mg/dL (1.6-2.6); Osmolality,Calculated 292 (280-300); Phosphorous 4.1 mg/dL (2.7-4.5); Potassium 4.8 mEq/L (3.5-5.1); Sodium 134 mEq/L (136-145); eGFR For African Americans > 60 (> 60); eGFR For Non-African Americans > 60 (> 60)
[2021-08-31] MEDS ORDERED: Gabapentin 300 MG CAPSULE PO SCH (21:00)
[2021-09-01 02:15] LABS: Basophils % 0.6 %; Eosinophils # 0.2 K/mcL (0.0-0.6); Eosinophils % 3.5 %; Hematocrit 36.5 % (35.3-44.9); Immature Granulocytes % 0.5 % (0-4); Lymphocytes # 2.4 K/mcL (0.6-4.6); Lymphocytes % 37.4 %; Mean Corpuscular Hemoglobin 29.9 pg (28.0-33.3); Mean Platelet Volume 11.1 fL (9.4-12.4); Monocytes # 0.3 K/mcL (0.0-1.3); Monocytes % 4.2 %; Neutrophils # 3.4 K/mcL (1.6-8.9); Platelet Count 225 K/mcL (140-400); Red Blood Count 4.15 M/mcL (3.82-4.97); Red Cell Distribution Width 13.1 % (11.5-14.5); Segmented Neutrophils % 53.8 %; White Blood Count 6.4 K/mcL (4.3-11.1)
[2021-09-01 02:32] LABS: Hemoglobin 12.4 g/dL (11.5-15.4)
[2021-09-01 02:34] LABS: BUN/Creatinine Ratio 26 (6-26); Blood Urea Nitrogen 26 mg/dL (6-20); Calcium 8.3 mg/dL (8.6-10.3); Carbon Dioxide 22 mEq/L (23-29); Chloride 106 mEq/L (98-107); Glucose 192 mg/dL (70-105); Magnesium 1.8 mg/dL (1.6-2.6); Osmolality,Calculated 290 (280-300); Phosphorous 3.9 mg/dL (2.7-4.5); Potassium 4.1 mEq/L (3.5-5.1); Sodium 135 mEq/L (136-145); eGFR For African Americans > 60 (> 60); eGFR For Non-African Americans 59 (> 60)
[2021-09-01] MEDS: *HR* Heparin 5,000 UNIT/ML VIAL SQ SCH ×3 (05:45→21:55)
[2021-09-01] MEDS: Insulin LISPRO 300 UNITS/3 ML VIAL SUBQ SCH ×6 (07:36→20:53)
[2021-09-01] MEDS: Gabapentin 400 MG CAPSULE PO SCH ×3 (07:37→21:57)
[2021-09-01] MEDS: Aspirin 81 MG TAB.CHEW PO SCH (07:37)
[2021-09-01] MEDS: Insulin DETEMIR 100 UNIT/ML X5UNITS SUBQ SCH (07:37)
[2021-09-01] MEDS ORDERED: hydrOXYzine pamoate 25 MG CAPSULE PO PRN (09:06)
[2021-09-01] MEDS ORDERED: Perflutren Lipid Microsphere 1.3 ML in 0.9 % Sodium Chloride 8.7 ML IVP PRN (09:17)
[2021-09-01] MEDS: Isosorbide MONOnitrate (24 HR) 30 MG TAB.ER.24H PO SCH (09:32)
[2021-09-01] MEDS: Metoprolol XL (24 HR) Succ 25 MG TAB.ER.24H PO SCH (09:32)
[2021-09-01] MEDS: amLODIPine 5 MG TABLET PO SCH (09:33)
[2021-09-01] MEDS: lisinopriL 5 MG TABLET PO SCH (09:33)
[2021-09-01] MEDS ORDERED: Ondansetron 4 MG/2 ML VIAL IVP ONE (11:45)
[2021-09-01] MEDS: traZODone 50 MG TABLET PO PRN (23:23)
[2021-09-02 01:21] LABS: BUN/Creatinine Ratio 36 (6-26); Blood Urea Nitrogen 40 mg/dL (6-20); Calcium 8.6 mg/dL (8.6-10.3); Carbon Dioxide 27 mEq/L (23-29); Chloride 105 mEq/L (98-107); Glucose 100 mg/dL (70-105); Magnesium 1.9 mg/dL (1.6-2.6); Osmolality,Calculated 294 (280-300); Phosphorous 6.3 mg/dL (2.7-4.5); Potassium 4.7 mEq/L (3.5-5.1); Sodium 137 mEq/L (136-145); eGFR For African Americans > 60 (> 60); eGFR For Non-African Americans 53 (> 60)
[2021-09-02] MEDS: *HR* Heparin 5,000 UNIT/ML VIAL SQ SCH ×3 (06:08→21:00)
[2021-09-02] MEDS ORDERED: Regadenoson 0.4 MG/5 ML SYRINGE IVP ONE (06:23)
[2021-09-02] MEDS: Insulin LISPRO 300 UNITS/3 ML VIAL SUBQ SCH ×7 (09:22→20:02)
[2021-09-02] MEDS: Isosorbide MONOnitrate (24 HR) 30 MG TAB.ER.24H PO SCH (09:46)
[2021-09-02] MEDS: Aspirin 81 MG TAB.CHEW PO SCH (09:46)
[2021-09-02] MEDS: amLODIPine 5 MG TABLET PO SCH (09:46)
[2021-09-02] MEDS: lisinopriL 5 MG TABLET PO SCH (09:46)
[2021-09-02] MEDS: Metoprolol XL (24 HR) Succ 25 MG TAB.ER.24H PO SCH (09:46)
[2021-09-02] MEDS: Insulin DETEMIR 100 UNIT/ML X5UNITS SUBQ SCH (09:48)
[2021-09-02] MEDS: Gabapentin 400 MG CAPSULE PO SCH ×3 (09:48→20:16)
[2021-09-02] MEDS: Nitroglycerin 0.4 MG TAB.SUBL SL PRN ×2 (23:08→23:27)
[2021-09-03] MEDS: *HR* Heparin 5,000 UNIT/ML VIAL SQ SCH ×3 (06:08→21:25)
[2021-09-03] MEDS: Insulin DETEMIR 100 UNIT/ML X5UNITS SUBQ SCH (07:50)
[2021-09-03] MEDS: amLODIPine 5 MG TABLET PO SCH (07:51)
[2021-09-03] MEDS: Isosorbide MONOnitrate (24 HR) 30 MG TAB.ER.24H PO SCH (07:51)
[2021-09-03] MEDS: Metoprolol XL (24 HR) Succ 25 MG TAB.ER.24H PO SCH (07:51)
[2021-09-03] MEDS: Aspirin 81 MG TAB.CHEW PO SCH (07:51)
[2021-09-03] MEDS: lisinopriL 5 MG TABLET PO SCH (07:51)
[2021-09-03] MEDS: Insulin LISPRO 300 UNITS/3 ML VIAL SUBQ SCH ×7 (07:52→21:17)
[2021-09-03] MEDS: Gabapentin 400 MG CAPSULE PO SCH ×3 (09:35→21:24)
[2021-09-03] MEDS: traZODone 50 MG TABLET PO PRN (21:22)
[2021-09-04] MEDS: *HR* Heparin 5,000 UNIT/ML VIAL SQ SCH (06:11)
[2021-09-04] MEDS: amLODIPine 5 MG TABLET PO SCH (08:32)
[2021-09-04] MEDS: Aspirin 81 MG TAB.CHEW PO SCH (08:32)
[2021-09-04] MEDS: lisinopriL 5 MG TABLET PO SCH (08:32)
[2021-09-04] MEDS: Isosorbide MONOnitrate (24 HR) 30 MG TAB.ER.24H PO SCH (08:32)
[2021-09-04] MEDS: Gabapentin 400 MG CAPSULE PO SCH (08:32)
[2021-09-04] MEDS: Metoprolol XL (24 HR) Succ 25 MG TAB.ER.24H PO SCH (08:32)
[2021-09-04] MEDS: Insulin DETEMIR 100 UNIT/ML X5UNITS SUBQ SCH (08:38)
[2021-09-04] MEDS: Insulin LISPRO 300 UNITS/3 ML VIAL SUBQ SCH ×4 (08:40→12:24)
[2021-09-04] MEDS ORDERED: Fenofibrate 54 MG TABLET PO SCH (09:00)
[2021-09-04 11:51] VITALS: BP 99/61; PULSE 74; TEMP 97.9; O2SAT 91
[2021-09-04] MEDS ORDERED: FLU Vac QV 21-22 (6Month+)/PF 0.5 ML SYRINGE IM ONE (13:04)
== END 2021-09-04 14:30 | DRG 638 ==
LOC: 3ANU 16:24 → EMEROOARM 16:24 → SUATTDRO 08-31 14:04 → 3ANU 08-31 15:43 → SUATTDRO 09-01 09:21
PROVIDERS: ADMIT Family Medicine; ATTEND Student in an Organized Health Care Education/Training Program

== ENCOUNTER 2021-09-04 14:29 | Inpatient (IN) ==
[2021-09-04] MEDS ORDERED: *HR* LORazepam 2 MG/ML VIAL IM PRN (15:28)
[2021-09-04] MEDS ORDERED: *HR* LORazepam 1 MG TABLET PO PRN (15:28)
[2021-09-04] MEDS ORDERED: Mag Hydrox/Al Hydrox/Simeth 30 ML UDC PO PRN (15:28)
[2021-09-04] MEDS ORDERED: Ibuprofen 400 MG TABLET PO PRN (15:28)
[2021-09-04] MEDS ORDERED: MOM Conc 10 ML UD.LIQ PO PRN (15:28)
[2021-09-04] MEDS ORDERED: haloperidoL 5 MG TABLET PO PRN (15:28)
[2021-09-04] MEDS ORDERED: Haloperidol Lactate 5 MG/ML VIAL IM PRN (15:28)
[2021-09-04] MEDS ORDERED: Furosemide 20 MG TABLET PO PRN (15:31)
[2021-09-04] MEDS ORDERED: Dextrose Gel 15 GM/37.5 ML TUBE PO PRN ×2 (15:38)
[2021-09-04] MEDS ORDERED: *HR* Dextrose 50 % in Water (Syg) 50 ML SYRINGE IVP PRN (15:38)
[2021-09-04] MEDS ORDERED: D5% in Water 1,000 ML IVC PRN (15:38)
[2021-09-04] MEDS: Insulin LISPRO 300 UNITS/3 ML VIAL SUBQ SCH ×3 (16:50→21:06)
[2021-09-04] MEDS: Gabapentin 400 MG CAPSULE PO SCH (21:03)
[2021-09-04] MEDS: traZODone 50 MG TABLET PO PRN (21:11)
[2021-09-04] MEDS: Insulin DETEMIR 100 UNIT/ML X5UNITS SUBQ SCH (21:13)
[2021-09-05] MEDS: Insulin LISPRO 300 UNITS/3 ML VIAL SUBQ SCH ×7 (09:01→20:16)
[2021-09-05] MEDS: Aspirin 81 MG TAB.CHEW PO SCH (09:02)
[2021-09-05] MEDS: amLODIPine 5 MG TABLET PO SCH (09:02)
[2021-09-05] MEDS: Isosorbide MONOnitrate (24 HR) 30 MG TAB.ER.24H PO SCH (09:03)
[2021-09-05] MEDS: Metoprolol XL (24 HR) Succ 25 MG TAB.ER.24H PO SCH (09:03)
[2021-09-05] MEDS: Fenofibrate 54 MG TABLET PO SCH (09:03)
[2021-09-05] MEDS: Gabapentin 400 MG CAPSULE PO SCH ×3 (09:05→20:13)
[2021-09-05] MEDS: lisinopriL 5 MG TABLET PO SCH (09:55)
[2021-09-05] MEDS: traZODone 50 MG TABLET PO PRN (20:14)
[2021-09-05] MEDS: Insulin DETEMIR 100 UNIT/ML X5UNITS SUBQ SCH (20:15)
[2021-09-06] MEDS: hydrOXYzine pamoate 25 MG CAPSULE PO PRN ×2 (02:05→20:59)
[2021-09-06] MEDS: traZODone 50 MG TABLET PO PRN (02:05)
[2021-09-06] MEDS: Aspirin 81 MG TAB.CHEW PO SCH (09:10)
[2021-09-06] MEDS: lisinopriL 5 MG TABLET PO SCH (09:10)
[2021-09-06] MEDS: Isosorbide MONOnitrate (24 HR) 30 MG TAB.ER.24H PO SCH (09:10)
[2021-09-06] MEDS: amLODIPine 5 MG TABLET PO SCH (09:10)
[2021-09-06] MEDS: Fenofibrate 54 MG TABLET PO SCH (09:10)
[2021-09-06] MEDS: Metoprolol XL (24 HR) Succ 25 MG TAB.ER.24H PO SCH (09:10)
[2021-09-06] MEDS: Insulin LISPRO 300 UNITS/3 ML VIAL SUBQ SCH ×8 (09:12→21:13)
[2021-09-06] MEDS: Gabapentin 400 MG CAPSULE PO SCH ×3 (09:12→20:59)
[2021-09-06] MEDS ORDERED: QUEtiapine Fumarate 25 MG TABLET PO PRN (20:55)
[2021-09-06] MEDS: Insulin DETEMIR 100 UNIT/ML X5UNITS SUBQ SCH (20:59)
[2021-09-07] MEDS: Insulin LISPRO 300 UNITS/3 ML VIAL SUBQ SCH ×6 (08:38→20:13)
[2021-09-07] MEDS: Isosorbide MONOnitrate (24 HR) 30 MG TAB.ER.24H PO SCH (08:54)
[2021-09-07] MEDS: Gabapentin 400 MG CAPSULE PO SCH ×3 (08:54→20:18)
[2021-09-07] MEDS: amLODIPine 5 MG TABLET PO SCH (08:54)
[2021-09-07] MEDS: Metoprolol XL (24 HR) Succ 25 MG TAB.ER.24H PO SCH (08:54)
[2021-09-07] MEDS: Aspirin 81 MG TAB.CHEW PO SCH (08:54)
[2021-09-07] MEDS: lisinopriL 5 MG TABLET PO SCH (08:54)
[2021-09-07] MEDS: Fenofibrate 54 MG TABLET PO SCH (08:55)
[2021-09-07] MEDS: hydrOXYzine pamoate 25 MG CAPSULE PO PRN (20:18)
[2021-09-07] MEDS: Insulin DETEMIR 100 UNIT/ML X5UNITS SUBQ SCH (20:35)
[2021-09-07] MEDS ORDERED: QUEtiapine Fumarate 25 MG TABLET PO SCH (21:00)
[2021-09-08] MEDS: Insulin LISPRO 300 UNITS/3 ML VIAL SUBQ SCH ×3 (08:17→17:16)
[2021-09-08 09:23] VITALS: BP 142/83; PULSE 90; TEMP 97.8; O2SAT 99
[2021-09-08] MEDS: Metoprolol XL (24 HR) Succ 25 MG TAB.ER.24H PO SCH (09:25)
[2021-09-08] MEDS: amLODIPine 5 MG TABLET PO SCH (09:25)
[2021-09-08] MEDS: Fenofibrate 54 MG TABLET PO SCH (09:25)
[2021-09-08] MEDS: lisinopriL 5 MG TABLET PO SCH (09:25)
[2021-09-08] MEDS: Aspirin 81 MG TAB.CHEW PO SCH (09:25)
[2021-09-08] MEDS: Isosorbide MONOnitrate (24 HR) 30 MG TAB.ER.24H PO SCH (09:26)
[2021-09-08] MEDS: Gabapentin 400 MG CAPSULE PO SCH ×2 (09:28→15:15)
[2021-09-08] MEDS: hydrOXYzine pamoate 25 MG CAPSULE PO PRN (17:46)
[2021-09-10] MEDS ORDERED: Dulaglutide [Trulicity] 1.5 MG/0.5 ML Pen.Injctr SQ SCH (15:31)
== END 2021-09-08 18:50 | disposition home or self-care (01) | DRG 885 ==
LOC: 1ANU 14:29
PROVIDERS: ADMIT Psychiatry & Neurology Psychiatry; ATTEND Psychiatry & Neurology Psychiatry

== ENCOUNTER 2021-12-14 23:58 | Inpatient (IN) ==
[2021-12-15 00:46] LABS: Basophils % 0.6 %; Eosinophils # 0.2 K/mcL (0.0-0.6); Eosinophils % 2.8 %; Hematocrit 37.9 % (35.3-44.9); Hemoglobin 12.9 g/dL (11.5-15.4); Immature Granulocytes % 0.3 % (0-4); Lymphocytes # 1.8 K/mcL (0.6-4.6); Lymphocytes % 28.2 %; Mean Corpuscular Volume 88.1 fL (83.0-100.0); Mean Platelet Volume 11.3 fL (9.4-12.4); Monocytes # 0.3 K/mcL (0.0-1.3); Monocytes % 4.4 %; Platelet Count 200 K/mcL (140-400); Red Cell Distribution Width 13.3 % (11.5-14.5); Segmented Neutrophils % 63.7 %; White Blood Count 6.3 K/mcL (4.3-11.1)
[2021-12-15 00:50] LABS: Bilirubin,Urine Negative (Negative); Blood,Urine Trace (Negative); Clarity,Urine Clear (Clear); Color,Urine Colorless (Yellow); Glucose,Urine (UA) >=1000 mg/dL (Normal); Ketones,Urine Negative (Negative); Leukocyte Esterase,Urine Negative (Negative); Mucus,Urine Few per lpf (None-Few); Nitrite,Urine Negative (Negative); Protein,Urine 100 mg/dL (Neg-Trace); Specific Gravity,Urine > 1.030 (1.010-1.025); Squamous Epithelial Cell,Urine Few per hpf (None-Few); Urobilinogen,Urine Normal (Normal); WBC,Urine 0-3 per hpf (0-3)
[2021-12-15 00:55] LABS: Amphetamine Screen,Urine Negative ng/mL (Cutoff=1000); Barbiturate Screen,Urine Negative ng/mL (Cutoff=200); Benzodiazepines Screen,Urine Negative ng/mL (Cutoff=200); Cannabinoid Screen,Urine Negative ng/mL (Cutoff = 50); Cocaine Screen,Urine Negative ng/mL (Cutoff= 300); Opiate Screen,Urine Negative ng/mL (Cutoff=300); Phencyclidine Screen,Urine Negative ng/mL (Cutoff=25)
[2021-12-15 01:20] LABS: Acetaminophen < 10 mcg/mL (10-20); BUN/Creatinine Ratio 19 (6-26); Blood Urea Nitrogen 19 mg/dL (6-20); Calcium 8.5 mg/dL (8.6-10.3); Carbon Dioxide 23 mEq/L (23-29); Chloride 95 mEq/L (98-107); Chol/HDL Ratio 7.4 (0-4.9); Cholesterol 357 mg/dL (< 200); Ethanol < 10 mg/dL (Less than 10); Glucose 740 mg/dL (70-105); HDL Cholesterol 48 mg/dL (40-59); Osmolality,Calculated 302 (280-300); Potassium 4.3 mEq/L (3.5-5.1); Salicylate < 2.5 mg/dL (15.0-30.0); Sodium 127 mEq/L (136-145); Triglycerides 528 mg/dL (< 150); eGFR For African Americans > 60 (> 60); eGFR For Non-African Americans 59 (> 60)
[2021-12-15 01:40] LABS: Estimated Average Glucose 321 mg/dl; Hemoglobin A1C 12.8 %
[2021-12-15] MEDS: 0.9 % Sodium Chloride 1,000 ML IVC SCH ×2 (01:47→02:57)
[2021-12-15] MEDS ORDERED: 0.9 % Sodium Chloride 1,000 ML IVC ONE (03:56)
[2021-12-15] MEDS ORDERED: Insulin Human Regular 5 UNIT in 0.9 % Sodium Chloride 10 ML IV ONE (03:56)
[2021-12-15] MEDS ORDERED: Insulin Human Regular 3 UNIT in 0.9 % Sodium Chloride 10 ML IV ONE (05:45)
[2021-12-15] MEDS ORDERED: Insulin DETEMIR 100 UNIT/ML X5UNITS SUBQ ONE (12:57)
[2021-12-15] MEDS ORDERED: D5% in Water 1,000 ML IVC PRN (13:00)
[2021-12-15] MEDS ORDERED: *HR* Dextrose 50 % in Water (Syg) 50 ML SYRINGE IVP PRN (13:00)
[2021-12-15] MEDS ORDERED: Dextrose Gel 15 GM/37.5 ML TUBE PO PRN ×2 (13:00)
[2021-12-15 15:49] LABS: Influenza A PCR Negative (Negative); Influenza B PCR Negative (Negative); Resp. Syncytial Virus PCR Negative (Negative)
[2021-12-15 15:50] LABS: SARS-CoV-2 by PCR (In House) Negative (Negative)
[2021-12-15] MEDS ORDERED: *HR* LORazepam 1 MG TABLET PO PRN (16:34)
[2021-12-15] MEDS ORDERED: *HR* LORazepam 2 MG/ML VIAL IM PRN (16:34)
[2021-12-15] MEDS ORDERED: haloperidoL 5 MG TABLET PO PRN (16:34)
[2021-12-15] MEDS ORDERED: Haloperidol Lactate 5 MG/ML VIAL IM PRN (16:34)
[2021-12-15] MEDS ORDERED: cloNIDine HCL 0.1 MG TABLET PO ONE (20:54)
[2021-12-15] MEDS ORDERED: amLODIPine 5 MG TABLET PO ONE (21:00)
[2021-12-15] MEDS: Gabapentin 400 MG CAPSULE PO SCH (21:13)
[2021-12-15] MEDS: Ibuprofen 400 MG TABLET PO PRN (21:14)
[2021-12-15] MEDS: hydrOXYzine pamoate 25 MG CAPSULE PO PRN (21:15)
[2021-12-15] MEDS: QUEtiapine Fumarate 100 MG TABLET PO SCH (21:15)
[2021-12-15] MEDS: Insulin DETEMIR 100 UNIT/ML X5UNITS SUBQ SCH (21:16)
[2021-12-15] MEDS: Budesonide/Formoterol 80/4.5 1 PUFF INH IH SCH (21:18)
[2021-12-16] MEDS: Insulin Regular, Human 100 UNIT/ML SUBQ SCH ×3 (01:26→12:23)
[2021-12-16] MEDS: Aspirin 81 MG TAB.CHEW PO SCH (08:34)
[2021-12-16] MEDS: amLODIPine 5 MG TABLET PO SCH (08:34)
[2021-12-16] MEDS: Isosorbide MONOnitrate (24 HR) 30 MG TAB.ER.24H PO SCH (08:34)
[2021-12-16] MEDS: Metoprolol XL (24 HR) Succ 25 MG TAB.ER.24H PO SCH (08:34)
[2021-12-16] MEDS: Fenofibrate 54 MG TABLET PO SCH (08:34)
[2021-12-16] MEDS: lisinopriL 5 MG TABLET PO SCH (08:34)
[2021-12-16] MEDS: Gabapentin 400 MG CAPSULE PO SCH ×3 (10:07→21:11)
[2021-12-16] MEDS: Budesonide/Formoterol 80/4.5 1 PUFF INH IH SCH ×2 (10:07→22:00)
[2021-12-16] MEDS ORDERED: Mag Hydrox/Al Hydrox/Simeth 30 ML UDC PO PRN (11:18)
[2021-12-16] MEDS ORDERED: MOM Conc 10 ML UD.LIQ PO PRN (11:18)
[2021-12-16] MEDS: Furosemide 20 MG TABLET PO PRN (14:23)
[2021-12-16] MEDS: Insulin LISPRO 300 UNITS/3 ML VIAL SUBQ SCH (17:14)
[2021-12-16] MEDS: Insulin DETEMIR 100 UNIT/ML X5UNITS SUBQ SCH (21:07)
[2021-12-16] MEDS: hydrOXYzine pamoate 25 MG CAPSULE PO PRN (21:11)
[2021-12-16] MEDS: QUEtiapine Fumarate 100 MG TABLET PO SCH (21:11)
[2021-12-16] MEDS: Ibuprofen 400 MG TABLET PO PRN (21:11)
[2021-12-17] MEDS: Insulin LISPRO 300 UNITS/3 ML VIAL SUBQ SCH ×3 (08:01→17:10)
[2021-12-17] MEDS: Aspirin 81 MG TAB.CHEW PO SCH (08:03)
[2021-12-17] MEDS: Fenofibrate 54 MG TABLET PO SCH (08:03)
[2021-12-17] MEDS: lisinopriL 5 MG TABLET PO SCH (08:04)
[2021-12-17] MEDS: amLODIPine 5 MG TABLET PO SCH (08:04)
[2021-12-17] MEDS: Ibuprofen 400 MG TABLET PO PRN (08:04)
[2021-12-17] MEDS: Isosorbide MONOnitrate (24 HR) 30 MG TAB.ER.24H PO SCH (08:04)
[2021-12-17] MEDS: Metoprolol XL (24 HR) Succ 25 MG TAB.ER.24H PO SCH (08:04)
[2021-12-17] MEDS: Gabapentin 400 MG CAPSULE PO SCH ×3 (08:07→20:09)
[2021-12-17] MEDS ORDERED: (Dulaglutide [Trulicity] 1.5 MG/0.5 ML Pen.Injctr) SUBQ SCH (09:00)
[2021-12-17] MEDS: Budesonide/Formoterol 80/4.5 1 PUFF INH IH SCH ×2 (12:29→20:06)
[2021-12-17] MEDS: Furosemide 20 MG TABLET PO PRN (19:59)
[2021-12-17] MEDS: hydrOXYzine pamoate 25 MG CAPSULE PO PRN (20:05)
[2021-12-17] MEDS: QUEtiapine Fumarate 100 MG TABLET PO SCH (20:05)
[2021-12-17] MEDS: Insulin DETEMIR 100 UNIT/ML X5UNITS SUBQ SCH (20:32)
[2021-12-18] MEDS: Budesonide/Formoterol 80/4.5 1 PUFF INH IH SCH ×2 (08:44→21:39)
[2021-12-18] MEDS: Insulin LISPRO 300 UNITS/3 ML VIAL SUBQ SCH ×3 (08:46→16:50)
[2021-12-18] MEDS: Aspirin 81 MG TAB.CHEW PO SCH (08:47)
[2021-12-18] MEDS: amLODIPine 5 MG TABLET PO SCH (08:47)
[2021-12-18] MEDS: Fenofibrate 54 MG TABLET PO SCH (08:47)
[2021-12-18] MEDS: lisinopriL 5 MG TABLET PO SCH (08:48)
[2021-12-18] MEDS: Isosorbide MONOnitrate (24 HR) 30 MG TAB.ER.24H PO SCH (08:48)
[2021-12-18] MEDS: Metoprolol XL (24 HR) Succ 25 MG TAB.ER.24H PO SCH (08:48)
[2021-12-18] MEDS: Gabapentin 400 MG CAPSULE PO SCH ×3 (08:55→21:31)
[2021-12-18] MEDS: Furosemide 20 MG TABLET PO PRN (14:51)
[2021-12-18] MEDS: QUEtiapine Fumarate 100 MG TABLET PO SCH (21:30)
[2021-12-18] MEDS: Insulin DETEMIR 100 UNIT/ML X5UNITS SUBQ SCH (21:32)
[2021-12-19] MEDS: Gabapentin 400 MG CAPSULE PO SCH ×3 (08:44→20:27)
[2021-12-19] MEDS: Fenofibrate 54 MG TABLET PO SCH (08:45)
[2021-12-19] MEDS: Aspirin 81 MG TAB.CHEW PO SCH (08:45)
[2021-12-19] MEDS: lisinopriL 5 MG TABLET PO SCH (08:45)
[2021-12-19] MEDS: Isosorbide MONOnitrate (24 HR) 30 MG TAB.ER.24H PO SCH (08:45)
[2021-12-19] MEDS: Metoprolol XL (24 HR) Succ 25 MG TAB.ER.24H PO SCH (08:45)
[2021-12-19] MEDS: amLODIPine 5 MG TABLET PO SCH (08:45)
[2021-12-19] MEDS: Insulin LISPRO 300 UNITS/3 ML VIAL SUBQ SCH ×3 (09:55→16:30)
[2021-12-19] MEDS: Budesonide/Formoterol 80/4.5 1 PUFF INH IH SCH ×2 (11:05→20:33)
[2021-12-19] MEDS: Ibuprofen 400 MG TABLET PO PRN (12:29)
[2021-12-19] MEDS: hydrOXYzine pamoate 25 MG CAPSULE PO PRN (17:31)
[2021-12-19] MEDS: Insulin DETEMIR 100 UNIT/ML X5UNITS SUBQ SCH (20:27)
[2021-12-19] MEDS: QUEtiapine Fumarate 100 MG TABLET PO SCH (20:27)
[2021-12-20] MEDS: Insulin LISPRO 300 UNITS/3 ML VIAL SUBQ SCH ×3 (08:12→17:14)
[2021-12-20] MEDS: Aspirin 81 MG TAB.CHEW PO SCH (08:32)
[2021-12-20] MEDS: Fenofibrate 54 MG TABLET PO SCH (08:32)
[2021-12-20] MEDS: amLODIPine 5 MG TABLET PO SCH (08:32)
[2021-12-20] MEDS: Isosorbide MONOnitrate (24 HR) 30 MG TAB.ER.24H PO SCH (08:32)
[2021-12-20] MEDS: lisinopriL 5 MG TABLET PO SCH (08:32)
[2021-12-20] MEDS: Metoprolol XL (24 HR) Succ 25 MG TAB.ER.24H PO SCH (08:33)
[2021-12-20] MEDS: Gabapentin 400 MG CAPSULE PO SCH ×3 (08:34→21:01)
[2021-12-20] MEDS: Budesonide/Formoterol 80/4.5 1 PUFF INH IH SCH ×2 (11:21→21:03)
[2021-12-20] MEDS: hydrOXYzine pamoate 25 MG CAPSULE PO PRN (16:16)
[2021-12-20] MEDS: QUEtiapine Fumarate 100 MG TABLET PO SCH (20:57)
[2021-12-20] MEDS: Insulin DETEMIR 100 UNIT/ML X5UNITS SUBQ SCH (21:35)
[2021-12-21] MEDS: Insulin LISPRO 300 UNITS/3 ML VIAL SUBQ SCH ×3 (08:39→16:59)
[2021-12-21] MEDS: Fenofibrate 54 MG TABLET PO SCH (08:41)
[2021-12-21] MEDS: Metoprolol XL (24 HR) Succ 25 MG TAB.ER.24H PO SCH (08:41)
[2021-12-21] MEDS: Isosorbide MONOnitrate (24 HR) 30 MG TAB.ER.24H PO SCH (08:41)
[2021-12-21] MEDS: lisinopriL 5 MG TABLET PO SCH (08:42)
[2021-12-21] MEDS: amLODIPine 5 MG TABLET PO SCH (08:42)
[2021-12-21] MEDS: Aspirin 81 MG TAB.CHEW PO SCH (08:42)
[2021-12-21] MEDS: Gabapentin 400 MG CAPSULE PO SCH ×3 (08:44→19:51)
[2021-12-21 08:55] VITALS: TEMP 98.7
[2021-12-21] MEDS: Budesonide/Formoterol 80/4.5 1 PUFF INH IH SCH (10:52)
[2021-12-21] MEDS: QUEtiapine Fumarate 100 MG TABLET PO SCH (19:49)
[2021-12-21] MEDS: Insulin DETEMIR 100 UNIT/ML X5UNITS SUBQ SCH (19:57)
[2021-12-21 20:24] VITALS: BP 133/80; PULSE 84; O2SAT 97
== END 2021-12-21 20:45 | disposition home or self-care (01) | DRG 885 ==
LOC: EMEROOARM 23:58 → 1ANU 12-15 17:24
PROVIDERS: ADMIT Psychiatry & Neurology Psychiatry; ATTEND Psychiatry & Neurology Psychiatry

== ENCOUNTER 2022-04-28 04:43 | Inpatient (IN) ==
[2022-04-28] MEDS ORDERED: Naloxone 0.4 MG/ML INJ IVP PRN ×2 (13:55→14:07)
[2022-04-28] MEDS ORDERED: D5% in Water 1,000 ML IVC PRN (15:15)
[2022-04-28] MEDS ORDERED: Dextrose Gel 15 GM/37.5 ML TUBE PO PRN ×2 (15:15)
[2022-04-28] MEDS ORDERED: *HR* Dextrose 50 % in Water (Syg) 50 ML SYRINGE IVP PRN (15:15)
[2022-04-28] MEDS ORDERED: *HR* HYDROcodone/Acet 5/325 mg TABLET PO PRN (15:17)
[2022-04-28] MEDS: Nitroglycerin 0.4 MG TAB.SUBL SL PRN ×3 (15:48→16:05)
[2022-04-28] MEDS: Morphine Sulfate 2 MG/ML SYRINGE IVP PRN (16:39)
[2022-04-28] MEDS: Aspirin 81 MG TAB.CHEW PO SCH (17:05)
[2022-04-28] MEDS: Insulin LISPRO 300 UNITS/3 ML VIAL SUBQ SCH ×2 (17:06→21:02)
[2022-04-28] MEDS ORDERED: hydrOXYzine pamoate 25 MG CAPSULE PO PRN (17:20)
[2022-04-28] MEDS ORDERED: *HR* Labetalol 20 MG/4 ML SYRINGE IVP PRN (17:24)
[2022-04-28] MEDS: Metoprolol XL (24 HR) Succ 25 MG TAB.ER.24H PO SCH (17:51)
[2022-04-28] MEDS: Gabapentin 300 MG CAPSULE PO SCH ×2 (18:21→20:29)
[2022-04-28] MEDS: lisinopriL 5 MG TABLET PO SCH (18:54)
[2022-04-28] MEDS: amLODIPine 5 MG TABLET PO SCH (18:54)
[2022-04-28] MEDS: Budesonide/Formoterol 80/4.5 1 PUFF INH IH SCH (19:44)
[2022-04-28] MEDS: QUEtiapine Fumarate 100 MG TABLET PO SCH (20:30)
[2022-04-28] MEDS: Topiramate 25 MG TABLET PO SCH (20:30)
[2022-04-28] MEDS: Furosemide 20 MG/2 ML VIAL IVP SCH (20:35)
[2022-04-28] MEDS: Insulin DETEMIR 100 UNIT/ML X5UNITS SUBQ SCH (21:02)
[2022-04-28 21:39] LABS: Amphetamine Screen,Urine Negative ng/mL (Cutoff=1000); Barbiturate Screen,Urine Negative ng/mL (Cutoff=200); Benzodiazepines Screen,Urine Negative ng/mL (Cutoff=200); Cannabinoid Screen,Urine Negative ng/mL (Cutoff = 50); Cocaine Screen,Urine Negative ng/mL (Cutoff= 300); Opiate Screen,Urine Positive ng/mL (Cutoff=300); Phencyclidine Screen,Urine Negative ng/mL (Cutoff=25)
[2022-04-29 03:09] LABS: Basophils % 0.7 %; Eosinophils # 0.2 K/mcL (0.0-0.6); Eosinophils % 2.7 %; Hematocrit 31.8 % (35.3-44.9); Hemoglobin 10.5 g/dL (11.5-15.4); Immature Granulocytes % 0.5 % (0-4); Lymphocytes # 1.9 K/mcL (0.6-4.6); Lymphocytes % 32.1 %; Mean Corpuscular Hemoglobin 30.1 pg (28.0-33.3); Mean Corpuscular Volume 91.1 fL (83.0-100.0); Mean Platelet Volume 10.6 fL (9.4-12.4); Monocytes # 0.2 K/mcL (0.0-1.3); Monocytes % 3.9 %; Neutrophils # 3.5 K/mcL (1.6-8.9); Platelet Count 188 K/mcL (140-400); Red Blood Count 3.49 M/mcL (3.82-4.97); Red Cell Distribution Width 14.1 % (11.5-14.5); Segmented Neutrophils % 60.1 %; White Blood Count 5.9 K/mcL (4.3-11.1)
[2022-04-29 03:42] LABS: Albumin 2.7 g/dL (3.5-5.7); Albumin/Globulin Ratio 1.2 (1.1-2.2); Bilirubin,Total 0.2 mg/dL (0.3-1.0); Calcium 8.2 mg/dL (8.6-10.3); Globulin 2.3 g/dL (2.4-3.5); Magnesium 1.9 mg/dL (1.6-2.6); Potassium 4.1 mEq/L (3.5-5.1)
[2022-04-29 05:50] LABS: Prothrombin Time 10.8 Seconds (9.4-12.1)
[2022-04-29] MEDS: Budesonide/Formoterol 80/4.5 1 PUFF INH IH SCH ×2 (08:12→21:26)
[2022-04-29] MEDS: Metoprolol XL (24 HR) Succ 25 MG TAB.ER.24H PO SCH (08:46)
[2022-04-29] MEDS: Isosorbide MONOnitrate (24 HR) 30 MG TAB.ER.24H PO SCH (08:46)
[2022-04-29] MEDS: Insulin LISPRO 300 UNITS/3 ML VIAL SUBQ SCH ×4 (08:47→21:15)
[2022-04-29] MEDS: Aspirin 81 MG TAB.CHEW PO SCH (08:47)
[2022-04-29] MEDS: amLODIPine 5 MG TABLET PO SCH (08:47)
[2022-04-29] MEDS: Topiramate 25 MG TABLET PO SCH ×2 (08:47→20:55)
[2022-04-29] MEDS: Gabapentin 300 MG CAPSULE PO SCH ×3 (08:47→20:55)
[2022-04-29] MEDS: lisinopriL 5 MG TABLET PO SCH (08:47)
[2022-04-29] MEDS: Furosemide 20 MG/2 ML VIAL IVP SCH ×2 (08:51→20:57)
[2022-04-29] MEDS ORDERED: Aspirin 81 MG TAB.CHEW PO SCH (09:00)
[2022-04-29] MEDS: Ondansetron 4 MG/2 ML VIAL IVP PRN (12:42)
[2022-04-29] MEDS: QUEtiapine Fumarate 100 MG TABLET PO SCH (20:56)
[2022-04-29] MEDS: Nitroglycerin 0.4 MG TAB.SUBL SL PRN (21:08)
[2022-04-29] MEDS: Insulin DETEMIR 100 UNIT/ML X5UNITS SUBQ SCH (21:13)
[2022-04-29] MEDS: Morphine Sulfate 2 MG/ML SYRINGE IVP PRN (22:06)
[2022-04-30 04:38] LABS: Hematocrit 29.3 % (35.3-44.9); Hemoglobin 9.7 g/dL (11.5-15.4); Mean Corpuscular HGB Conc 33.1 g/dL (31.6-35.5); Mean Corpuscular Hemoglobin 29.4 pg (28.0-33.3); Mean Corpuscular Volume 88.8 fL (83.0-100.0); Mean Platelet Volume 11.1 fL (9.4-12.4); Platelet Count 201 K/mcL (140-400); Red Cell Distribution Width 13.7 % (11.5-14.5); White Blood Count 6.7 K/mcL (4.3-11.1)
[2022-04-30 05:00] LABS: Albumin 2.6 g/dL (3.5-5.7); Calcium 8.4 mg/dL (8.6-10.3); Potassium 4.5 mEq/L (3.5-5.1); Troponin I 0.03 ng/mL (< 0.04)
[2022-04-30] MEDS ORDERED: Albumin 25% 25gram/100mL 25 GM/100 ML IV.SOLN IVPB ONE (05:35)
[2022-04-30] MEDS: Budesonide/Formoterol 80/4.5 1 PUFF INH IH SCH ×2 (07:52→20:46)
[2022-04-30] MEDS: Insulin LISPRO 300 UNITS/3 ML VIAL SUBQ SCH ×4 (07:53→21:53)
[2022-04-30] MEDS: lisinopriL 5 MG TABLET PO SCH (08:16)
[2022-04-30] MEDS: Gabapentin 300 MG CAPSULE PO SCH ×3 (08:17→22:09)
[2022-04-30] MEDS: Aspirin 81 MG TAB.CHEW PO SCH (08:17)
[2022-04-30] MEDS: Metoprolol XL (24 HR) Succ 25 MG TAB.ER.24H PO SCH (08:17)
[2022-04-30] MEDS: Topiramate 25 MG TABLET PO SCH ×2 (08:17→22:09)
[2022-04-30] MEDS: Isosorbide MONOnitrate (24 HR) 30 MG TAB.ER.24H PO SCH (08:18)
[2022-04-30] MEDS: Furosemide 20 MG/2 ML VIAL IVP SCH (08:19)
[2022-04-30] MEDS: amLODIPine 5 MG TABLET PO SCH (08:19)
[2022-04-30] MEDS ORDERED: 0.9 % Sodium Chloride 1,000 ML IVC SCH (11:15)
[2022-04-30] MEDS ORDERED: 0.9 % Sodium Chloride 500 ML IVC SCH (11:15)
[2022-04-30 12:51] LABS: Basophils % 0.6 %; Eosinophils # 0.2 K/mcL (0.0-0.6); Hematocrit 27.7 % (35.3-44.9); Hemoglobin 9.2 g/dL (11.5-15.4); Immature Granulocytes % 0.7 % (0-4); Lymphocytes # 1.8 K/mcL (0.6-4.6); Lymphocytes % 26.1 %; Mean Corpuscular HGB Conc 33.2 g/dL (31.6-35.5); Mean Corpuscular Hemoglobin 30.1 pg (28.0-33.3); Mean Corpuscular Volume 90.5 fL (83.0-100.0); Monocytes # 0.3 K/mcL (0.0-1.3); Monocytes % 4.3 %; Neutrophils # 4.4 K/mcL (1.6-8.9); Platelet Count 186 K/mcL (140-400); Red Blood Count 3.06 M/mcL (3.82-4.97); Red Cell Distribution Width 13.7 % (11.5-14.5); Segmented Neutrophils % 65.3 %; White Blood Count 6.8 K/mcL (4.3-11.1)
[2022-04-30] MEDS: Ondansetron 4 MG/2 ML VIAL IVP PRN (13:03)
[2022-04-30 13:14] LABS: Calcium 8.6 mg/dL (8.6-10.3); Potassium 4.4 mEq/L (3.5-5.1)
[2022-04-30] MEDS: Insulin DETEMIR 100 UNIT/ML X5UNITS SUBQ SCH (22:09)
[2022-04-30] MEDS: QUEtiapine Fumarate 100 MG TABLET PO SCH (22:09)
[2022-05-01 04:14] LABS: Basophils % 0.6 %; Eosinophils # 0.2 K/mcL (0.0-0.6); Hematocrit 28.2 % (35.3-44.9); Hemoglobin 9.3 g/dL (11.5-15.4); Immature Granulocytes % 0.4 % (0-4); Lymphocytes # 2.5 K/mcL (0.6-4.6); Lymphocytes % 35.4 %; Mean Corpuscular Hemoglobin 29.6 pg (28.0-33.3); Mean Corpuscular Volume 89.8 fL (83.0-100.0); Mean Platelet Volume 11.2 fL (9.4-12.4); Monocytes # 0.3 K/mcL (0.0-1.3); Monocytes % 4.7 %; Neutrophils # 3.9 K/mcL (1.6-8.9); Platelet Count 201 K/mcL (140-400); Red Blood Count 3.14 M/mcL (3.82-4.97); Red Cell Distribution Width 13.7 % (11.5-14.5); Segmented Neutrophils % 55.9 %
[2022-05-01 04:32] LABS: Calcium 8.5 mg/dL (8.6-10.3); Potassium 4.4 mEq/L (3.5-5.1)
[2022-05-01] MEDS: Budesonide/Formoterol 80/4.5 1 PUFF INH IH SCH ×2 (07:21→20:30)
[2022-05-01] MEDS: Insulin LISPRO 300 UNITS/3 ML VIAL SUBQ SCH ×4 (07:37→20:46)
[2022-05-01] MEDS: Nitroglycerin 0.4 MG TAB.SUBL SL PRN (08:25)
[2022-05-01] MEDS: lisinopriL 5 MG TABLET PO SCH (10:05)
[2022-05-01] MEDS: Isosorbide MONOnitrate (24 HR) 30 MG TAB.ER.24H PO SCH (10:08)
[2022-05-01] MEDS: Gabapentin 300 MG CAPSULE PO SCH ×3 (10:08→20:49)
[2022-05-01] MEDS: Topiramate 25 MG TABLET PO SCH ×2 (10:08→20:50)
[2022-05-01] MEDS: Metoprolol XL (24 HR) Succ 25 MG TAB.ER.24H PO SCH (10:09)
[2022-05-01] MEDS: Aspirin 81 MG TAB.CHEW PO SCH (10:09)
[2022-05-01] MEDS ORDERED: 0.9 % Sodium Chloride 500 ML IVC SCH (15:45)
[2022-05-01] MEDS: Insulin DETEMIR 100 UNIT/ML X5UNITS SUBQ SCH (20:47)
[2022-05-01] MEDS: QUEtiapine Fumarate 100 MG TABLET PO SCH (20:50)
[2022-05-02 03:41] LABS: Basophils # 0.1 K/mcL (0.0-0.2); Basophils % 0.9 %; Eosinophils # 0.3 K/mcL (0.0-0.6); Eosinophils % 3.7 %; Hematocrit 28.9 % (35.3-44.9); Hemoglobin 9.5 g/dL (11.5-15.4); Immature Granulocytes % 0.4 % (0-4); Lymphocytes # 2.3 K/mcL (0.6-4.6); Mean Corpuscular HGB Conc 32.9 g/dL (31.6-35.5); Mean Corpuscular Hemoglobin 29.8 pg (28.0-33.3); Mean Corpuscular Volume 90.6 fL (83.0-100.0); Mean Platelet Volume 11.5 fL (9.4-12.4); Monocytes # 0.4 K/mcL (0.0-1.3); Monocytes % 5.7 %; Neutrophils # 3.6 K/mcL (1.6-8.9); Platelet Count 181 K/mcL (140-400); Red Blood Count 3.19 M/mcL (3.82-4.97); Red Cell Distribution Width 13.7 % (11.5-14.5); Segmented Neutrophils % 54.3 %; White Blood Count 6.7 K/mcL (4.3-11.1)
[2022-05-02 04:01] LABS: Calcium 8.3 mg/dL (8.6-10.3); Potassium 4.6 mEq/L (3.5-5.1)
[2022-05-02] MEDS: Insulin LISPRO 300 UNITS/3 ML VIAL SUBQ SCH ×4 (08:03→20:38)
[2022-05-02] MEDS ORDERED: *HR* Midazolam HCl 2 MG/2 ML VIAL ONE (08:26)
[2022-05-02] MEDS ORDERED: *HR* FentaNYL (PF) 100 MCG/2 ML VIAL ONE (08:26)
[2022-05-02] MEDS ORDERED: 0.9 % Sodium Chloride 1,000 ML ONE (08:27)
[2022-05-02] MEDS ORDERED: Heparin 1,000 UNITS/500 mL 500 ML ONE (08:27)
[2022-05-02] MEDS ORDERED: Iopamidol - 370 200 ML INFUS..BTL ONE (08:27)
[2022-05-02] MEDS ORDERED: *HR* Heparin 10,000 UNIT/10 ML VIAL ONE ×2 (08:27→08:34)
[2022-05-02] MEDS ORDERED: Nitroglycerin 1,000 MCG/5 ML VIAL IV ONE (08:27)
[2022-05-02] MEDS: Budesonide/Formoterol 80/4.5 1 PUFF INH IH SCH ×2 (10:08→19:55)
[2022-05-02] MEDS: Gabapentin 300 MG CAPSULE PO SCH ×3 (10:31→20:47)
[2022-05-02] MEDS: Isosorbide MONOnitrate (24 HR) 30 MG TAB.ER.24H PO SCH (10:32)
[2022-05-02] MEDS: Topiramate 25 MG TABLET PO SCH ×2 (10:32→20:47)
[2022-05-02] MEDS: Metoprolol XL (24 HR) Succ 25 MG TAB.ER.24H PO SCH (10:32)
[2022-05-02] MEDS: Aspirin 81 MG TAB.CHEW PO SCH (10:32)
[2022-05-02] MEDS ORDERED: 0.9 % Sodium Chloride 500 ML IVC SCH (13:45)
[2022-05-02] MEDS: Insulin DETEMIR 100 UNIT/ML X5UNITS SUBQ SCH (20:38)
[2022-05-02] MEDS: Furosemide 20 MG/2 ML VIAL IVP SCH (20:46)
[2022-05-02] MEDS: QUEtiapine Fumarate 100 MG TABLET PO SCH (20:47)
[2022-05-03 02:37] LABS: Basophils % 0.4 %; Eosinophils # 0.3 K/mcL (0.0-0.6); Eosinophils % 4.3 %; Hematocrit 29.3 % (35.3-44.9); Immature Granulocytes % 0.4 % (0-4); Lymphocytes # 1.7 K/mcL (0.6-4.6); Lymphocytes % 25.6 %; Mean Corpuscular HGB Conc 34.1 g/dL (31.6-35.5); Mean Corpuscular Hemoglobin 29.9 pg (28.0-33.3); Mean Corpuscular Volume 87.5 fL (83.0-100.0); Mean Platelet Volume 11.6 fL (9.4-12.4); Monocytes # 0.3 K/mcL (0.0-1.3); Monocytes % 4.9 %; Neutrophils # 4.3 K/mcL (1.6-8.9); Platelet Count 191 K/mcL (140-400); Red Blood Count 3.35 M/mcL (3.82-4.97); Red Cell Distribution Width 13.3 % (11.5-14.5); Segmented Neutrophils % 64.4 %; White Blood Count 6.8 K/mcL (4.3-11.1)
[2022-05-03 02:56] LABS: Calcium 8.8 mg/dL (8.6-10.3); Potassium 4.2 mEq/L (3.5-5.1)
[2022-05-03 03:11] LABS: Troponin I 0.16 ng/mL (< 0.04)
[2022-05-03] MEDS: Budesonide/Formoterol 80/4.5 1 PUFF INH IH SCH (07:37)
[2022-05-03 08:01] VITALS: O2SAT 96
[2022-05-03] MEDS: Insulin LISPRO 300 UNITS/3 ML VIAL SUBQ SCH ×2 (08:09→12:30)
[2022-05-03] MEDS: Topiramate 25 MG TABLET PO SCH (08:11)
[2022-05-03] MEDS: Metoprolol XL (24 HR) Succ 25 MG TAB.ER.24H PO SCH (08:11)
[2022-05-03] MEDS: Isosorbide MONOnitrate (24 HR) 30 MG TAB.ER.24H PO SCH (08:11)
[2022-05-03] MEDS: Aspirin 81 MG TAB.CHEW PO SCH (08:11)
[2022-05-03] MEDS: Gabapentin 300 MG CAPSULE PO SCH (08:11)
[2022-05-03] MEDS: Furosemide 20 MG/2 ML VIAL IVP SCH (08:11)
[2022-05-03 11:46] VITALS: BP 124/72; PULSE 70; TEMP 97.9
[2022-05-03] MEDS ORDERED: Furosemide 20 MG TABLET PO SCH (17:00)
== END 2022-05-03 15:37 | disposition home or self-care (01) | DRG 247 ==
LOC: 2ANU → SUATTDRO 04-29 17:22
PROVIDERS: ADMIT Student in an Organized Health Care Education/Training Program; ATTEND Internal Medicine